=== PATIENT | female | born 1950 | race Caucasian/White ===

== ENCOUNTER → 2019-12-09 10:18 | Outpatient (BNVA) | payer MEDICARE, SELFPAY | PROVIDERS: Family Provider Family Medicine; PCP Family Medicine; Visit Provider Internal Medicine Rheumatology | DX: M35.00 Sjogren syndrome, unspecified (principal); M15.9 Polyosteoarthritis, unspecified; M06.9 Rheumatoid arthritis, unspecified; Z79.899 Other long term (current) drug therapy; M79.7 Fibromyalgia | CPT/HCPCS: 36415; 80053; 85007; 85027; 99214 ==

== ENCOUNTER → 2019-12-10 09:36 | Outpatient (BNVA) | payer MEDICARE, SELFPAY | PROVIDERS: Family Provider Family Medicine; PCP Family Medicine; Visit Provider Internal Medicine Rheumatology | DX: M75.51 Bursitis of right shoulder (principal); M75.52 Bursitis of left shoulder; M17.11 Unilateral primary osteoarthritis, right knee | CPT/HCPCS: 20610; J3301 ==

== ENCOUNTER 2020-02-03 09:45 | Outpatient (CLI) | payer MEDICARE, SELFPAY ==
--- NOTE | 2020-02-03 09:47 | MR_ITS ---
WS: [id number] MRI LUMBAR SPINE NONCONTRAST HISTORY: CHRONIC LUMBAR PAIN COMPARISON: Lumbar spine radiograph 10/30/2019 TECHNIQUE: Sagittal and axial multisequence imaging is submitted. Mild straightening of the normal lumbar lordosis. 20% compression fracture involving the superior end plate of L1 is reidentified. No retropulsion. No acute marrow edema. Very mild disc desiccation throughout the lumbar spine. Conus terminates normally at L1-2 disc level. L1-L2: Mild annular disc bulging and osteophytic ridging. There is a central disc osteophyte complex. No significant encroachment or narrowing of the central canal. L2-L3: No stenosis. L3-L4: Mild annular disc bulging with mild facet and ligamentum flavum arthropathy. No stenosis. L4-L5: Very mild annular disc bulging with annular fissures centrally and to the RIGHT. Moderate liga mentum flavum hypertrophy which is slightly asymmetric and greater on the LEFT. Widening of the with fluid. Fluid within the RIGHT facet joint measures 3.6 mm. There is mild central and subarticular rec ess stenosis. L5-S1: Mild annular disc bulging. 7.8 mm cyst in the far lateral LEFT foramen is inseparable from th e L5 nerve root. May be a nerve root sleeve diverticulum. There is contact on the L5 nerve root. Mild facet joint arthropathy and fluid in the facet joints. MR/MR lumbar spine wo con* [id number] IMPRESSION: 1. Mild central and subarticular recess stenosis at L4-5. 2. Widened fluid-filled facet joints at L4-5, greatest on the RIGHT with the f acet joint separation measuring 3.6 mm. 3. Cystic mass associated with the far lateral LEFT L5 nerve root measures 7.8 mm. May be a nerve root sleeve diverticulum. Further evaluation with contrast MRI is recommended. Cystic mass is inseparable from the LEFT L5 nerve root. 4. Stable 20% compression fracture L1.
== END 2020-02-03 09:46 | disposition home or self-care (01) ==
LOC: RADSHAW 09:45
PROVIDERS: Family Provider Family Medicine; PCP Family Medicine; Visit Provider Family Medicine
DX: M51.26 Other intervertebral disc displacement, lumbar region (principal); M48.061 Spinal stenosis, lumbar region without neurogenic claudication; M54.5 Low back pain; G89.29 Other chronic pain
CPT/HCPCS: 72148

== ENCOUNTER 2020-02-24 09:50 | Outpatient (CLI) | payer MEDICARE, SELFPAY ==
--- NOTE | 2020-02-24 09:56 | MR_ITS ---
WS: [id number] MRI LUMBAR SPINE WITH CONTRAST TECHNIQUE: Sagittal T2 imaging. Axial T1 and T2 imaging. Post gadolinium imaging was obtained. CLINICAL INFORMATION: CHRONIC BACK PAIN/CYSTIC MASS SHOWN ON MRI LSPINE W/O COMPARISON: February 03, 2020 FINDINGS: Again seen is the T2 hyperintense cystic lesion involving the exiting left L5 nerve root measuring 8 mm. Associated peripheral enhancement about the cystic lesion. Cystic lesion abuts the left L5 fluid- filled facets and most likely represents synovial cyst or nerve root sleeve cyst. Otherwise no signif icant changes from previous MR/MR lumbar spine w con [id number] IMPRESSION: 1. Peripheral enhancing 8 mm T2 hyperintense cystic lesion involving the exiti ng left L5 nerve root. This abuts the left L5 fluid-filled facet and most likel y represents synovial cyst or nerve root sleeve cyst. No internal enhancement. 2. Otherwise no significant changes from previous.
== END 2020-02-24 09:51 | disposition home or self-care (01) ==
LOC: RADWPI 09:55
PROVIDERS: Family Provider Family Medicine; PCP Family Medicine; Visit Provider Family Medicine
DX: G89.29 Other chronic pain (principal); M54.5 Low back pain
CPT/HCPCS: 72149; A9579

== ENCOUNTER → 2020-03-10 10:22 | Outpatient (BNVA) | payer MEDICARE, SELFPAY | PROVIDERS: Family Provider Family Medicine; PCP Family Medicine; Visit Provider Internal Medicine Rheumatology | DX: M19.90 Unspecified osteoarthritis, unspecified site (principal); M35.00 Sjogren syndrome, unspecified; Z79.899 Other long term (current) drug therapy; Z11.59 Encounter for screening for other viral diseases; Z72.89 Other problems related to lifestyle | CPT/HCPCS: 36415; 80076; 82565; 85025; 85651; 86140; 86704; 86803; 87340 ==

== ENCOUNTER 2020-05-25 11:00 | Outpatient (CLI) | payer MEDICARE, SELFPAY | END 2020-05-25 11:01 | disposition home or self-care (01) | LOC: SLEEP 05-26 11:57 | PROVIDERS: Family Provider Family Medicine; PCP Family Medicine; Visit Provider Internal Medicine Critical Care Medicine | DX: J96.90 Respiratory failure, unspecified, unspecified whether with hypoxia or hypercapnia (principal) | CPT/HCPCS: 94762 ==

== ENCOUNTER → 2020-06-18 11:37 | Outpatient (BNVA) | payer MEDICARE, SELFPAY | PROVIDERS: Family Provider Family Medicine; PCP Family Medicine; Visit Provider Internal Medicine | DX: M35.00 Sjogren syndrome, unspecified (principal); M17.0 Bilateral primary osteoarthritis of knee; Z79.899 Other long term (current) drug therapy | CPT/HCPCS: 99213 ==

== ENCOUNTER → 2020-06-25 10:26 | Day surgery (SDC) | payer MEDICARE, SELFPAY ==
[2020-06-25 10:45] VITALS: BP 122/72; PULSE 76; RESP 20; TEMP 37; O2SAT 96; BMI 36.8
[2020-06-25] MEDS: cosyntropin 0.25 mg SDV IVP (11:25)
[2020-06-25 12:04] LABS: Cosyntropin Baseline 2.88 mcg/dL
[2020-06-25 13:18] LABS: Cosyntropin 30 Minute 19.45 mcg/dL
== END ==
LOC: OPS 10:29
PROVIDERS: PCP Family Medicine; Visit Provider Family Medicine
DX: E87.1 Hypo-osmolality and hyponatremia (principal)
CPT/HCPCS: 36415; 82533; 96374; 96375; J0834

== ENCOUNTER 2020-07-22 16:11 | Emergency (ER) | payer MEDICARE, SELFPAY ==
[2020-07-22 16:11] VITALS: BP 115/64; PULSE 78; RESP 16; TEMP 36.8; O2SAT 95; BMI 36.2
--- NOTE | 2020-07-22 16:26 | ECG_ITS ---
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 Measurements Intervals [place] Rate: 48 P: 51 SC: 200 QRS: -58 QRSD: 134 T: 77 QT: 516 QTc: 464 Interpretive Statements SINUS BRADYCARDIA INTRAVENTRICULAR CONDUCTION DELAY LEFT VENTRICULAR HYPERTROPHY AND ST-T CHANGE POSSIBLE ANTEROSEPTAL MYOCARDIAL INFARCTION , OF INDETERMINATE AGE Compared to ECG 05/04/2015 05:29:44 Intraventricular conduction delay now present Left ventricular hypertrophy now present ST (T wave) deviation now present Myocardial infarct finding now present Sinus rhythm no longer present T-wave abnormality no longer present Electronically Signed On 07-23-2020 11:34:42 CDT by Pauly Haley M.D. [id number] f
--- NOTE | 2020-07-22 16:26 | XR_ITS ---
WS: [id number] Portable AP upright chest, 07/22/2020 Clinical Data: CHF Comparison: PA and lateral chest, 04/30/2018. Findings: No nodules, masses or effusions are seen. The heart is normal. The pulmonary vascularity is not increased. No pneumonia or pneumothorax is seen. The right diaphragm is elevated and unchanged. There is an orthopedic anchor in the right humeral head. The aortic arch and descending aorta show to rtuosity. XR/XR chest 1V portable [id number] Impression: Atherosclerosis.
--- NOTE | 2020-07-22 16:27 | ED_ITS ---
HPI - Recheck/Abnormal Lab/Rx General: Chief Complaint: Recheck/Abnormal Lab/Rx Stated Complaint: ABNORMAL LABS/ LEG PAIN Time Seen by Provider: 07/22/20 16:25 History of Present Illness: HPI narrative: Patient arrived from [place] [facility] with a history of possible high potassium - and leg swelling that is going on for the last week. Patient in [place] [facility] due to recent back surgery and he is in for rehab. Patient received 3 units of blood while in the hospital in [place] do the 2 bleeding she had from the back surgery where they went into her abdomen L3-L4 she says. Now her leg swelled over the last week she has a history of diabetes and CHF denies any shortness of breath Review of Systems Narrative: Possible high potassium Const: Denies: fever(s), chills or body aches Eyes: Denies: change in vision or blurry vision ENMT: Denies: throat pain or nasal congestion Card: Reports: other (Leg swelling); Denies: dyspnea on exertion Resp: Denies: dyspnea, productive cough or non-productive cough GI: Denies: abdominal pain, nausea or vomiting Musc: Reports: back pain (Chronic); Denies: extremity pain Skin/Breast: Denies: rash Neuro: Denies: headache(s) Psych: Denies: anxiety or depression Prince/Lymph: Denies: easy bruising PFSH ED PFSH: Medical History (Updated 06/10/20 @ 17:19 by Pauly Haley MD) Allergic rhinitis Anxiety Autoimmune disorder Conjunctivitis Coronary atherosclerosis CPAP (continuous positive airway pressure) dependence CVA (cerebral vascular accident) Diabetes mellitus Fibromyalgia Hypertension Immunosuppression Medication monitoring encounter Osteoarthritis of knees, bilateral Polyosteoarthritis, unspecified Recurrent falls Rotator cuff tear arthropathy of both shoulders Sinusitis Sjogren's disease Sjogrens syndrome Surgical History (Updated 05/25/20 @ 09:11 by Camryn Lugo MD) H/O removal of cyst H/O rotator cuff surgery History of cholecystectomy Hx of knee surgery Hx of LASIK Hx of tubal ligation Family History Father Stroke CAD (coronary artery disease) Mother Parkinson disease Other Dementia Diabetes Thyroid disease Social History Smoking and tobacco status: never smoked Alcohol intake: current Alcohol intake frequency: holidays/special occasions only Alcohol type: beer Lives independently: Yes Household members: spouse Housing: House Marital status: Number of children: 4 Current occupational status: retired and disabled History of recent travel: No Current gender identity: Female Physical Exam Const: COMMON NORMALS: no acute distress, average body habitus and patient oriented x3 HENMT: COMMON NORMALS: normocephalic HEAD & SCALP: normal to inspection and normocephalic FACE & SINUS: normal facial exam Eye: COMMON NORMALS: conjunctivae normal GENERAL EYE: appearance normal, both eyes and all related structures CONJUNCTIVA: Yes conjunctivae normal Neck/C-Spine: COMMON NORMALS: no JVD Chest: COMMONS NORMALS: normal inspection of the chest Resp: COMMON NORMALS: normal respiratory effort AUSCULTATION: diminished lung sounds Cardio: COMMON NORMALS: no JVD, regular rate and regular rhythm RATE: regular rate RHYTHM: regular rhythm OTHER: 3+ edema bilateral extremities mild redness to the left lower extremity dry skin GI: COMMON NORMALS: Normal to inspection, nondistended, normoactive bowel sounds present Extremity: COMMON NORMALS: normal to inspection and full ROM Neuro: COMMON NORMALS: patient oriented x3 Course Vital Signs: Vital signs: Vital Signs Temperature 98.2 F 07/22/20 16:11 Pulse Rate 78 07/22/20 16:11 Respiratory Rate 16 07/22/20 16:11 Blood Pressure 115/64 07/22/20 16:11 Pulse Oximetry 95 07/22/20 16:11 Discharge Plan Discharge Prescriptions: No Action albuterol sulfate [ProAir HFA] 90 mcg/actuation HFA aerosol inhaler 2 puff INHALATION QID PRN (Reason: Shortness Of Breath) RF: 0 aspirin 325 mg tablet 325 mg PO DAILY RF: 0 Women's Multivitamin 18 mg iron-400 mcg-500 mg tablet 1 tab PO DAILY RF: 0 cholecalciferol (vitamin D3) 1,000 unit capsule 3,000 unit PO DAILY RF: 0 ibuprofen 800 mg tablet 800 mg PO TID PRN (Reason: Pain, Mild) RF: 0 fluticasone propionate [Flonase Allergy Relief] 50 mcg/actuation spray,suspension 2 spray INTRANASAL DAILY RF: 0 levothyroxine 125 mcg capsule 125 mcg PO DAILY RF: 0 levothyroxine 100 mcg capsule 100 mcg PO DAILY RF: 0 tramadol 50 mg tablet See Rx Instructions PO Q8H PRN (Reason: pain) Qty: 180 RF: 2 mecobalamin (vitamin B12) 5,000 mcg tablet,disintegrating 5,000 mcg PO DAILY RF: 0 oxycodone-acetaminophen 5-325 mg tablet 1 tab PO Q8H PRN (Reason: Pain, Severe) RF: 0 Trelegy Ellipta 100-62.5-25 mcg blister with device 1 inh INHALATION Q24H RF: 0 spironolactone 25 mg tablet 25 mg PO DAILY RF: 0 metformin 500 mg tablet 1,000 mg PO DAILY RF: 0 citalopram [Celexa] 20 mg tablet 20 mg PO DAILY RF: 0 lisinopril 20 mg tablet 20 mg PO DAILY RF: 0 diltiazem HCl 240 mg capsule,extended release 24 hr 240 mg PO QAM RF: 0 montelukast 10 mg tablet 10 mg PO DAILY RF: 0 Narcan 4 mg/actuation spray,non-aerosol 4 mg INTRANASAL Q2M RF: 0 nitroglycerin [Nitrostat] 0.4 mg tablet, sublingual 0.4 mg SUBLINGUAL Q5M PRN (Reason: Chest Pain) RF: 0 pilocarpine HCl [Salagen (pilocarpine)] 5 mg tablet 5 mg PO BID Qty: 180 RF: 3 cyclobenzaprine 5 mg tablet 5 mg PO TID PRN (Reason: muscle spasm) Qty: 90 RF: 2 gabapentin 400 mg capsule See Rx Instructions PO DAILY Qty: 150 RF: 2 hydroxychloroquine [Plaquenil] 200 mg tablet 200 mg PO BID Qty: 60 RF: 2 omeprazole 20 mg capsule,delayed release(DR/EC) 20 mg PO DAILY Qty: 30 RF: 2 isosorbide dinitrate 30 mg Tablet 30 mg PO TID RF: 0 Myrbetriq 25 mg tablet extended release 24 hr 25 mg PO DAILY RF: 0 nystatin 100,000 unit/gram Powder 1 applic TOPICAL BID RF: 0 leflunomide 10 mg tablet 15 mg PO DAILY RF: 0 Savella 50 mg tablet 50 mg PO BID RF: 0 Coding Level of Care Code ED 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
[2020-07-22 16:54] VITALS: BP 115/63; PULSE 75; RESP 17; O2SAT 96
[2020-07-22 17:06] LABS: Basophils % 0.2 %; Eosinophils # 0.3 10^3/uL (0.0-0.8); Eosinophils % 4.2 %; Hematocrit 32.4 % (37.0-47.0); Hemoglobin 9.9 g/dL (11.5-15.3); Lymphocytes # 0.9 10^3/uL (0.8-4.8); Lymphocytes % 15.2 %; Mean Corpuscular HGB Conc 30.6 g/dL (30.0-36.0); Mean Corpuscular Hemoglobin 26.5 pg (28.0-34.0); Mean Corpuscular Volume 86.9 fL (81-99); Mean Platelet Volume 9.6 fL (7.4-10.4); Monocytes # 0.5 10^3/uL (0.2-0.9); Monocytes % 7.9 %; Neutrophils # 4.38 10^3/uL (1.8-7.7); Neutrophils % 70.6 %; Nucleated Red Blood Cells % 0 %; Platelet Count 515 10^3/cmm (130-400); Red Blood Count 3.73 10^6/uL (4.1-5.3); Red Cell Distribution Width 15.8 % (12.1-15.1); White Blood Count 6.2 10^3/uL (4.0-10.0)
[2020-07-22 17:40] LABS: Alanine Aminotransferase 13 U/L (0-33); Albumin Level 3.4 g/dL (3.5-5.2); Alkaline Phosphatase 159 IU/L (35-105); Anion Gap 17.4 (5-19); Aspartate Amino Transferase 20 U/L (0-32); Blood Urea Nitrogen 27 mg/dL (8-23); Calcium 8.6 mg/dL (8.5-10.5); Carbon Dioxide 19 mmol/L (22-29); Chloride 99 mmol/L (98-107); Globulin 2.4 g/dL (1.3-4.6); Glomerular Filtration Rate 34.4 mL/min (90-130); Glucose 87 mg/dL (65-115); NT Pro B Type Natriuretic Pept 757 pg/mL (0-125); Osmolality Calculated 266 mOsm/kg (285-295); Potassium 5.4 mmol/L (3.5-5.1); Sodium 130 mmol/L (136-145); Total Bilirubin 0.3 mg/dL (0.15-1.2); Total Protein 5.8 g/dL (6.6-8.7)
--- NOTE | 2020-07-22 18:11 | USCV_ITS ---
Sol Wall Age: 70 Gender: F : 1950 Exam Date: 07/22/2020 20:50 Ordering Phys: Chelsea Godoy MD Technologist: Severino Felder [place] [facility] [place]: BILAT EDEMA HISTORY: Lower extremity swelling. PROCEDURES: The venous duplex Doppler examination of both lower extremities was performed in the standard fashion. The following venous structures were evaluated: common femoral vein, profunda vein, proximal portion of the greater saphenous vein, superficial femoral vein, and the popliteal vein. In addition, the posterior tibial and peroneal trunk were evaluated. Bilaterally, the common femoral, superficial femoral, profunda femoral, popliteal, posterior tibial, greater saphenous veins, and the peroneal trunk were identified and interrogated in the standard fashion. These veins were found to be easily compressible with spontaneous blood flow. No evidence of insufficiency or thrombus noted. FINDINGS: Normal 2-D Doppler and augmentation and compressibility throughout the lower extremity venous structures. Additional imaging through the proximal calf veins also reveals no thrombus. Limited evaluation of the greater saphenous vein is patent with no thrombus.. CONCLUSIONS No evidence of right lower extremity DVT. No evidence of left lower extremity DVT. Malick Capone MD (Electronically Signed) Final Date: 23 July 2020 14:36 S
[2020-07-22 18:16] LABS: Add Urine Microscopic? YES; Bilirubin Urine Neg (NEGATIVE); Blood Urine Neg (Negative); Glucose Urine UA Norm (Normal); Ketones Urine Negative (Negative); Leukocyte Esterase Urine Negative (Negative); Nitrate Urine Negative (Negative); Protein Urine Neg (Negative); Urine Appearance Hazy (CLEAR); Urine Color Yellow (Yellow); Urobilinogen Urine Norm (Negative); pH Urine 5 (5-7)
[2020-07-22 18:22] LABS: Add Urine Culture? No; Bacteria Urine TRACE
[2020-07-22] MEDS: FUROsemide 10 mg/mL SDV 4mL 40 MG IVP (19:03)
[2020-07-22 19:05] VITALS: BP 105/51; PULSE 78; RESP 20; O2SAT 93
[2020-07-22 20:32] VITALS: BP 128/67; PULSE 83
[2020-07-22 21:15] VITALS: RESP 16
[2020-07-22] MEDS: morphine 4 mg/mL SDV 1 mL IVP (21:15)
[2020-07-22 22:23] VITALS: BP 114/69; O2SAT 90
== END 2020-07-22 22:26 | disposition home or self-care (01) ==
PROVIDERS: Nurse Practitioner Family; Emergency Provider Emergency Medicine; PCP Family Medicine
DX: M79.89 Other specified soft tissue disorders (principal); Z79.82 Long term (current) use of aspirin; Z86.73 Personal history of transient ischemic attack (TIA), and cerebral infarction without residual deficits; E11.9 Type 2 diabetes mellitus without complications; I10 Essential (primary) hypertension
CPT/HCPCS: 12345; 71045; 80053; 81001; 83880; 85025; 93005; 93970; 96374; 96375; 99283; J1940; J2270

== ENCOUNTER 2020-07-30 03:10 | Emergency (ER) | payer MEDICARE, SELFPAY ==
[2020-07-30 03:10] VITALS: BP 131/88; PULSE 89; RESP 16; TEMP 36.8; O2SAT 94; BMI 36.2
--- NOTE | 2020-07-30 03:14 | W.ED.FALL ---
HPI - Fall General: Chief Complaint: Fall Stated Complaint: FALL Time Seen by Provider: 07/30/20 03:10 Source: patient and EMS Mode of arrival: EMS Limitations: no limitations History of Present Illness: HPI Narrative: 70-year-old female states she had gotten up tonight and tripped and fell. She fell face forward onto her floor. She states she hit her head and her nose. She does have a small laceration to the bridge of her nose. She has mild pain in her nose she rates a 3 out of 10. She denies any other injuries. Denies any neck pain. Onset (ago): minute(s) Fall from: standing Fall witnessed: no Place fall occurred: home Loss of consciousness: None Associated symptoms-after fall: Denies abdominal pain, chest pain, headache(s) or neck pain Review of Systems Const: Denies: fever(s), chills, body aches or change in appetite Eyes: Denies: blurry vision or eye discomfort ENMT: Denies: throat pain or dental pain Card: Denies: chest pain Resp: Denies: dyspnea GI: Denies: abdominal pain, nausea, vomiting or diarrhea : Denies: dysuria Musc: Denies: neck pain or back pain Skin/Breast: Denies: rash Neuro: Denies: headache(s) Psych: Denies: depression Prince/Lymph: Denies: easy bruising All/Imm: Denies: urticaria PFSH ED PFSH: Medical History Allergic rhinitis Anxiety Autoimmune disorder Conjunctivitis Coronary atherosclerosis CPAP (continuous positive airway pressure) dependence CVA (cerebral vascular accident) Diabetes mellitus Fibromyalgia Hypertension Immunosuppression Medication monitoring encounter Osteoarthritis of knees, bilateral Polyosteoarthritis, unspecified Recurrent falls Rotator cuff tear arthropathy of both shoulders Sinusitis Sjogren's disease Sjogrens syndrome Surgical History H/O removal of cyst H/O rotator cuff surgery History of cholecystectomy Hx of knee surgery Hx of LASIK Hx of tubal ligation Family History Father Stroke CAD (coronary artery disease) Mother Parkinson disease Other Dementia Diabetes Thyroid disease Social History Smoking and tobacco status: never smoked Alcohol intake: current Alcohol intake frequency: holidays/special occasions only Alcohol type: beer Lives independently: Yes Household members: spouse Housing: House Marital status: Number of children: 4 Current occupational status: retired and disabled History of recent travel: No Current gender identity: Female Physical Exam Const: COMMON NORMALS: no acute distress, patient oriented x3 and healthy appearing HENMT: COMMON NORMALS: normocephalic and atraumatic HEAD & SCALP: normocephalic and atraumatic OTHER: contusion and laceration to bridge of nose. laceration is 1cm and superficial Eye: COMMON NORMALS: Equal, round and reactive pupils present and EOMs intact bilaterally PUPIL: Yes Equal, round and reactive pupils present Neck/C-Spine: COMMON NORMALS: full ROM and supple Chest: COMMONS NORMALS: normal inspection of the chest and normal palpation of entire chest wall Resp: COMMON NORMALS: normal respiratory effort, No retractions, No use of accessory muscles and clear to auscultation bilaterally AUSCULTATION: clear to auscultation bilaterally Cardio: COMMON NORMALS: regular rate, regular rhythm and No murmurs present (Cardio) RATE: regular rate RHYTHM: regular rhythm GI: COMMON NORMALS: Normal to inspection, nondistended, normoactive bowel sounds present, Soft to palpation, non-tender and no masses PALPATION: Yes Soft to palpation Extremity: COMMON NORMALS: normal to inspection and full ROM Neuro: COMMON NORMALS: patient oriented x3, moves all extremities and no focal motor deficits Psych: COMMON NORMALS: mental status grossly normal, Normal thought process present and cooperative THOUGHT PROCESS: Normal thought process present Skin: COMMON NORMALS: no rashes or lesions noted and no wounds GENERAL SKIN EXAM: no rashes or lesions noted Procedures Laceration Laceration 1: Site: face Size (cm): 1 Description: linear Depth: simple, single layer Pre-repair: wound explored and irrigated extensively Skin layer closed with: other (dermabond) Course Vital Signs: Vital signs: Vital Signs Temperature 98.3 F 07/30/20 03:10 Pulse Rate 89 07/30/20 03:10 Respiratory Rate 18 07/30/20 04:35 Blood Pressure 131/88 07/30/20 03:10 Pulse Oximetry 97 09/04/20 04:35 MDM - Fall MDM Narrative: Medical decision making narrative: Sol presents here with nasal fracture along with laceration from a fall. Patient's head CT here is normal CT face does show a nasal fracture.. The laceration with history of adhesive. Patient is well-appearing and stable for discharge. Patient is to follow-up with ENT and return if worsening. She understands and agrees to the plan. Imaging Data^: CT Head: Radiologist's impression: [address] [address] [address] Scan Report Signed Patient: Sol Wall Unit #: [id number] : 1950 Age/Sex: 70 / F ADM Date: 07/30/20 Loc: ER Room/Bed: Attending Dr: Ordering Provider/Ordering MD: Laura Lara MD Date of Service: 07/30/20 Procedure(s): CT head wo con* [id number] Accession Number(s): [id number] Report Number: [id number] PROCEDURE INFORMATION: Exam: CT Head Without Contrast Exam date and time: 07/30/2020 4:19 AM Age: 70 years old Clinical indication: Injury or trauma; Fall; Initial encounter; Blunt trauma (contusions or hematomas); Without loss of consciousness; Additional info: Head injury TECHNIQUE: Imaging protocol: Computed tomography of the head without contrast. Radiation optimization: All CT scans at this facility use at least one of these dose optimization techniques: automated exposure control; mA and/or kV adjustment per patient size (includes targeted exams where dose is matched to clinical indication); or iterative reconstruction. COMPARISON: MR head wo con* [id number] 01/10/2016 5:14 PM RADIATION DOSE METRICS: Total DLP (mGy-cm): 892 FINDINGS: Brain: There is mild diffuse cerebral atrophy. Patchy areas of hypoattenuation are seen in the deep white matter of the cerebral hemispheres bilaterally compatible with deep white matter microvascular disease. Ventricles: Normal. No ventriculomegaly. Bones/joints: There is deformity of the nasal bones compatible with nasal fractures. Sinuses: Fluid and mucosal thickening is seen within the left maxillary sinus. Mastoid air cells: Visualized mastoid air cells are well aerated. Soft tissues: Unremarkable. CT/CT head wo con* [id number] IMPRESSION: 1. There are no acute intracranial findings. 2. Nasal fractures. Other CT: Radiologist's impression: [facility] [address] [place] [address] CT Scan Report Signed Patient: Sol Wall Unit #: [id number] : 1950 Age/Sex: 70 / F ADM Date: 07/30/20 Loc: ER Room/Bed: Attending Dr: Ordering Provider/Ordering MD: Laura Lara MD Date of Service: 07/30/20 Procedure(s): CT facial bones wo con* [id number] Accession Number(s): [id number] Report Number: [id number] PROCEDURE INFORMATION: Exam: CT Maxillofacial Without Contrast Exam date and time: 07/30/2020 4:19 AM Age: 70 years old Clinical indication: Injury or trauma; Fall; Initial encounter; Blunt trauma (contusions or hematomas); Nose; Additional info: CT TECHNIQUE: Imaging protocol: Computed tomography images of the face without contrast. Radiation optimization: All CT scans at this facility use at least one of these dose optimization techniques: automated exposure control; mA and/or kV adjustment per patient size (includes targeted exams where dose is matched to clinical indication); or iterative reconstruction. COMPARISON: CT Sinus wo IV contrast* [id number] 11/16/2017 11:40 AM RADIATION DOSE METRICS: Total DLP (mGy-cm): 742.8 FINDINGS: Orbits: Orbits are normal. Globes are unremarkable. Bones/joints: There is deformity of the nasal bones compatible with bilateral nasal fractures. Sinuses: Fluid and mucosal thickening is seen within the left maxillary sinus. Soft tissues: Unremarkable. CT/CT facial bones wo con* [id number] IMPRESSION: Bilateral nasal fractures. Discharge Plan Discharge Patient Disposition: Home Clinical Impression: Fall Qualifiers: Encounter type: initial encounter Qualified Code(s): W19.XXXA - Unspecified fall, initial encounter Fracture of nasal bone Qualifiers: Encounter type: initial encounter Fracture type: closed Qualified Code(s): S02.2XXA - Fracture of nasal bones, initial encounter for closed fracture Laceration of nose Qualifiers: Encounter type: initial encounter Qualified Code(s): S01.21XA - Laceration without foreign body of nose, initial encounter Condition: Stable Prescriptions: No Action cholecalciferol (vitamin D3) 1,000 unit capsule 25 mcg PO DAILY RF: 0 fluticasone propionate [Flonase Allergy Relief] 50 mcg/actuation spray,suspension 2 spray INTRANASAL DAILY RF: 0 levothyroxine 100 mcg capsule 112 mcg PO DAILY RF: 0 tramadol 50 mg tablet See Rx Instructions PO Q8H PRN (Reason: pain) Qty: 180 RF: 2 oxycodone-acetaminophen 5-325 mg tablet 1 tab PO Q4H PRN (Reason: Pain, Severe) RF: 0 Trelegy Ellipta 100-62.5-25 mcg blister with device 2 inh INHALATION Q24H RF: 0 spironolactone 25 mg tablet 25 mg PO DAILY RF: 0 metformin 500 mg tablet 500 mg PO BID RF: 0 citalopram [Celexa] 20 mg tablet 20 mg PO DAILY RF: 0 lisinopril 20 mg tablet 20 mg PO DAILY RF: 0 diltiazem HCl 240 mg capsule,extended release 24 hr 240 mg PO QAM RF: 0 montelukast 10 mg tablet 10 mg PO DAILY RF: 0 pilocarpine HCl [Salagen (pilocarpine)] 5 mg tablet 5 mg PO BID Qty: 180 RF: 3 gabapentin 400 mg capsule See Rx Instructions PO DAILY Qty: 150 RF: 2 hydroxychloroquine [Plaquenil] 200 mg tablet 200 mg PO BID Qty: 60 RF: 2 omeprazole 20 mg capsule,delayed release(DR/EC) 20 mg PO DAILY Qty: 30 RF: 2 leflunomide 10 mg tablet 15 mg PO DAILY RF: 0 Lasix 40 mg Tablet 40 mg PO DAILY RF: 0 nystatin 100,000 unit/mL Suspension 1 ml PO QID RF: 0 prednisone 20 mg Tablet 40 mg PO DAILY RF: 0 Senna-S 8.6-50 mg Tablet 1 tab-cap PO BID PRN (Reason: Constipation) RF: 0 sodium chloride 1 gram Tablet 1,000 mg PO BID RF: 0 MagOx 400 mg (241.3 mg magnesium) Tablet 400 mg PO DAILY RF: 0 Milk of Magnesia 400 mg/5 mL Suspension 30 ml PO DAILY PRN (Reason: Constipation) RF: 0 bisacodyl 10 mg Suppository 10 mg OH DAILY PRN (Reason: Constipation) RF: 0 Benadryl 25 mg Capsule 25 mg PO Q6H PRN (Reason: Allergy Symptoms) RF: 0 Enema 19-7 gram/118 mL Enema 118 ml OH DAILY PRN (Reason: Constipation) RF: 0 aspirin 81 mg Tablet,Chewable 81 mg PO DAILY RF: 0 Miralax 17 gram/dose Powder 17 g PO DAILY PRN (Reason: Constipation) RF: 0 biotin 1,000 mcg Tablet,Chewable 1,000 mcg PO DAILY RF: 0 cyclobenzaprine 5 mg tablet 20 mg PO BID RF: 0 Discharge Orders: Discharge Order (Routine); Ordered 07/30/20 Ordered By: Laura Lara Referrals: Darrick Burnett MD [Physician] - 1-3 days Pool Arriaga MD [Primary Care Provider] - Discharge Diet: Advance as tolerated Discharge Activity: Resume usual activity Patient Instructions: Nasal Fracture (ED), Skin Adhesive Care (ED) Coding Level of Care Code ED Cotton Breeder for Chg Fwd Exam Comprehensive
[2020-07-30 04:35] VITALS: RESP 18; O2SAT 97
[2020-07-30 05:01] VITALS: BP 148/80
--- NOTE | 2020-07-30 08:06 | DCPLANNER ---
supportive employment case manager had message to schedule a follow up appointment for patient with Dr. Burnett, ENT. supportive employment case manager faxed patients information to the office of Dr. Burnett. Clinic will call patient with appointment information.
--- NOTE | 2020-08-06 15:35 | DCPLANNER ---
Patient has a follow up appointment scheduled for Sunday, August 09, [address] at 2:[address] Burnett. Clinic called patient with appointment information.
--- NOTE | 2020-08-19 08:26 | DCPLANNER ---
Patient had a follow up appointment with Dr. Burnett, ENT on 08.10.20 - patient did attend the appointment.
== END 2020-07-30 05:02 | disposition home or self-care (01) ==
PROVIDERS: Emergency Provider Emergency Medicine; PCP Family Medicine
DX: S02.2XXA Fracture of nasal bones, initial encounter for closed fracture (principal); S01.21XA Laceration without foreign body of nose, initial encounter; Z79.82 Long term (current) use of aspirin; W01.0XXA Fall on same level from slipping, tripping and stumbling without subsequent striking against object, initial encounter; Z86.73 Personal history of transient ischemic attack (TIA), and cerebral infarction without residual deficits; E11.9 Type 2 diabetes mellitus without complications; I10 Essential (primary) hypertension
CPT/HCPCS: 12345; 70450; 70486; 99281; 99283

== ENCOUNTER 2020-08-11 10:54 | Outpatient (CLI) | payer MEDICARE, SELFPAY ==
[2020-08-11 11:46] LABS: Lipase 57 U/L (13-60)
== END 2020-08-11 10:55 | disposition home or self-care (01) ==
LOC: LAB 10:58
PROVIDERS: PCP Family Medicine; Visit Provider Family Medicine
DX: R11.0 Nausea (principal); R62.7 Adult failure to thrive
CPT/HCPCS: 83690

== ENCOUNTER 2020-08-16 09:54 | Outpatient (CLI) | payer MEDICARE, SELFPAY ==
--- NOTE | 2020-08-16 10:04 | XR_ITS ---
WS: [id number] LUMBAR SPINE: 3 VIEWS TECHNIQUE: AP, lateral and L5-S1 spot. HISTORY: ARTHRODESIS STATUS COMPARISON: 10/30/2019 Anterior lumbar fusion at L4-5 with interbody spacer are new since 10/30/2019. No prior studies for co mparison. No lucency around the hardware. Moderate disc space narrowing at L4-5. Facet joint arthriti s most significant at L5-S1. Mild compression deformity involving the superior endplate of L1 probabl y not significantly changed since prior studies. SI joints are symmetric bilaterally. No soft tissue abnormalities. Prior cholecystectomy. XR/XR lumbar spine 2-3V* [id number] IMPRESSION: 1. Interval anterior lumbar fusion with interbody spacer at the L4-5 level sin ce 10/30/2019. No complications apparent. No comparison radiographs. 2. Stable chronic compression deformity of L1.
== END 2020-08-16 09:55 | disposition home or self-care (01) ==
LOC: RADWPI 09:59
PROVIDERS: Family Provider Family Medicine; PCP Family Medicine; Visit Provider Physician Assistant Surgical
DX: Z98.1 Arthrodesis status (principal)
CPT/HCPCS: 72100

== ENCOUNTER 2020-08-24 11:18 | Outpatient (CLI) | payer MEDICARE, SELFPAY ==
--- NOTE | 2020-08-24 11:25 | CT_ITS ---
WS: [id number] CT ABDOMEN PELVIS TECHNIQUE: Contrast-enhanced CT of the abdomen and pelvis with coronal and sagittal reformatted image s. CLINICAL INFORMATION: VOMITING COMPARISON: None. DLP: 1247.[address] scans at [facility] use at least one of these dose optimization techniques: automat ed exposure control; mA and/or kV adjustment per patient size (includes targeted exams where dose is matched to clinical indication); or iterative reconstruction. FINDINGS: Postoperative changes L4-5 anterior screw fixation with interbody fusion graft. No evidence of hardwa re loosening. Low-attenuation peripheral enhancing fluid collection in the left lower quadrant presum ably along the surgical tract. Fluid collection measures 11.8 x 11.8 x 11.6 cm with peripheral enhanc ement. Minimal surrounding induration. This extends to abut the anterior fusion at L4-5. Mass effect on the adjacent bowel loops. No evidence of high-grade obstruction. Normal liver. Mild intrahepatic biliary ductal dilatation. Cholecystectomy clips. Fatty atrophy of th e pancreas. Splenic granulomas. Normal GE junction. Normal bilateral renal parenchymal enhancement. S mall left adrenal adenoma measuring 13 mm. Slight subsegmental atelectasis in the lung bases. Left pelvocaliectasis and ureterectasis with obstruction of the left ureter via the large fluid colle ction. Left distal ureter not well visualized. Normal caliber abdominal aorta. No periaortic lymphadenopathy. Normal sigmoid colon. A few diverticul i. Sigmoid colon is displaced into the midabdomen. No evidence of large or small bowel obstruction. T hickening with peripheral enhancement and surrounding inflammation involving the cecum and ascending colon extending into the hepatic flexure suspicious for colitis. Transverse colon is normal and decom pressed. Normal appendix. Distal ileum appears normal. Mild inflammatory stranding with a few reactive lymph nodes in the right lower quadrant. CT/CT abdomen pelvis w con* [id number] IMPRESSION: 1. Large peripherally enhancing low-attenuation fluid collection in the left l ower abdomen extending into the pelvis. This abuts the L4-5 fusion likely due t o recent surgery. Low-attenuation fluid collection likely represents postoperat preston seroma with peripheral enhancement measuring 11.8 11.8 x 1.6 cm. Only minim al surrounding induration. 2. Inflammatory stranding with submucosal enhancement and thickening involving the cecum and ascending colon suspicious for colitis. A few reactive lymph nod es in the right lower quadrant. Appendix appears normal. 3. Prior cholecystectomy. 4. Mild left renal pelvocaliectasis and ureterectasis with obstruction left ur eter by the large seroma. Recommend correlation with renal function. Normal garima al parenchymal enhancement. 5. L4-5 fusion and interbody graft appears in good position. Notified Pool Arriaga MD at 08/24/2020 2:03 PM.
[2020-08-24] MEDS: iohexol 300 mg/mL 50 mL Btl PO (12:02)
[2020-08-24] MEDS: iodixanol 320 mg/mL 100mL Btl IV (13:19)
== END 2020-08-24 11:19 | disposition home or self-care (01) ==
LOC: RADWPI 11:23
PROVIDERS: Family Provider Family Medicine; PCP Family Medicine; Visit Provider Family Medicine
DX: R11.10 Vomiting, unspecified (principal); M43.26 Fusion of spine, lumbar region; N13.4 Hydroureter
CPT/HCPCS: 74177; Q9967

== ENCOUNTER → 2020-09-06 09:43 | Outpatient (BNVA) | payer MEDICARE, SELFPAY | PROVIDERS: Family Provider Family Medicine; PCP Family Medicine; Visit Provider Specialist | DX: M17.0 Bilateral primary osteoarthritis of knee (principal); M23.42 Loose body in knee, left knee; M23.41 Loose body in knee, right knee | CPT/HCPCS: 73560; 73565 ==

== ENCOUNTER 2020-09-13 13:01 | Outpatient (CLI) | payer MEDICARE, SELFPAY ==
--- NOTE | 2020-09-13 13:10 | CT_ITS ---
WS: [id number] CT ABDOMEN AND PELVIS WITH CONTRAST HISTORY: INTRA ABDOMINAL FLUID TECHNIQUE: Imaging performed of the abdomen and pelvis with IV contrast. Single phase imaging of the abdomen. Coronal and sagittal reformats are submitted. All CT scans at [facility] use at least one of these dose optimization techniques: automated exposure control; mA and/or kV adjustment per patient size (includes targeted exams where dose is matched to clinical indication); or iterativ e reconstruction. IV CONTRAST: Visipaque 320; 95 mL IV. Oral contrast: Yes. DLP: 1220.75 mGycm COMPARISON: 08/24/2020 and 07/16/2013 Lower thorax: Slight elevation of the RIGHT hemidiaphragm. Heart is normal size. Small hiatal hernia. Liver/biliary system: Mild central bile duct dilatation is probably physiologic. There is mild hepati c steatosis along the falciform ligament. Gallbladder: Status post cholecystectomy. Common bile duct at the pancreatic head is dilated to 9 mm. Pancreas: Pancreas is atrophied. Spleen: Normal size spleen with numerous granulomata. Adrenal glands: Mild thickening of the LEFT adrenal gland is stable. Nodule measures 1.5 x 1.0 cm wit h no change. Stable since 2012. Right kidney: Normal. Left kidney: Normal. Resolved hydronephrosis since 08/24/2020. Aorta: Mild atherosclerosis with no aneurysm. Moderate decrease in size of the ovoid fluid collection in the LEFT pelvis. This collection extends o christianne length of 8.7 cm x 10.5 x 8.1 cm. There is been a moderate decrease in size since the prior study . Mass is inseparable from the fusion hardware in the lower lumbar spine. LEFT iliac artery is closel y associated with the posterior aspect. There is no enhancement within this fluid collection although there is some very mild peripheral enhancement. Lymphadenopathy: None. Free fluid: No free fluid. GI tract: Normal appendix. No GI tract obstruction. There is mild fecal retention. No significant inf lammation involving the cecum. Abdominal wall: Unremarkable abdominal wall. No hernia. Pelvis: No free fluid in the pelvis. Uterus is midline. No adnexal mass. Bones: Prior anterior lumbar fusion at L4-5. CT/CT abdomen pelvis w con* [id number] IMPRESSION: 1. Fluid collection with peripheral enhancement in the LEFT pelvis has moderat johnathan decreased in size since 08/24/2020. Thought to be related to the prior lumba r surgery. May be a seroma or resolving hematoma or lymphocele. 2. Resolved cecal enhancement and colitis. 3. Resolved mild LEFT hydronephrosis. 4. Stable LEFT adrenal gland nodule.
[2020-09-13] MEDS: iohexol 300 mg/mL 50 mL Btl PO (13:18)
[2020-09-13] MEDS: iodixanol 320 mg/mL 100mL Btl IV (15:08)
== END 2020-09-13 13:02 | disposition home or self-care (01) ==
LOC: RADWPI 13:05
PROVIDERS: PCP Family Medicine; Visit Provider Family Medicine
DX: R18.8 Other ascites (principal); D44.12 Neoplasm of uncertain behavior of left adrenal gland
CPT/HCPCS: 74177; Q9967

== ENCOUNTER 2020-10-29 12:39 | Outpatient (CLI) | payer MEDICARE, SELFPAY ==
--- NOTE | 2020-10-29 12:58 | XR_ITS ---
WS: [id number] Lumbar spine, AP and lateral views, 10/29/2020 Clinical Data: LUMBAR SPINAL FUSION Comparison: Lumbar spine, 08/16/2020. Findings: The anterior fusion of L4 and L5 with an interbody device has not changed. The patient has since had a posterior fusion with bilateral pedicle screws connected with rods at L4-L5. The loss of anterior a nd central vertebral body height of L1 and the slight loss of central vertebral body height of L2 hav e not changed. There are clips in the upper abdomen from a cholecystectomy. The transverse processes and SI joints are not remarkable. XR/XR lumbar spine 2-3V* [id number] Impression: 1. Posterior lumbar fusion at L4 and L5. 2. No change in anterior fusion of L4 and L5.
== END 2020-10-29 12:40 | disposition home or self-care (01) ==
LOC: RADWPI 12:41
PROVIDERS: PCP Family Medicine; Visit Provider Physician Assistant Surgical
DX: Z98.1 Arthrodesis status (principal); M43.26 Fusion of spine, lumbar region
CPT/HCPCS: 72100

== ENCOUNTER → 2020-11-25 09:10 | Outpatient (BNVA) | payer MEDICARE, SELFPAY | PROVIDERS: PCP Family Medicine; Visit Provider Internal Medicine | DX: M19.90 Unspecified osteoarthritis, unspecified site (principal); M17.0 Bilateral primary osteoarthritis of knee; M35.00 Sjogren syndrome, unspecified; Z79.899 Other long term (current) drug therapy; D86.9 Sarcoidosis, unspecified | CPT/HCPCS: 36415; 80053; 85025; 85651; 86140; 86431; 99214 ==

== ENCOUNTER 2020-11-30 12:47 | Outpatient (CLI) | payer MEDICARE, MEDICAID, SELFPAY ==
--- NOTE | 2020-11-30 12:52 | XR_ITS ---
WS: [id number] TECHNIQUE: 2 views of the left hand CLINICAL INFORMATION: Z51.81 - Encounter for therapeutic drug level monitoring COMPARISON: None. FINDINGS: Normal metacarpals. Normal MCP joint. Metacarpal heads are normal in appearance. Erosive changes with loss of the joint space and periarticular osteophytes involving the second and third DIP joints. Thi s is progressed since 2010. Radiocarpal joint: Mild narrowing Carpal bones: Degenerative arthritis first CMC and STT. XR/XR hand LT 2V [id number] IMPRESSION: 1. Erosive changes with loss of the joint space and periarticular osteophytes with subluxation involving the second and third DIP joints. This is new since . 2. Mild degenerative narrowing radiocarpal joint. 3. Moderate degenerative arthritis first CMC and STT with subchondral sclerosi s.
--- NOTE | 2020-11-30 12:52 | XR_ITS ---
WS: [id number] TECHNIQUE: 2 views of the right hand CLINICAL INFORMATION: Z51.81 - Encounter for therapeutic drug level monitoring COMPARISON: 2010 FINDINGS: Normal metacarpals. Normal MCP joint. Metacarpal heads are normal in appearance. Mild degenerative na rrowing involving the second and third DIP joints worse involving the third DIP with a small amount o f subchondral sclerosis. No significant erosive changes. Radiocarpal joint: Mild narrowing Carpal bones: Normal. XR/XR hand RT 2V [id number] IMPRESSION: 1. Mild degenerative arthritis worse involving the second and third DIP joints . No significant erosive changes. Small amount of subchondral sclerosis third D IP joint. 2. Mild narrowing of the radiocarpal joint. 3. Above findings have progressed since 2010.
== END 2020-11-30 12:48 | disposition home or self-care (01) ==
LOC: RADWPI 12:49
PROVIDERS: PCP Family Medicine; Visit Provider Internal Medicine
DX: Z51.81 Encounter for therapeutic drug level monitoring (principal); M19.042 Primary osteoarthritis, left hand
CPT/HCPCS: 73120

== ENCOUNTER → 2021-01-27 13:19 | Outpatient (BNVA) | payer MEDICARE, SELFPAY | PROVIDERS: PCP Family Medicine; Visit Provider Internal Medicine | DX: M19.90 Unspecified osteoarthritis, unspecified site (principal); M35.00 Sjogren syndrome, unspecified; D89.9 Disorder involving the immune mechanism, unspecified | CPT/HCPCS: 36415; 80053; 85025; 85651; 86140; 99214 ==

== ENCOUNTER 2021-03-29 07:48 | Outpatient (CLI) | payer MEDICARE, MEDICAID, SELFPAY ==
--- NOTE | 2021-03-29 08:24 | XR_ITS ---
WS: [id number] LUMBAR SPINE: 2 VIEWS TECHNIQUE: AP and lateral. HISTORY: ARTHRODESIS STATUS COMPARISON: 10/29/2020 There is extensive anterior and posterior fusion hardware at the L4-5 level. Posterior fusion screws and vertical rods appears intact. There is mild lucency around the pedicle screws at L4. Anterior fus ion hardware with interbody spacer is unchanged. L1 10% fracture is similar to 10/29/2020. Prior cholecystectomy. XR/XR lumbar spine 2-3V* [id number] IMPRESSION: 1. Anterior and posterior lumbar fusion hardware at L4-5 is unchanged in posit ion. 2. Very mild lucency surrounding the pedicle screws at L4 from the posterior f usion hardware. Cannot exclude loosening of the posterior pedicle screws.
== END 2021-03-29 07:49 | disposition home or self-care (01) ==
PROVIDERS: PCP Family Medicine; Visit Provider Physician Assistant Surgical
DX: Z98.1 Arthrodesis status (principal); M43.26 Fusion of spine, lumbar region
CPT/HCPCS: 72100

== ENCOUNTER → 2021-04-11 15:21 | Outpatient (BNVA) | payer MEDICARE, MEDICAID, SELFPAY | PROVIDERS: PCP Family Medicine; Visit Provider Internal Medicine | DX: M19.90 Unspecified osteoarthritis, unspecified site (principal); M35.00 Sjogren syndrome, unspecified; D89.9 Disorder involving the immune mechanism, unspecified; Z79.899 Other long term (current) drug therapy | CPT/HCPCS: 99213; 99214 ==

== ENCOUNTER → 2021-07-05 08:50 | Outpatient (BNVA) | payer MEDICARE, MEDICAID, SELFPAY | PROVIDERS: PCP Family Medicine; Visit Provider Internal Medicine | DX: M19.90 Unspecified osteoarthritis, unspecified site (principal); M35.00 Sjogren syndrome, unspecified; Z11.1 Encounter for screening for respiratory tuberculosis; D89.9 Disorder involving the immune mechanism, unspecified; Z79.899 Other long term (current) drug therapy | CPT/HCPCS: 36415; 80053; 85025; 86480; 99213; 99214 ==

== ENCOUNTER → 2021-11-09 13:09 | Outpatient (BNVA) | payer MEDICARE, MEDICAID, SELFPAY | PROVIDERS: PCP Family Medicine; Visit Provider Internal Medicine | DX: M19.90 Unspecified osteoarthritis, unspecified site (principal); M35.00 Sjogren syndrome, unspecified; R53.1 Weakness | CPT/HCPCS: 99214 ==

== ENCOUNTER → 2022-02-28 08:19 | Outpatient (BNVA) | payer MEDICARE, MEDICAID, SELFPAY | PROVIDERS: PCP Family Medicine; Visit Provider Internal Medicine | DX: M15.9 Polyosteoarthritis, unspecified (principal); M35.00 Sjogren syndrome, unspecified; R09.02 Hypoxemia; Z79.899 Other long term (current) drug therapy | CPT/HCPCS: 99214 ==

== ENCOUNTER 2022-02-28 10:24 | Outpatient (CLI) | payer MEDICARE, MEDICAID, SELFPAY ==
--- NOTE | 2022-02-28 11:41 | XR_ITS ---
WS: [id number] PROCEDURE: XR chest 2V* [id number] CLINICAL INFORMATION: Z79.899 - Other long-term (current) drug therapy COMPARISON: July 22, 2020 FINDINGS: Heart: Mild cardiomegaly unchanged. Lungs: Chronic elevation RIGHT hemidiaphragm unchanged. No acute pulmonary infiltrates. No focal pneu monia or pleural fluid. A few calcified granulomas. Bones: RIGHT rotator cuff anchors. XR/XR chest 2V* [id number] IMPRESSION: No acute chest findings
== END 2022-02-28 10:25 | disposition home or self-care (01) ==
LOC: RAD 10:37
PROVIDERS: PCP Family Medicine; Visit Provider Internal Medicine
DX: Z79.899 Other long term (current) drug therapy (principal)
CPT/HCPCS: 71046

== ENCOUNTER → 2022-03-02 09:34 | Outpatient (BNVA) | payer MEDICARE, MEDICAID, SELFPAY | PROVIDERS: PCP Family Medicine; Visit Provider Internal Medicine Critical Care Medicine | DX: J45.909 Unspecified asthma, uncomplicated (principal); Q79.1 Other congenital malformations of diaphragm; J96.90 Respiratory failure, unspecified, unspecified whether with hypoxia or hypercapnia; G47.30 Sleep apnea, unspecified; E11.8 Type 2 diabetes mellitus with unspecified complications; I10 Essential (primary) hypertension | CPT/HCPCS: 99214 ==

== ENCOUNTER → 2022-04-03 08:48 | Outpatient (BNVA) | payer MEDICARE, MEDICAID, SELFPAY | PROVIDERS: PCP Family Medicine; Visit Provider Internal Medicine Critical Care Medicine | DX: G47.30 Sleep apnea, unspecified (principal); J45.909 Unspecified asthma, uncomplicated; J96.90 Respiratory failure, unspecified, unspecified whether with hypoxia or hypercapnia; Q79.1 Other congenital malformations of diaphragm; I10 Essential (primary) hypertension; E11.8 Type 2 diabetes mellitus with unspecified complications | CPT/HCPCS: 99214 ==

== ENCOUNTER 2022-04-25 09:10 | Outpatient (CLI) | payer MEDICARE, MEDICAID, SELFPAY ==
--- NOTE | 2022-04-25 13:11 | PFTS_ITS ---
Date of Study:04/25/22 Date of Dictation: 04/28/2022 MECHANICS: Postbronchodilator forced vital capacity (FVC) is normal. Postbronchodilator forced expiratory volume in one second (FEV1) is moderately reduced 73%. FEV1/FVC is reduced. There is no significant response to bronchodilators. FLOW VOLUME LOOP: Scooping of end expiratory limb suggestive of airflow obstruction and smaller airways . LUNG VOLUMES: Total lung capacity (TLC) is normal. Residual volume (RV) is normal. DIFFUSING CAPACITY FOR CARBON MONOXIDE: Mildly reduced . INTERPRETATION: The spirometry consistent with moderate airflow obstruction. No significant response to bronchodilators. Flow volume loop consistent with small airway obstruction. Lung volumes are normal. There is mild gas transfer defect. Constellation of findings consistent with mild obstructive lung disease. Clinical correlation recommended. [facility]
== END 2022-04-25 09:11 | disposition home or self-care (01) ==
LOC: RT 09:12
PROVIDERS: PCP Family Medicine; Visit Provider Internal Medicine Critical Care Medicine
DX: J45.909 Unspecified asthma, uncomplicated (principal)
CPT/HCPCS: 94060; 94726; 94729; J7611

== ENCOUNTER → 2022-04-27 09:43 | Outpatient (BNVA) | payer MEDICARE, MEDICAID, SELFPAY | PROVIDERS: PCP Family Medicine; Visit Provider Specialist | DX: M17.0 Bilateral primary osteoarthritis of knee (principal); Z71.89 Other specified counseling | CPT/HCPCS: 20610; J7327 ==

== ENCOUNTER 2022-04-29 08:34 | Inpatient (IN) | payer MEDICARE, MEDICAID, SELFPAY ==
[2022-04-29] VITALS (9 sets, daily range): BP systolic 89–121; BP diastolic 48–68; PULSE 71–86; RESP 16–18; TEMP 36.7–37.4; O2SAT 90–97; BMI 40.1
--- NOTE | 2022-04-29 09:00 | ED_ITS ---
HPI - Skin/Abscess/Foreign Bdy General: Chief complaint: Skin/Abscess/Foreign Body Stated complaint: has a boil on her stomach that keeps getting worse Time Seen by Provider: 04/29/22 08:38 Source: patient Mode of arrival: ambulatory Limitations: no limitations History of Present Illness: 71-year-old female presents emergency room from her doctor's office. She has a swollen inflamed area on the abdomen just above the umbilicus to the right of the midline. She is on Humira and recently had an area that was itching on her abdomen she itches it a few times in the no day or 2 later she noticed a small abscess and infection developing there. She is seen by primary care doctor started on oral antibiotics and follow-up the infection has extended significantly across her abdomen all the way out to her flank she is running low-grade fever at home and has noticed she is somewhat tachycardic. MD complaint: abscess/boil Onset (ago): day(s) Tetanus up to date: yes Severity: moderate Quality: burning and aching Pain Consistency: constant Relieving factors: none Associated symptoms: Deny arthralgias, chills, cough, fever(s), itching, myalgias, nausea, rigidity, short of breath or vomiting Treatments prior to arrival: none Review of Systems Const: Denies: fever(s) or chills ENMT: Denies: throat pain, ear or mastoid pain, nasal discharge or nasal congestion Card: Denies: chest pain, edema, dyspnea on exertion or orthopnea Resp: Denies: dyspnea, productive cough or non-productive cough GI: Denies: nausea or vomiting : Denies: flank pain, difficulty voiding, dysuria, urinary frequency or urinary urgency Skin/Breast: Denies: rash or pruritus PFSH ED PFSH: Medical History Allergic rhinitis Anxiety Autoimmune disorder Conjunctivitis Coronary atherosclerosis CPAP (continuous positive airway pressure) dependence CVA (cerebral vascular accident) Diabetes mellitus Fibromyalgia Hypertension Hypoxemia Immunosuppression Medication monitoring encounter Osteoarthritis of knees, bilateral Osteoarthritis, hand Polyosteoarthritis, unspecified Recurrent falls Rotator cuff tear arthropathy of both shoulders Sinusitis Sjogren's disease Sjogrens syndrome Sleep apnea Surgical History H/O removal of cyst H/O rotator cuff surgery History of cholecystectomy Hx of knee surgery Hx of LASIK Hx of tubal ligation Family History Father Stroke CAD (coronary artery disease) Mother Parkinson disease Other Dementia Diabetes Thyroid disease Social History Smoking and tobacco status: never smoked Alcohol intake: never Lives independently: Yes Household members: spouse Housing: House Marital status: Number of children: 4 Current occupational status: retired and disabled History of recent travel: No Current gender identity: Female Physical Exam Const: COMMON NORMALS: no acute distress GENERAL APPEARANCE: cooperative and comfortable ORIENTATION/CONSCIOUSNESS: Yes awake, Yes oriented to person, Yes oriented to place and Yes oriented to time HENMT: COMMON NORMALS: normocephalic, atraumatic and hearing grossly normal bilaterally HEAD & SCALP: normocephalic and atraumatic Neck/C-Spine: COMMON NORMALS: no JVD Resp: COMMON NORMALS: normal respiratory effort, No retractions, No use of accessory muscles and clear to auscultation bilaterally AUSCULTATION: clear to auscultation bilaterally Cardio: COMMON NORMALS: no JVD, regular rate, regular rhythm and No murmurs present (Cardio) RATE: regular rate RHYTHM: regular rhythm GI: COMMON NORMALS: Soft to palpation and No hepatosplenomegaly present AUSCULTATION: Yes normoactive bowel sounds PALPATION: Yes Soft to palpation, No Tenderness to palpation present (GI), No Guarding due to palpation present (GI) and Yes No hepatosplenomegaly present Extremity: COMMON NORMALS: normal to inspection, capillary refill normal, no c lubbing, cyanosis or edema, no calf tenderness and no pedal edema Neuro: SENSORIUM/ORIENTATION: Yes oriented to person, Yes oriented to place and Yes oriented to time Skin: OTHER: Reddened inflamed mildly indurated abdominal cellulitis with a central small draining fistula 1 to 2 mm in diameter attempts to express any purulent drainage results and only serosanguineous fluid. It is significantly tender to the touch. Course Vital Signs: Vital signs: Vital Signs Temperature 97.9 F 05/03/22 11:52 Pulse Rate 78 05/03/22 11:52 Respiratory Rate 16 05/03/22 11:52 Blood Pressure 162/87 05/03/22 11:52 Pulse Oximetry 96 05/03/22 11:52 MDM - Skin/Abscess/Foreign Bdy Medicial Decision Making Progressive cellulitis failing outpatient antibiotics will admit discussed with hospitalist orders written Medical Records I reviewed the patient's medical records. Lab Data I reviewed the patient's lab results. : 05/03/22 04:01 05/03/22 04:01 Radiology Impressions Abdomen/Pelvis CT 04/29/22 09:11 IMPRESSION: 1. Subcutaneous edema in the ventral abdominal wall consistent with cellulitis. No sign of necrotizing infection. No fluid collection. 2. Incidental findings above. COMMENTS: Consistent with the [employer]'s Incidental Findings Committee white paper (J Am Dinesh Radiol 2017): For any incidental adrenal lesion greater than 1 cm but less than 4 cm classified in this report as benign, likely benign, or containing fat (including classification as an adenoma or myelolipoma), no follow-up imaging is recommended per consensus recommendations based on imaging criteria. Further lab evaluation could be pursued if warranted based on clinical findings. Abdomen Ultrasound 04/30/22 00:23 IMPRESSION: No abdominal wall abscess in the area of interest. Laboratory Results WBC 25.9 10^3/uL (4.0-10.0) H 04/29/22 09:00 RBC 3.85 10^6/uL (4.1-5.3) L 04/29/22 09:00 Hgb 11.0 g/dL (11.5-15.3) L 04/29/22 09:00 Hct 33.4 % (37.0-47.0) L 04/29/22 09:00 MCV 86.8 fl (81-99) 04/29/22 09:00 MCH 28.6 pg (28.0-34.0) 04/29/22 09:00 MCHC 32.9 g/dL (30.0-36.0) 04/29/22 09:00 RDW 13.2 % (12.1-15.1) 04/29/22 09:00 Plt Count 400 10^3/cmm (130-400) 04/29/22 09:00 MPV 9.8 fL (7.4-10.4) 04/29/22 09:00 Neut % (Auto) 87.8 % 04/29/22 09:00 Lymph % (Auto) 2.6 % 04/29/22 09:00 [place] % (Auto) 7.8 % 04/29/22 09:00 Eos % (Auto) 0.3 % 04/29/22 09:00 Baso % (Auto) 0.2 % 04/29/22 09:00 Neut # (Auto) 22.70 10^3/uL (1.8-7.7) H 04/29/22 09:00 Lymph # (Auto) 0.7 10^3/uL (0.8-4.8) L 04/29/22 09:00 [place] # (Auto) 2.0 10^3/uL (0.2-0.9) H 04/29/22 09:00 Eos # (Auto) 0.1 10^3/uL (0.0-0.8) 04/29/22 09:00 Baso # (Auto) 0.1 10^3/uL (0.0-0.1) 04/29/22 09:00 Nucleated RBC % (auto) 0 % 04/29/22 09:00 Nucleated RBCs # 0.0 /100WBC 04/29/22 09:00 Sodium 128 mmol/L (136-145) L 04/29/22 09:00 Potassium 4.6 mmol/L (3.5-5.1) 04/29/22 09:00 Chloride 92 mmol/L (98-107) L 04/29/22 09:00 Carbon Dioxide 17 mmol/L (22-29) L 04/29/22 09:00 Anion Gap 23.6 (5-19) H 04/29/22 09:00 BUN 14 mg/dL (8-23) 04/29/22 09:00 Creatinine 1.4 mg/dL (0.5-0.9) H 04/29/22 09:00 GFR Calculation 37.2 mL/min (90-130) L 04/29/22 09:00 Glucose 123 mg/dL (65-115) H 04/29/22 09:00 Estimat Average Glucose 120 04/29/22 09:00 Hemoglobin A1c 5.8 % (4.0-6.0) 04/29/22 09:00 Calculated Osmolality 268 mOsm/kg (285-295) L 04/29/22 09:00 Lactic Acid 4.3 mmol/L (0.5-2.2) H* 04/29/22 09:00 Calcium 9.3 mg/dL (8.5-10.5) 04/29/22 09:00 Total Bilirubin 0.2 mg/dL (0.15-1.2) 04/29/22 09:00 AST 14 U/L (0-32) 04/29/22 09:00 ALT 19 U/L (0-33) 04/29/22 09:00 Alkaline Phosphatase 135 IU/L (35-105) H 04/29/22 09:00 Total Protein 6.5 g/dL (6.6-8.7) L 04/29/22 09:00 Albumin 3.8 g/dL (3.5-5.2) 04/29/22 09:00 Globulin 2.7 g/dL (1.3-4.6) 04/29/22 09:00 Discharge Plan Discharge Patient Disposition: Admitted As Inpatient Admit Provider: Kristi Boucher Clinical Impression: Abscess of skin or subcutaneous tissue, Diabetes mellitus, Sjogrens syndrome Condition: Stable Discharge Diet: Cardiac Discharge Activity: Increase activity as tolerated Coding Level of Care Code ED [employer] Dean for Isac Torres
[2022-04-29 09:11] LABS: Basophils # 0.1 10^3/uL (0.0-0.1); Basophils % 0.2 %; Eosinophils # 0.1 10^3/uL (0.0-0.8); Eosinophils % 0.3 %; Hematocrit 33.4 % (37.0-47.0); Lymphocytes # 0.7 10^3/uL (0.8-4.8); Lymphocytes % 2.6 %; Mean Corpuscular HGB Conc 32.9 g/dL (30.0-36.0); Mean Corpuscular Hemoglobin 28.6 pg (28.0-34.0); Mean Corpuscular Volume 86.8 fl (81-99); Mean Platelet Volume 9.8 fL (7.4-10.4); Monocytes % 7.8 %; Neutrophils % 87.8 %; Nucleated Red Blood Cells % 0 %; Platelet Count 400 10^3/cmm (130-400); Red Blood Count 3.85 10^6/uL (4.1-5.3); Red Cell Distribution Width 13.2 % (12.1-15.1); White Blood Count 25.9 10^3/uL (4.0-10.0)
--- NOTE | 2022-04-29 09:11 | CTR_ITS ---
PROCEDURE INFORMATION: Exam: CT Abdomen And Pelvis Without Contrast Exam date and time: 04/29/2022 9:36 AM Age: 71 years old Clinical indication: Abdominal pain; Generalized; Prior surgery; Surgery date: 6+ months; Patient HX: Anterior abdominal wall cellulitis; Additional info: Abd wall cellulitis, abscess TECHNIQUE: Imaging protocol: Computed tomography of the abdomen and pelvis without contrast. Radiation optimization: All CT scans at this facility use at least one of these dose optimization techniques: automated exposure control; mA and/or kV adjustment per patient size (includes targeted exams where dose is matched to clinical indication); or iterative reconstruction. COMPARISON: CT abdomen pelvis w con* [id number] 09/13/2020 3:05 PM RADIATION DOSE METRICS: Total DLP (mGy-cm): 1892.9 FINDINGS: Lungs: There is subsegmental atelectasis in the right lung. Diaphragm: There is mild asymmetric elevation of the right hemidiaphragm. Liver: The liver is mildly enlarged. There is no focal liver abnormality. Gallbladder and bile ducts: The gallbladder is absent. There is moderate dilation of the common bile duct and central intrahepatic ducts. Pancreas: There is mild atrophy of the pancreas. Spleen: Splenic size is normal. There are scattered calcifications consistent with healed granulomas. Adrenal glands: Low-attenuation 16 mm left adrenal nodule consistent with a benign lipid rich adenoma. The right adrenal gland is unremarkable. Kidneys and ureters: The kidneys are unremarkable. No hydronephrosis or stones. No ureteral dilation. Stomach and bowel: The stomach is decompressed, preventing meaningful evaluation of wall thickness. The small bowel is nondilated. There is moderate sigmoid colonic diverticulosis without evidence of diverticulitis. Appendix: The appendix is normal. Intraperitoneal space: There is no free air or significant intraperitoneal free fluid. Vasculature: There is mild aortic atherosclerotic disease. Lymph nodes: There is no lymphadenopathy in the retroperitoneum, mesentery, pelvis or inguinal regions. Urinary bladder: The urinary bladder is unremarkable. Reproductive: The uterus is unremarkable. There is no adnexal mass or large cyst. Bones/joints: Intact anterior, posterior and interbody fusion at L4-5. The bony pelvis is intact. Soft tissues: There is extensive subcutaneous edema in the ventral abdominal wall. No fluid collection. No soft tissue gas. Small fat containing umbilical hernia. CT/CT abdomen pelvis wo con [id number] IMPRESSION: 1. Subcutaneous edema in the ventral abdominal wall consistent with cellulitis. No sign of necrotizing infection. No fluid collection. 2. Incidental findings above. COMMENTS: Consistent with the [employer]'s Incidental Findings Committee white paper (J Am Dinesh Radiol 2017): For any incidental adrenal lesion greater than 1 cm but less than 4 cm classified in this report as benign, likely benign, or containing fat (including classification as an adenoma or myelolipoma), no follow-up imaging is recommended per consensus recommendations based on imaging criteria. Further lab evaluation could be pursued if warranted based on clinical findings.
[2022-04-29] MEDS: sodium chloride 0.9% 1,000 ML 999 ML IV (09:23)
[2022-04-29] MEDS: vancomycin 1,000 MG in sodium chloride 0.9% 250 ML 250 MG IV (09:26)
[2022-04-29 09:27] LABS: Alanine Aminotransferase 19 U/L (0-33); Albumin Level 3.8 g/dL (3.5-5.2); Alkaline Phosphatase 135 IU/L (35-105); Anion Gap 23.6 (5-19); Aspartate Amino Transferase 14 U/L (0-32); Blood Urea Nitrogen 14 mg/dL (8-23); Calcium 9.3 mg/dL (8.5-10.5); Carbon Dioxide 17 mmol/L (22-29); Chloride 92 mmol/L (98-107); Globulin 2.7 g/dL (1.3-4.6); Glomerular Filtration Rate 37.2 mL/min (90-130); Glucose 123 mg/dL (65-115); Osmolality Calculated 268 mOsm/kg (285-295); Potassium 4.6 mmol/L (3.5-5.1); Sodium 128 mmol/L (136-145); Total Bilirubin 0.2 mg/dL (0.15-1.2); Total Protein 6.5 g/dL (6.6-8.7)
[2022-04-29 10:04] LABS: Lactic Sepsis W/Reflex 4.3 mmol/L (0.5-2.2)
[2022-04-29 11:10] LABS: Reflex Lactate Order REFLEX LACTIC ORDERD
--- NOTE | 2022-04-29 11:28 | P.HP_ITS ---
Providers/Chief Complaint Admitting Physician: Kristi Boucher MD Primary Care Provider: Pool Arriaga MD Chief Complaint: has a boil on her stomach that keeps getting worse History of Present Illness Sol Wall is a 71 year old female who has history of Sjogren's, rheumatoid arthritis, recently started using Humira, presented for worsening of cellulitis of her abdominal wall. Patient is stating that she picked her scab about 10 days ago and since then has been noticing that her redness of abdominal wall was getting worse, she did see Dr. Arriaga who prescribed her Bactrim, despite Bactrim her redness was getting worse, she did not notice any temperature however this morning she started vomiting. That prompted her visit to the ER. She has not noticed any insect bite or spiders at home. Her second dose of Humira was also 10 days ago. Severe leukocytosis, she is afebrile CT scan did not show abscess, subcutaneous edema no fluid collection no signs of necrotizing fasciitis She was given vancomycin, I added aztreonam and metronidazole she has penicillin allergy Will request ultrasound of abdominal wall to rule out abscess Patient is diabetic Lactic acid improved with IV fluid hydration SHe is afebrile She has been on steroids for quite some time 2 years recently started using Humira, last dose of steroids was a month ago Review of Systems Const: Reports: body aches Eyes: Denies: change in vision ENMT: Denies: throat pain Card: Denies: chest pain Resp: Denies: dyspnea GI: Reports: abdominal pain : Denies: flank pain Musc: Reports: joint pain and joint stiffness Skin/Breast: Reports: pruritus, erythema, skin tenderness and new lesions Neuro: Denies: headache(s) Psych: Denies: anxiety Endo: Denies: polyuria Prince/Lymph: Denies: easy bruising All/Imm: Denies: urticaria Medications/Allergies Home Medications Medication Instructions Recorded Confirmed Last Taken Type diltiazem HCl 240 mg capsule,24 240 mg PO QAM 11/24/19 04/29/22 04/29/22 History hr,extended release fluticasone fur. 100 mcg-umeclid 2 inh INHALATION Q24H 11/24/19 04/29/22 04/29/22 History 62.5 mcg-vilant 25 mcg inhalat.powder (Trelegy Ellipta) lisinopril 20 mg tablet 20 mg PO DAILY tab 11/24/19 04/29/22 04/29/22 History montelukast 10 mg tablet 10 mg PO DAILY tab 11/24/19 04/29/22 04/29/22 History oxycodone-acetaminophen 5 mg-325 1 tab PO Q4H PRN 11/24/19 04/29/22 04/29/22 History mg tablet spironolactone 25 mg tablet 25 mg PO DAILY tab 11/24/19 04/29/22 04/29/22 History cholecalciferol (vitamin D3) 25 25 mcg PO DAILY cap 12/08/19 04/29/22 04/29/22 History mcg (1,000 unit) capsule tramadol 50 mg tablet See Rx Instructions PO Q8H PRN 12/09/19 04/29/22 07/22/20 Rx #180 tab fluticasone propionate 50 2 spray INTRANASAL DAILY 05/25/20 04/29/22 04/29/22 History mcg/actuation nasal spray,suspension (Flonase Allergy Relief) omeprazole 20 mg capsule,delayed 20 mg PO DAILY #30 cap 06/28/20 04/29/22 04/29/22 Rx release biotin 1,000 mcg chewable tablet 1,000 mcg PO DAILY 07/22/20 04/29/22 04/29/22 History cyclobenzaprine 5 mg tablet 20 mg PO BID 07/22/20 04/29/22 04/29/22 History diphenhydramine HCl 25 mg capsule 25 mg PO Q6H PRN 07/22/20 04/29/22 Unknown History (Benadryl) folic acid 1 mg tablet 1 mg PO DAILY #90 tab 01/27/21 04/29/22 04/29/22 Rx metformin 500 mg tablet 1,000 mg PO DAILY tab 04/11/21 04/29/22 04/29/22 History levothyroxine 100 mcg capsule 112 mcg PO DAILY cap 08/05/21 04/29/22 04/29/22 History Plaquenil 200 mg tablet 200 mg PO BID #60 tab NS 01/17/22 04/29/22 04/29/22 Rx (hydroxychloroquine) adalimumab 40 mg/0.8 mL 40 mg (0.8 mL) SUBCUT Q14D #2 ea 03/09/22 04/29/22 04/26/22 Rx subcutaneous pen kit (Humira Pen) desvenlafaxine succinate 25 mg 25 mg PO DAILY 04/29/22 04/29/22 04/29/22 History tablet,extended release 24 hr diclofenac sodium 1 % topical gel 4 g TOPICAL QID PRN 04/29/22 04/29/22 Unknown History (Voltaren Arthritis Pain) gabapentin 800 mg tablet 800 mg PO BID 04/29/22 04/29/22 04/29/22 History sulfamethoxazole 800 2 tab PO BID 04/29/22 04/29/22 04/29/22 History mg-trimethoprim 160 mg tablet Allergies Allergy/AdvReac Type Severity Reaction Status Date / Time coconut oil Allergy Severe ALGY-Anaphy Verified 04/27/22 09:59 laxis Penicillins Allergy Severe ALGY-Rash Verified 04/27/22 09:59 prochlorperazine AdvReac Severe ADR-Halluci Verified 04/27/22 09:59 [From Compazine] nating PFSH Acute PFSH: Medical History Allergic rhinitis Anxiety Autoimmune disorder Conjunctivitis Coronary atherosclerosis CPAP (continuous positive airway pressure) dependence CVA (cerebral vascular accident) Diabetes mellitus Fibromyalgia Hypertension Hypoxemia Immunosuppression Medication monitoring encounter Osteoarthritis of knees, bilateral Osteoarthritis, hand Polyosteoarthritis, unspecified Recurrent falls Rotator cuff tear arthropathy of both shoulders Sinusitis Sjogren's disease Sjogrens syndrome Surgical History H/O removal of cyst H/O rotator cuff surgery History of cholecystectomy Hx of knee surgery Hx of LASIK Hx of tubal ligation Family History Father Stroke CAD (coronary artery disease) Mother Parkinson disease Other Dementia Diabetes Thyroid disease Social History Smoking and tobacco status: never smoked Alcohol intake: never Lives independently: Yes Household members: spouse Housing: House Marital status: Number of children: 4 Current occupational status: retired and disabled History of recent travel: No Current gender identity: Female Vitals/I&O/Wt Last Vital Signs Temp 99.4 F 04/29/22 08:47 Pulse 73 04/29/22 09:26 Resp 16 04/29/22 09:26 BP 95/64 04/29/22 09:26 Pulse Ox 97 04/29/22 09:26 04/28/22 04/29/22 04/29/22 22:59 06:59 14:59 Intake Total 4529.48 / 4529.48 Balance 4529.48 / 4529.48 Weight last 48 hrs Weight 109.316 kg Physical Exam Narrative: Pleasant cooperative female Morbid obese Diabetic S1, S2 Abdominal wall cellulitis, serosanguineous discharge from her wound I have demarcated the area No signs of edema of legs Patient is awake and alert Nonfocal neuro exam At home uses 3 L of oxygen EOMI, PERRLA is at the bedside S1, S2 Abdominal wall tender to palpate however abdomen itself is soft, no signs of peritonitis guarding or rigidity Data : 04/29/22 09:00 04/29/22 09:00 Micro: Microbiology 04/29/22 09:15 Blood Culture - Preliminary Blood SPECIMEN COLLECTED 04/29/22 09:00 Blood Culture - Preliminary Blood SPECIMEN COLLECTED A&P Assessment and plan (1) Sepsis: Status: Acute (2) Cellulitis: Status: Acute (3) MENG (acute kidney injury): Status: Acute (4) Sleep apnea: Status: Acute Qualifiers: Sleep apnea type: unspecified type Qualified Code(s): G47.30 - Sleep apnea, unspecified (5) Immunosuppression: Status: Acute Plan Sepsis secondary to abdominal wall cellulitis Failed outpatient Bactrim Lactic acid for improved with IV fluids Severe leukocytosis She is afebrile I will start vancomycin yesterday and metronidazole she has penicillin allergy We will do ultrasound of abdominal wall throughout our system however CT abdomen pelvis did not show localized fluid collection/abscess no signs of necrotizing fasciitis Secondary to high lactic acid I will keep her on normal saline maintenance rate MENG related to sepsis, use of Bactrim, anticipating provement with IV fluids Diabetic Consistent carb diet Continue on sliding scale Would use opioids as analgesia COPD without acute exacerbation she received use of oxygen, non-smoker, never smoked in her life, urine awaited COPD, DuoNeb every 4 as needed She is full code Anticipating stay in the hospital across more than 2 midnights Wound care: Dry dressing 4 x 4, ABD, chlorhexidine skin wash, dressing change twice a day Attestations Medical Necessity Statement*: Anticipating more than 2 midnights in the h [facility]spital for management sepsis related to cellulitis abdominal wall Time Spent in Patient Care: 40mins Coding Level of Care Code 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
[2022-04-29 12:08] LABS: Glucose Point of Care 95 mg/dL (70-110)
[2022-04-29 12:20] LABS: Estmated Average Glucose 120; Hemoglobin A1C 5.8 % (4.0-6.0)
[2022-04-29] MEDS: sodium chloride 0.9% 1,000 ML 75 ML IV (12:53)
[2022-04-29] MEDS: metroNIDAZOLE IV 500 MG/100 ML PREMIX 100 MG IV ×2 (12:53→20:52)
[2022-04-29 13:14] LABS: Lactic Acid level (Lactate) 1.8 mmol/L (0.5-2.2)
[2022-04-29] MEDS: aztreonam 1,000 MG in sodium chloride 0.9% (plus) 50 ML 100 MG IV (14:05)
[2022-04-29] MEDS: pantoprazole 40 mg SDV IVP (16:52)
[2022-04-29] MEDS: morphine IR 15 mg Tablet PO (17:03)
[2022-04-29 17:39] LABS: Glucose Point of Care 126 mg/dL (70-110)
[2022-04-29] MEDS: chlorhexidine gluconate 4% Btl 118 mL 1 APPLIC TOPICAL (17:52)
[2022-04-29 21:04] LABS: Glucose Point of Care 121 mg/dL (70-110)
[2022-04-30] VITALS (11 sets, daily range): BP systolic 108–151; BP diastolic 62–84; PULSE 79–93; RESP 12–18; TEMP 36.6–37.1; O2SAT 95–99
[2022-04-30] MEDS: aztreonam 1,000 MG in sodium chloride 0.9% (plus) 50 ML 100 MG IV ×2 (00:03→14:25)
--- NOTE | 2022-04-30 00:23 | US_ITS ---
WS: [id number] Limited abdomen ultrasound. HISTORY: Evaluate for abscess. Ultrasound is directed along the anterior abdominal wall. There is edema and soft tissue thickening. No focal fluid collection or abscess identified. US/US abdomen limited [id number] IMPRESSION: No abdominal wall abscess in the area of interest.
--- NOTE | 2022-04-30 01:34 | PC.NURSE ---
Performed dressing change to medial abdomen as ordered. No increase of induration observed. Area is red, warm and tender to touch. Patient does have moderate amount of clear drainage from small open area to central abdomen. No foul odor detected. Patient tolerated well.
[2022-04-30] MEDS: sodium chloride 0.9% 1,000 ML 75 ML IV ×2 (03:13→20:50)
[2022-04-30] MEDS: metroNIDAZOLE IV 500 MG/100 ML PREMIX 100 MG IV ×3 (03:13→20:50)
[2022-04-30] MEDS: dilTIAZem ER (24HR) 240 mg Capsule PO (04:49)
[2022-04-30 04:57] LABS: Basophils % 0.2 %; Eosinophils # 0.4 10^3/uL (0.0-0.8); Eosinophils % 2.1 %; Hematocrit 29.1 % (37.0-47.0); Hemoglobin 9.5 g/dL (11.5-15.3); Lymphocytes # 1.7 10^3/uL (0.8-4.8); Lymphocytes % 8.9 %; Mean Corpuscular HGB Conc 32.6 g/dL (30.0-36.0); Mean Corpuscular Hemoglobin 28.8 pg (28.0-34.0); Mean Corpuscular Volume 88.2 fl (81-99); Mean Platelet Volume 9.8 fL (7.4-10.4); Monocytes % 5.4 %; Neutrophils # 15.98 10^3/uL (1.8-7.7); Neutrophils % 82.6 %; Nucleated Red Blood Cells % 0 %; Platelet Count 342 10^3/cmm (130-400); Red Cell Distribution Width 13.2 % (12.1-15.1); White Blood Count 19.4 10^3/uL (4.0-10.0)
[2022-04-30 05:18] LABS: Magnesium 1.7 mg/dL (1.7-2.3)
[2022-04-30 05:19] LABS: Anion Gap 15.3 (5-19); Blood Urea Nitrogen 12 mg/dL (8-23); Calcium 8.8 mg/dL (8.5-10.5); Carbon Dioxide 17 mmol/L (22-29); Chloride 101 mmol/L (98-107); Glomerular Filtration Rate 49.1 mL/min (90-130); Glucose 89 mg/dL (65-115); Osmolality Calculated 267 mOsm/kg (285-295); Potassium 4.3 mmol/L (3.5-5.1); Sodium 129 mmol/L (136-145)
[2022-04-30 06:50] LABS: Glucose Point of Care 105 mg/dL (70-110)
[2022-04-30] MEDS: levothyroxine 112 mcg Tablet PO (08:07)
[2022-04-30] MEDS: pantoprazole 40 mg SDV IVP ×2 (08:07→18:13)
[2022-04-30] MEDS: ondansetron 2 mg/ML SDV 2 mL 4 MG IVP (08:07)
[2022-04-30] MEDS: vancomycin 1,250 MG/250 ML PIGGYBACK 200 MG IV (09:12)
[2022-04-30 11:43] LABS: Glucose Point of Care 122 mg/dL (70-110)
--- NOTE | 2022-04-30 13:07 | PM.PN ---
Subjective Subjective: Leukocytosis trending down, afebrile, requested culture from her wound today Cultures negative to date Patient is endorsing feeling better, I have requested nurse to change her dressing today her dressing was soaked with serosanguineous to purulent discharge Ultrasound report is pending Vitals/I&O/Wt Last Vital Signs Temp 98.4 F 04/30/22 12:00 Pulse 88 04/30/22 12:00 Resp 16 04/30/22 12:00 BP 142/84 04/30/22 12:00 Pulse Ox 98 04/30/22 12:00 04/29/22 04/30/22 04/30/22 22:59 06:59 14:59 Intake Total 510 / 5379.48 1150 / 6529.48 490 / 490 Balance 510 / 5379.48 1150 / 6529.48 490 / 490 Weight last 48 hrs Weight 109.316 kg Physical Exam Narrative: Pleasant cooperative female, laying supine Currently on 3 L nasal cannula S1, S2 Abdomen soft, no signs of guarding rigidity, Erythema seems to be getting better, No lower extremity edema EOMI, PERRLA Nonfocal neuro exam Data : 04/30/22 04:30 04/30/22 04:30 Micro: Microbiology 04/29/22 09:15 Blood Culture - Preliminary Blood NEGATIVE TO DATE 04/29/22 09:00 Blood Culture - Preliminary Blood NEGATIVE TO DATE A&P Assessment and plan (1) MENG (acute kidney injury): Status: Acute (2) Cellulitis: Status: Acute (3) Sepsis: Status: Acute (4) Sleep apnea: Status: Acute Qualifiers: Sleep apnea type: unspecified type Qualified Code(s): G47.30 - Sleep apnea, unspecified Plan Purulent cellulitis of abdominal wall No signs of necrotizing fasciitis or abscess on CT scan Ultrasound report is pending Clinically she is doing better I would continue her triple antibiotics I would like to give her 48 hours to see final blood culture report She will need outpatient wound care clinic follow-up MENG related to dehydration: Improving with IV fluids Type 2 diabetes euglycemic Consistent carb diet with sliding scale She is full code DVT prophylaxis on board Attestations Medical Necessity Statement*: She will stay here in the hospital for management of purulent cellulitis might be able to go home on Sunday Time Spent in Patient Care: 30 Coding Level of Care Code Acute 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
[2022-04-30 17:34] LABS: Glucose Point of Care 114 mg/dL (70-110)
[2022-04-30 21:15] LABS: Glucose Point of Care 97 mg/dL (70-110)
[2022-05-01] VITALS (12 sets, daily range): BP systolic 124–149; BP diastolic 73–85; PULSE 80–94; RESP 12–20; TEMP 36.4–37.1; O2SAT 95–99
[2022-05-01] MEDS: aztreonam 1,000 MG in sodium chloride 0.9% (plus) 50 ML 100 MG IV ×2 (01:36→13:40)
[2022-05-01] MEDS: ondansetron 2 mg/ML SDV 2 mL 4 MG IVP (02:42)
[2022-05-01] MEDS: diphenhydrAMINE 25 mg Capsule PO (02:45)
[2022-05-01] MEDS: morphine IR 15 mg Tablet PO ×3 (04:50→19:23)
[2022-05-01 05:29] LABS: Basophils % 0.3 %; Eosinophils # 0.2 10^3/uL (0.0-0.8); Eosinophils % 1.5 %; Hematocrit 31.5 % (37.0-47.0); Hemoglobin 10.2 g/dL (11.5-15.3); Lymphocytes # 1.3 10^3/uL (0.8-4.8); Lymphocytes % 8.5 %; Mean Corpuscular HGB Conc 32.4 g/dL (30.0-36.0); Mean Corpuscular Hemoglobin 28.4 pg (28.0-34.0); Mean Corpuscular Volume 87.7 fl (81-99); Mean Platelet Volume 9.9 fL (7.4-10.4); Monocytes # 1.2 10^3/uL (0.2-0.9); Monocytes % 8.1 %; Neutrophils # 12.16 10^3/uL (1.8-7.7); Neutrophils % 80.1 %; Nucleated Red Blood Cells % 0 %; Platelet Count 414 10^3/cmm (130-400); Red Blood Count 3.59 10^6/uL (4.1-5.3); Red Cell Distribution Width 13.2 % (12.1-15.1); White Blood Count 15.1 10^3/uL (4.0-10.0)
[2022-05-01 05:41] LABS: Anion Gap 18.1 (5-19); Blood Urea Nitrogen 8 mg/dL (8-23); Calcium 9.2 mg/dL (8.5-10.5); Carbon Dioxide 19 mmol/L (22-29); Chloride 98 mmol/L (98-107); Glucose 86 mg/dL (65-115); Osmolality Calculated 270 mOsm/kg (285-295); Potassium 4.1 mmol/L (3.5-5.1); Sodium 131 mmol/L (136-145)
[2022-05-01] MEDS: metroNIDAZOLE IV 500 MG/100 ML PREMIX 100 MG IV ×3 (06:07→19:23)
[2022-05-01] MEDS: dilTIAZem ER (24HR) 240 mg Capsule PO (06:07)
[2022-05-01 06:26] LABS: Glucose Point of Care 96 mg/dL (70-110)
[2022-05-01] MEDS: vancomycin 1,250 MG/250 ML PIGGYBACK 200 MG IV (09:35)
[2022-05-01] MEDS: levothyroxine 112 mcg Tablet PO (09:36)
[2022-05-01] MEDS: pantoprazole 40 mg SDV IVP ×2 (09:36→17:23)
[2022-05-01] MEDS: sodium chloride 0.9% 1,000 ML 75 ML IV (09:37)
[2022-05-01] MEDS: chlorhexidine gluconate 4% Btl 118 mL 1 APPLIC TOPICAL ×2 (09:46→17:23)
[2022-05-01 10:25] LABS: Bacillus cereus group Not Detected (NOT DETECT); Bacillus subtillis group Not Detected (NOT DETECT); Corynebacterium Not Detected (NOT DETECT); Cutibacterium acnes (P.acnes) Not Detected (NOT DETECT); Enterococcus Not Detected (NOT DETECT); Enterococcus faecalis Not Detected (NOT DETECT); Enterococcus faecium Not Detected (NOT DETECT); Lactobacillus species Not Detected (NOT DETECT); Listeria Not Detected (NOT DETECT); Listeria monocytogenes Not Detected (NOT DETECT); Micrococcus Not Detected (NOT DETECT); Pan Candida Not Detected (NOT DETECT); Pan Gram-Negative Not Detected (NOT DETECT); Staphylococcus epidermidis Detected (NOT DETECT); Staphylococcus lugdunensis Not Detected (NOT DETECT); Staphylococcus species Detected (NOT DETECT); Streptococcus agalactiae Not Detected (NOT DETECT); Streptococcus anginosus group Not Detected (NOT DETECT); Streptococcus pneumoniae Not Detected (NOT DETECT); Streptococcus pyogenes Not Detected (NOT DETECT); Streptococcus species Not Detected (NOT DETECT); mecA Detected (NOT DETECT); mecC Not Detected (NOT DETECT)
[2022-05-01 11:10] LABS: Glucose Point of Care 89 mg/dL (70-110)
--- NOTE | 2022-05-01 11:49 | P.PN_ITS ---
Subjective Subjective: This morning patient is endorsing feeling better, her blood sugar is within normal range, I asked nurse to change her dressing Drainage from wound has decreased No signs of abscess formation as per the ultrasound and CT scan Continue IV antibiotics for 1 more day, de-escalate to p.o. antibiotics if her white count is improving by tomorrow Vitals/I&O/Wt Last Vital Signs Temp 98.0 F 05/01/22 08:00 Pulse 81 05/01/22 09:12 Resp 16 05/01/22 09:12 BP 147/73 05/01/22 08:00 Pulse Ox 98 05/01/22 09:12 04/30/22 05/01/22 05/01/22 22:59 06:59 14:59 Intake Total 1250 / 1740 50 / 1790 1538.75 / 1538.75 Balance 1250 / 1740 50 / 1790 1538.75 / 1538.75 Physical Exam Narrative: Patient is laying supine S1, S2 Very comfortable and cooperative Nonfocal neuro exam Saturating well on 2 L nasal cannula Visceral obesity, abdomen is soft no signs of guarding rigidity or peritonitis, redness is improving, erythema noticed on right side of her wound otherwise it shows signs of improvement Dressing is slightly soaked with serosanguineous discharge Lower extremity no edema Data : 05/01/22 04:32 05/01/22 04:32 Micro: Microbiology 04/30/22 11:00 Gram Stain - Final Abdomen Wound Culture - Preliminary Staphylococcus species 04/29/22 09:15 Blood Culture - Preliminary Blood Staphylococcus epidermidis 04/29/22 09:00 Blood Culture - Preliminary Blood NEGATIVE TO DATE A&P Assessment and plan (1) MENG (acute kidney injury): Status: Acute (2) Cellulitis: Status: Acute (3) Sepsis: Status: Acute Plan Purulent cellulitis of abdominal wall No signs of localized pus collection or abscess No need of drainage at this point Continue IV antibiotics I will plan to de-escalate antibiotics to p.o. 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
[2022-05-01 17:06] LABS: Glucose Point of Care 89 mg/dL (70-110)
[2022-05-01 21:54] LABS: Glucose Point of Care 82 mg/dL (70-110)
[2022-05-02] VITALS (8 sets, daily range): BP systolic 142–184; BP diastolic 77–87; PULSE 79–94; RESP 16–18; TEMP 36.4–36.9; O2SAT 97–99
[2022-05-02] MEDS: aztreonam 1,000 MG in sodium chloride 0.9% (plus) 50 ML 100 MG IV (01:15)
[2022-05-02] MEDS: metroNIDAZOLE IV 500 MG/100 ML PREMIX 100 MG IV (04:44)
[2022-05-02] MEDS: ondansetron 2 mg/ML SDV 2 mL 4 MG IVP (04:44)
--- NOTE | 2022-05-02 04:53 | PC.NURSE ---
Patient stated that she felt dizzy and nausea after getting up to bathroom. Patient states dizziness went away when laying back down, but still nausea. PRN Zofran given. Vital signs and blood sugar checked and all WNL.
[2022-05-02 04:58] LABS: Glucose Point of Care 80 mg/dL (70-110)
[2022-05-02] MEDS: dilTIAZem ER (24HR) 240 mg Capsule PO (04:58)
[2022-05-02 06:08] LABS: Basophils # 0.1 10^3/uL (0.0-0.1); Basophils % 0.7 %; Eosinophils # 0.4 10^3/uL (0.0-0.8); Eosinophils % 3.8 %; Hematocrit 33.7 % (37.0-47.0); Hemoglobin 11.2 g/dL (11.5-15.3); Lymphocytes # 2.1 10^3/uL (0.8-4.8); Mean Corpuscular HGB Conc 33.2 g/dL (30.0-36.0); Mean Corpuscular Hemoglobin 28.8 pg (28.0-34.0); Mean Corpuscular Volume 86.6 fl (81-99); Mean Platelet Volume 9.8 fL (7.4-10.4); Monocytes # 1.2 10^3/uL (0.2-0.9); Monocytes % 10.9 %; Neutrophils # 6.69 10^3/uL (1.8-7.7); Neutrophils % 61.3 %; Nucleated Red Blood Cells % 0 %; Platelet Count 475 10^3/cmm (130-400); Red Blood Count 3.89 10^6/uL (4.1-5.3); Red Cell Distribution Width 13.2 % (12.1-15.1); White Blood Count 10.9 10^3/uL (4.0-10.0)
[2022-05-02 06:31] LABS: Anion Gap 19.7 (5-19); Blood Urea Nitrogen 6 mg/dL (8-23); Calcium 9.5 mg/dL (8.5-10.5); Carbon Dioxide 20 mmol/L (22-29); Chloride 95 mmol/L (98-107); Glucose 75 mg/dL (65-115); Osmolality Calculated 268 mOsm/kg (285-295); Potassium 3.7 mmol/L (3.5-5.1); Sodium 131 mmol/L (136-145)
[2022-05-02 06:40] LABS: Glucose Point of Care 72 mg/dL (70-110)
--- NOTE | 2022-05-02 06:54 | PC.NURSE ---
Dr. Boucher notified of patient stating she doesn't feel right. Patient c/o nausea and dizziness. BG 72, juice provided. VSS.
[2022-05-02] MEDS: chlorhexidine gluconate 4% Btl 118 mL 1 APPLIC TOPICAL ×2 (09:40→18:06)
[2022-05-02] MEDS: levothyroxine 112 mcg Tablet PO (09:40)
[2022-05-02] MEDS: pantoprazole 40 mg SDV IVP (09:40)
[2022-05-02] MEDS: vancomycin 1,250 MG/250 ML PIGGYBACK 200 MG IV (09:45)
[2022-05-02 11:09] LABS: Glucose Point of Care 85 mg/dL (70-110)
--- NOTE | 2022-05-02 12:09 | P.PN_ITS ---
Subjective Subjective: Patient is endorsing feeling better, she wants to go home, This morning her dressing was soaked with serosanguineous discharge Her redness is improving I will switch her IV antibiotics to p.o. Plan to discharge tomorrow if clinically better Low sugar this morning, improved after a juice was given Hemoglobin A1c is 5.8, she is not diabetic Vitals/I&O/Wt Last Vital Signs Temp 98.3 F 05/02/22 11:31 Pulse 84 05/02/22 11:31 Resp 17 05/02/22 11:31 BP 142/81 05/02/22 11:31 Pulse Ox 98 05/02/22 11:31 05/01/22 05/02/22 05/02/22 22:59 06:59 14:59 Intake Total 370 / 2496.25 150 / 2646.25 480 / 480 Output Total 4 / 4 Balance 366 / 2492.25 150 / 2642.25 480 / 480 Physical Exam Narrative: Patient is laying flat Her dressing was soaked with serosanguineous discharge, asked nurse to change dressing Erythema around the wound is improving It is looking much better as compared to yesterday Abdomen is soft Awake and alert Saturating well on 3 L nasal cannula Looks euvolemic Data : 05/02/22 04:45 05/02/22 04:45 Micro: Microbiology 04/30/22 11:00 Gram Stain - Final Abdomen Anaerobic Culture - Preliminary Wound Culture - Final Staphylococcus aureus 04/29/22 09:15 Blood Culture - Preliminary Blood Staphylococcus epidermidis A&P Assessment and plan (1) MENG (acute kidney injury): Status: Acute (2) Cellulitis: Status: Acute (3) Sepsis: Status: Acute Plan Sepsis: Resolved Purulent cellulitis of abdominal wall Improving De-escalate antibiotics to clindamycin and doxycycline Plan to discharge her tomorrow No signs of abscess Hyperglycemia: Hemoglobin A1c is 5.8, does not need long-term insulin Plan to discharge her tomorrow She is afebrile Leukocytosis trending down Continue regular diet, discontinue consistent carb diet Topical chlorhexidine for staff aureus from wound Attestations Medical Necessity Statement*: Discharge tomorrow Time Spent in Patient Care: 30 Coding Level of Care Code 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
[2022-05-02] MEDS: clindamycin 150 mg Capsule 300 MG PO ×2 (13:44→21:04)
[2022-05-02 17:03] LABS: Glucose Point of Care 81 mg/dL (70-110)
--- NOTE | 2022-05-02 17:10 | PC.SOCIAL ---
IMM Update pg 2 of IMM updated and reviewed w/ patient. Copy provided and Copy placed in chart.
[2022-05-02] MEDS: doxycycline 100 mg Tablet PO (18:06)
--- NOTE | 2022-05-02 19:56 | PC.NURSE ---
Patient's oxygen changed to Cpap for bedtime per patient request
[2022-05-02 20:38] LABS: Glucose Point of Care 113 mg/dL (70-110)
[2022-05-02] MEDS: diphenhydrAMINE 25 mg Capsule PO (21:04)
[2022-05-03] VITALS: BP 169/91; PULSE 74; RESP 16; TEMP 36.6; O2SAT 100
[2022-05-03] MEDS: clindamycin 150 mg Capsule 300 MG PO ×2 (01:48→08:08)
[2022-05-03 04:00] VITALS: BP 168/83; PULSE 84; RESP 16; TEMP 36.6; O2SAT 100
[2022-05-03 05:14] LABS: Basophils % 0.3 %; Eosinophils # 0.3 10^3/uL (0.0-0.8); Eosinophils % 3.3 %; Hematocrit 32.9 % (37.0-47.0); Hemoglobin 11.5 g/dL (11.5-15.3); Lymphocytes # 1.8 10^3/uL (0.8-4.8); Lymphocytes % 18.4 %; Mean Corpuscular Hemoglobin 28.8 pg (28.0-34.0); Mean Corpuscular Volume 82.3 fl (81-99); Mean Platelet Volume 9.7 fL (7.4-10.4); Monocytes # 1.3 10^3/uL (0.2-0.9); Monocytes % 12.6 %; Neutrophils # 5.67 10^3/uL (1.8-7.7); Neutrophils % 56.8 %; Nucleated Red Blood Cells % 0 %; Platelet Count 485 10^3/cmm (130-400); Red Cell Distribution Width 12.7 % (12.1-15.1)
[2022-05-03] MEDS: dilTIAZem ER (24HR) 240 mg Capsule PO (05:23)
[2022-05-03 05:48] LABS: Anion Gap 16.7 (5-19); Blood Urea Nitrogen 8 mg/dL (8-23); Calcium 9.1 mg/dL (8.5-10.5); Carbon Dioxide 22 mmol/L (22-29); Chloride 92 mmol/L (98-107); Glucose 88 mg/dL (65-115); Osmolality Calculated 262 mOsm/kg (285-295); Potassium 3.7 mmol/L (3.5-5.1); Sodium 127 mmol/L (136-145)
[2022-05-03 06:10] LABS: Glucose Point of Care 85 mg/dL (70-110)
[2022-05-03 06:37] LABS: Slide Review Slide Review Perform
[2022-05-03 07:33] VITALS: BP 162/87; PULSE 77; RESP 18; TEMP 36.6; O2SAT 98
[2022-05-03] MEDS: acetaminophen 500 mg Tablet PO (08:07)
[2022-05-03] MEDS: pantoprazole DR 40 mg Tablet PO (08:08)
[2022-05-03] MEDS: chlorhexidine gluconate 4% Btl 118 mL 1 APPLIC TOPICAL (08:08)
[2022-05-03] MEDS: levothyroxine 112 mcg Tablet PO (08:08)
[2022-05-03] MEDS: doxycycline 100 mg Tablet PO (08:08)
[2022-05-03 10:44] VITALS: PULSE 78; RESP 16; O2SAT 96
[2022-05-03 11:06] LABS: Glucose Point of Care 112 mg/dL (70-110)
--- NOTE | 2022-05-03 11:44 | P.DS_ITS ---
Discharge Providers Date of Admission: 04/29/22 10:04 Date of Discharge: May 03, 2022 Attending Provider at Admission: Kristi Boucher MD Attending Provider at Discharge: Kristi Boucher MD Primary Care Provider: Pool Arriaga MD Diagnoses at Discharge Discharge Diagnosis (1) MENG (acute kidney injury): Status: Acute (2) Cellulitis: Status: Acute (3) Sepsis: Status: Acute Reason for Visit Reason for Visit: has a boil on her stomach that keeps getting worse Hospital Course Hospital Course Patient was admitted for management and evaluation of purulent cellulitis of abdominal wall. There were no signs of abdominal abscess on ultrasound and CT abdomen pelvis. She was treated with broad-spectrum antibiotics. Wound culture did show MRSA however blood cultures were positive for contamination with staph epidermidis. She remained afebrile, her leukocytosis improved gradually. Her hemoglobin A1c is 5.8 and she does not need metformin at the time of discharge. I will give her clindamycin 7-day course and wound care follow-up. I do not think her cellulitis is associated with Humira. My concern is related to steroid related thinning of her skin and she probably picked a scab that got infected. Redness around her wound has significantly improved. No localized pus collection. I have counseled patient that she will notice a lot of serosanguineous discharge until the whole redness/erythema has improved. She will do dressing change 3 times a day at home after chlorhexidine wash topically. Her MENG improved with IV fluid hydration. Sepsis related to purulent cellulitis of abdominal wall: Improved with broad- spectrum antibiotics, she did require limited fluid resuscitation at the time of admission with significant improvement. Because of significant improvement with limited fluid resuscitation aggressive septic boluses were avoided. Physical Exam Narrative: Pleasant cooperative female, laying supine Currently on 3 L nasal cannula S1, S2 Abdomen soft, no signs of guarding rigidity, Erythema seems to be getting better, redness has improved significantly, dressing was soaked with serosanguineous discharge No lower extremity edema EOMI, PERRLA Nonfocal neuro exam Discharge Data Studies Completed and Pending Completed Studies During Hospitalization Category Date Time Status CT abdomen pelvis wo con [id number] Stat Cat Scan 04/29/22 09:11 Completed US abdomen limited [id number] Routine Ultrasound 04/30/22 00:23 Completed Pending at discharge Category Date Time Status Anaerobic Culture Routine Lab 04/30/22 11:00 Results Blood Culture Stat Lab 04/29/22 09:15 Results Wound Culture and Gram Stain Routine Lab 04/30/22 11:00 Results Radiology Impressions Abdomen/Pelvis CT 04/29/22 09:11 IMPRESSION: 1. Subcutaneous edema in the ventral abdominal wall consistent with cellulitis. No sign of necrotizing infection. No fluid collection. 2. Incidental findings above. COMMENTS: Consistent with the [employer]'s Incidental Findings Committee white paper (J Am Dinesh Radiol 2017): For any incidental adrenal lesion greater than 1 cm but less than 4 cm classified in this report as benign, likely benign, or containing fat (including classification as an adenoma or myelolipoma), no follow-up imaging is recommended per consensus recommendations based on imaging criteria. Further lab evaluation could be pursued if warranted based on clinical findings. Abdomen Ultrasound 04/30/22 00:23 IMPRESSION: No abdominal wall abscess in the area of interest. Laboratory Results WBC 10.0 10^3/uL (4.0-10.0) 05/03/22 04:01 RBC 4.00 10^6/uL (4.1-5.3) L 05/03/22 04:01 Hgb 11.5 g/dL (11.5-15.3) 05/03/22 04:01 Hct 32.9 % (37.0-47.0) L 05/03/22 04:01 MCV 82.3 fl (81-99) 05/03/22 04:01 MCH 28.8 pg (28.0-34.0) 05/03/22 04:01 MCHC 35.0 g/dL (30.0-36.0) D 05/03/22 04:01 RDW 12.7 % (12.1-15.1) 05/03/22 04:01 Plt Count 485 10^3/cmm (130-400) H 05/03/22 04:01 MPV 9.7 fL (7.4-10.4) 05/03/22 04:01 Neut % (Auto) 56.8 % 05/03/22 04:01 Lymph % (Auto) 18.4 % 05/03/22 04:01 Dickens % (Auto) 12.6 % 05/03/22 04:01 Eos % (Auto) 3.3 % 05/03/22 04:01 Baso % (Auto) 0.3 % 05/03/22 04:01 Neut # (Auto) 5.67 10^3/uL (1.8-7.7) 05/03/22 04:01 Lymph # (Auto) 1.8 10^3/uL (0.8-4.8) 05/03/22 04:01 Dickens # (Auto) 1.3 10^3/uL (0.2-0.9) H 05/03/22 04:01 Eos # (Auto) 0.3 10^3/uL (0.0-0.8) 05/03/22 04:01 Baso # (Auto) 0.0 10^3/uL (0.0-0.1) 05/03/22 04:01 Nucleated RBC % (auto) 0 % 05/03/22 04:01 Nucleated RBCs # 0.0 /100WBC 05/03/22 04:01 Sodium 127 mmol/L (136-145) L 05/03/22 04:01 Potassium 3.7 mmol/L (3.5-5.1) 05/03/22 04:01 Chloride 92 mmol/L (98-107) L 05/03/22 04:01 Carbon Dioxide 22 mmol/L (22-29) 05/03/22 04:01 Anion Gap 16.7 (5-19) 05/03/22 04:01 BUN 8 mg/dL (8-23) 05/03/22 04:01 Creatinine 0.5 mg/dL (0.5-0.9) 05/03/22 04:01 GFR Calculation 122.0 mL/min (90-130) 05/03/22 04:01 Glucose 88 mg/dL (65-115) 05/03/22 04:01 POC Glucose 112 mg/dL (70-110) H 05/03/22 10:50 Estimat Average Glucose 120 04/29/22 09:00 Hemoglobin A1c 5.8 % (4.0-6.0) 04/29/22 09:00 Calculated Osmolality 262 mOsm/kg (285-295) L 05/03/22 04:01 Lactic Acid 4.3 mmol/L (0.5-2.2) H* 04/29/22 09:00 Lactic Acid (Sepsis) 1.8 mmol/L (0.5-2.2) 04/29/22 12:30 Lactate 1.0 mmol/L (0.5-2.2) 04/30/22 04:30 Calcium 9.1 mg/dL (8.5-10.5) 05/03/22 04:01 Magnesium 1.7 mg/dL (1.7-2.3) 04/30/22 04:30 Total Bilirubin 0.2 mg/dL (0.15-1.2) 04/29/22 09:00 AST 14 U/L (0-32) 04/29/22 09:00 ALT 19 U/L (0-33) 04/29/22 09:00 Alkaline Phosphatase 135 IU/L (35-105) H 04/29/22 09:00 C-Reactive Protein 278.0 mg/L (0.0-4.9) H 04/30/22 04:30 Total Protein 6.5 g/dL (6.6-8.7) L 04/29/22 09:00 Albumin 3.8 g/dL (3.5-5.2) 04/29/22 09:00 Globulin 2.7 g/dL (1.3-4.6) 04/29/22 09:00 Vitals Last Vital Signs Temp 97.9 F 05/03/22 07:33 Pulse 78 05/03/22 10:44 Resp 16 05/03/22 10:44 BP 162/87 05/03/22 07:33 Pulse Ox 96 05/03/22 10:44 Discharge Plan Discharge Patient Disposition: Home Condition: Stable Prescriptions: New chlorhexidine gluconate [Antiseptic Skin Clnsr(chlorhe)] 4 % liquid 1 applic topical Q5M Qty: 473 0RF clindamycin HCl 300 mg capsule 300 mg PO Q6H 7 Days Qty: 28 0RF Continued cholecalciferol (vitamin D3) 1,000 unit capsule 25 mcg PO DAILY 0RF fluticasone propionate [Flonase Allergy Relief] 50 mcg/actuation spray,suspension 2 spray INTRANASAL DAILY 0RF Rx Instructions: administer into each nostril tramadol 50 mg tablet See Rx Instructions PO Q8H PRN (Reason: pain) Qty: 180 2RF Rx Instructions: one to two tablets PO every 8 hours PRN; levothyroxine 100 mcg capsule 112 mcg PO DAILY 0RF Label Comments: S,, oxycodone-acetaminophen 5-325 mg tablet 1 tab PO Q4H PRN (Reason: Pain, Severe) 0RF Trelegy Ellipta 100-62.5-25 mcg blister with device 2 inh INHALATION Q24H 0RF spironolactone 25 mg tablet 25 mg PO DAILY 0RF lisinopril 20 mg tablet 20 mg PO DAILY 0RF diltiazem HCl 240 mg capsule,extended release 24 hr 240 mg PO QAM 0RF montelukast 10 mg tablet 10 mg PO DAILY 0RF folic acid 1 mg tablet 1 mg PO DAILY Qty: 90 1RF omeprazole 20 mg capsule,delayed release(DR/EC) 20 mg PO DAILY Qty: 30 2RF hydroxychloroquine [Plaquenil] 200 mg tablet 200 mg PO BID Qty: 60 2RF Humira Pen 40 mg/0.8 mL pen injector kit 40 mg SUBCUT Q14D Qty: 2 5RF diphenhydramine HCl [Benadryl] 25 mg Capsule 25 mg PO Q6H PRN (Reason: Allergy Symptoms) 0RF biotin 1,000 mcg Tablet,Chewable 1,000 mcg PO DAILY 0RF cyclobenzaprine 5 mg tablet 20 mg PO BID 0RF gabapentin 800 mg tablet 800 mg PO BID 0RF Voltaren Arthritis Pain 1 % gel 4 g topical QID PRN (Reason: Pain) 0RF Rx Instructions: apply to single knee, ankle, foot; for foot includes sole/toes/top of foot desvenlafaxine succinate 25 mg Tablet Extended Release 24 Hr 25 mg PO DAILY 0RF Discontinued metformin 500 mg tablet 1,000 mg PO DAILY 0RF sulfamethoxazole-trimethoprim 800-160 mg tablet 2 tab PO BID 0RF Discharge Orders: Discharge Order (Routine); Ordered 05/03/22 Ordered By: Kristi Boucher Other Ambulatory Orders: DME: Miscellaneous (Order) Location: None Selected Ordered By: Kristi Boucher Referrals: Pool Arriaga MD [Primary Care Provider] - 2 weeks [facility]OUND [facility]ARE [facility], [Staff Physician] - 4-7 days Discharge Diet: Cardiac Discharge Activity: Increase activity as tolerated Patient Instructions: Opioid Safety Activity Restrictions/Additional Instructions: dry wound dressing, you can change every 8 hours, apply topical chlorhexidine finish 7 days of antibiotics and follow-up with wound care clinic Since your blood sugar is running low I have stopped your metformin Do not take Bactrim, I am giving you clindamycin 7-day course Discharge Attestations Time Spent in Discharge Care*: less than 30 min Quality Metrics Clinical Quality Measures [ No reported AMI, CVA or VTE this stay] Coding Level of Care Code Acute Chg FW DC note Diagnoses MENG (acute kidney injury) N17.9 Cellulitis L03.90 Sepsis A41.9
[2022-05-03 11:52] VITALS: BP 162/87; PULSE 78; RESP 16; TEMP 36.6; O2SAT 96
== END 2022-05-03 13:00 | disposition home or self-care (01) | DRG 872 ==
LOC: ER 09:23 → MEDSURG 10:37
PROVIDERS: Admitting Provider Internal Medicine; Emergency Provider Family Medicine; PCP Family Medicine; Visit Provider Internal Medicine
DX: A41.9 Sepsis, unspecified organism (principal); L03.311 Cellulitis of abdominal wall; Z68.41 Body mass index [BMI] 40.0-44.9, adult; N17.9 Acute kidney failure, unspecified; D84.9 Immunodeficiency, unspecified; M35.00 Sjogren syndrome, unspecified; M06.9 Rheumatoid arthritis, unspecified; E11.9 Type 2 diabetes mellitus without complications; F41.9 Anxiety disorder, unspecified; I25.10 Atherosclerotic heart disease of native coronary artery without angina pectoris; Z99.89 Dependence on other enabling machines and devices; Z86.73 Personal history of transient ischemic attack (TIA), and cerebral infarction without residual deficits; M79.7 Fibromyalgia; I10 Essential (primary) hypertension; E66.01 Morbid (severe) obesity due to excess calories; G47.30 Sleep apnea, unspecified; Z79.4 Long term (current) use of insulin; Z79.891 Long term (current) use of opiate analgesic; B95.62 Methicillin resistant Staphylococcus aureus infection as the cause of diseases classified elsewhere
CPT/HCPCS: 20610; 36415; 36416; 74176; 76705; 80048; 80053; 82962; 83036; 83605; 83735; 85025; 86140; 87040; 87070; 87075; 87077; 87150; 87186; 87205; 96374; 99285; C9113; J2405; J3370; J3490; J7030; J7050; J7327; S0030

== ENCOUNTER → 2022-05-08 09:43 | Outpatient (BNVA) | payer MEDICARE, MEDICAID, SELFPAY | PROVIDERS: PCP Family Medicine; Visit Provider Thoracic Surgery (Cardiothoracic Vascular Surgery) | DX: L98.492 Non-pressure chronic ulcer of skin of other sites with fat layer exposed (principal); I96 Gangrene, not elsewhere classified | CPT/HCPCS: 99203 ==

== ENCOUNTER → 2022-05-15 10:38 | Outpatient (BNVA) | payer MEDICARE, MEDICAID, SELFPAY | PROVIDERS: PCP Family Medicine; Visit Provider Nurse Practitioner Family | DX: I96 Gangrene, not elsewhere classified (principal); L98.492 Non-pressure chronic ulcer of skin of other sites with fat layer exposed | CPT/HCPCS: 99212 ==

== ENCOUNTER 2022-07-04 10:21 | Outpatient (CLI) | payer MEDICARE, MEDICAID, SELFPAY ==
--- NOTE | 2022-07-04 09:15 | FL_ITS ---
WS: [id number] FL sniff test [id number] REASON FOR EXAM: 0 FLUOROSCOPY TIME: # OF SPOT FILMS: 0 FINDINGS: The movement of each diaphragm separately and together with shallow breathing, deep breathing, and at tempted forceful significant. The exam was limited due to the patient's inability to sniff with signi ficant force and rapidity. There was a degree of hypomotility of the right hemidiaphragm however no definite paradoxical movemen t was identified. The left hemidiaphragm appeared to move normally. FL/FL sniff test [id number] IMPRESSION: Limited examination as above. Alternate evaluation can be obtained with PA view of the chest in maximum forced expiration and maximum forced inspiration.
== END 2022-07-04 10:22 | disposition home or self-care (01) ==
LOC: RAD 10:22
PROVIDERS: PCP Family Medicine; Visit Provider Internal Medicine Critical Care Medicine
DX: M06.9 Rheumatoid arthritis, unspecified (principal); M35.00 Sjogren syndrome, unspecified; R09.02 Hypoxemia; R53.83 Other fatigue; Z79.899 Other long term (current) drug therapy; M19.90 Unspecified osteoarthritis, unspecified site; D89.9 Disorder involving the immune mechanism, unspecified; J98.6 Disorders of diaphragm
CPT/HCPCS: 76000; 80053; 85025; 85651; 86140; 99213; 99214

== ENCOUNTER → 2022-07-26 11:06 | Outpatient (BNVA) | payer MEDICARE, MEDICAID, SELFPAY | PROVIDERS: PCP Family Medicine; Visit Provider Internal Medicine Critical Care Medicine | DX: J45.909 Unspecified asthma, uncomplicated (principal); Q79.1 Other congenital malformations of diaphragm; J96.90 Respiratory failure, unspecified, unspecified whether with hypoxia or hypercapnia; G47.30 Sleep apnea, unspecified; Z99.81 Dependence on supplemental oxygen | CPT/HCPCS: 99213 ==

== ENCOUNTER → 2022-08-11 08:49 | Outpatient (BNVA) | payer MEDICARE, MEDICAID, SELFPAY | PROVIDERS: PCP Family Medicine; Visit Provider Internal Medicine Cardiovascular Disease | DX: R07.9 Chest pain, unspecified (principal); I10 Essential (primary) hypertension; I25.10 Atherosclerotic heart disease of native coronary artery without angina pectoris; J45.909 Unspecified asthma, uncomplicated; Z86.73 Personal history of transient ischemic attack (TIA), and cerebral infarction without residual deficits | CPT/HCPCS: 93005; 99214 ==

== ENCOUNTER → 2022-08-29 08:28 | Outpatient (BNVA) | payer MEDICARE, MEDICAID, SELFPAY | PROVIDERS: PCP Family Medicine; Visit Provider Podiatrist Foot & Ankle Surgery | DX: E11.8 Type 2 diabetes mellitus with unspecified complications (principal); M21.41 Flat foot [pes planus] (acquired), right foot; M19.071 Primary osteoarthritis, right ankle and foot; M06.9 Rheumatoid arthritis, unspecified; M76.821 Posterior tibial tendinitis, right leg; M19.072 Primary osteoarthritis, left ankle and foot | CPT/HCPCS: 99204 ==

== ENCOUNTER → 2022-11-09 08:08 | Outpatient (BNVA) | payer MEDICARE, MEDICAID, SELFPAY | PROVIDERS: PCP Family Medicine; Visit Provider Specialist | DX: M17.0 Bilateral primary osteoarthritis of knee (principal); Z71.89 Other specified counseling | CPT/HCPCS: 20610; 73560; 73565; J7327 ==

== ENCOUNTER → 2022-12-01 08:45 | Outpatient (BNVA) | payer MEDICARE, MEDICAID, SELFPAY | PROVIDERS: PCP Family Medicine; Visit Provider Internal Medicine | DX: M06.00 Rheumatoid arthritis without rheumatoid factor, unspecified site (principal); R09.02 Hypoxemia; M35.00 Sjogren syndrome, unspecified; R53.83 Other fatigue; M17.11 Unilateral primary osteoarthritis, right knee | CPT/HCPCS: 36415; 84550; 85025; 85651; 86140; 99214 ==

== ENCOUNTER → 2023-01-16 13:42 | Outpatient (BNVA) | payer MEDICARE, MEDICAID, SELFPAY | PROVIDERS: PCP Family Medicine; Visit Provider Podiatrist Foot & Ankle Surgery | DX: E11.9 Type 2 diabetes mellitus without complications (principal); M21.41 Flat foot [pes planus] (acquired), right foot; M19.072 Primary osteoarthritis, left ankle and foot; M19.071 Primary osteoarthritis, right ankle and foot; M76.821 Posterior tibial tendinitis, right leg; M60.9 Myositis, unspecified | CPT/HCPCS: 99214 ==

== ENCOUNTER → 2023-03-05 11:28 | Outpatient (BNVA) | payer MEDICARE, MEDICAID, SELFPAY | PROVIDERS: PCP Family Medicine; Visit Provider Internal Medicine | DX: M06.9 Rheumatoid arthritis, unspecified (principal); M35.00 Sjogren syndrome, unspecified; R53.83 Other fatigue | CPT/HCPCS: 99213 ==

== ENCOUNTER → 2023-04-06 10:09 | Outpatient (BNVA) | payer MEDICARE, MEDICAID, SELFPAY | PROVIDERS: PCP Family Medicine; Visit Provider Internal Medicine Cardiovascular Disease | DX: R53.83 Other fatigue (principal); R53.1 Weakness; E11.9 Type 2 diabetes mellitus without complications; Z79.84 Long term (current) use of oral hypoglycemic drugs; I10 Essential (primary) hypertension; I25.10 Atherosclerotic heart disease of native coronary artery without angina pectoris; M35.00 Sjogren syndrome, unspecified | CPT/HCPCS: 99213 ==

== ENCOUNTER → 2023-05-24 12:58 | Outpatient (BNVA) | payer MEDICARE, MEDICAID, SELFPAY | PROVIDERS: PCP Family Medicine; Visit Provider Specialist | DX: M17.0 Bilateral primary osteoarthritis of knee (principal); Z71.89 Other specified counseling | CPT/HCPCS: 20610; J7318 ==

== ENCOUNTER → 2023-06-19 14:34 | Outpatient (BNVA) | payer MEDICARE, MEDICAID, SELFPAY | PROVIDERS: PCP Family Medicine; Visit Provider Internal Medicine Pulmonary Disease | DX: R06.02 Shortness of breath (principal); Z79.899 Other long term (current) drug therapy | CPT/HCPCS: 36415; 82785; 86003; 99214 ==

== ENCOUNTER → 2023-07-04 11:15 | Outpatient (BNVA) | payer MEDICARE, SELFPAY | PROVIDERS: PCP Family Medicine; Visit Provider Internal Medicine | DX: M06.00 Rheumatoid arthritis without rheumatoid factor, unspecified site; M17.11 Unilateral primary osteoarthritis, right knee; M35.00 Sjogren syndrome, unspecified; R53.83 Other fatigue | CPT/HCPCS: 20610; 73562; 99214; J1030 ==

== ENCOUNTER → 2023-12-20 09:42 | Outpatient (BNVA) | payer MEDICARE, SELFPAY | PROVIDERS: PCP Family Medicine; Visit Provider Internal Medicine Pulmonary Disease | DX: J45.998 Other asthma (principal); Q79.1 Other congenital malformations of diaphragm; J96.90 Respiratory failure, unspecified, unspecified whether with hypoxia or hypercapnia; G47.30 Sleep apnea, unspecified; F32.A Depression, unspecified; M06.9 Rheumatoid arthritis, unspecified; Z99.81 Dependence on supplemental oxygen; Z99.89 Dependence on other enabling machines and devices; M17.0 Bilateral primary osteoarthritis of knee; Z71.89 Other specified counseling | CPT/HCPCS: 20610; 99214; J7318 ==

== ENCOUNTER → 2024-05-08 09:38 | Outpatient (BNVA) | payer MEDICARE, SELFPAY | PROVIDERS: PCP Family Medicine; Visit Provider Internal Medicine Rheumatology | DX: M35.00 Sjogren syndrome, unspecified (principal); M06.041 Rheumatoid arthritis without rheumatoid factor, right hand; M06.042 Rheumatoid arthritis without rheumatoid factor, left hand; Z79.899 Other long term (current) drug therapy; Z71.85 Encounter for immunization safety counseling; Z11.59 Encounter for screening for other viral diseases; Z11.1 Encounter for screening for respiratory tuberculosis; M19.041 Primary osteoarthritis, right hand; M19.042 Primary osteoarthritis, left hand | CPT/HCPCS: 80076; 82565; 85025; 85651; 86140; 86480; 86704; 86803; 87340; 99214 ==

== ENCOUNTER → 2024-06-27 08:38 | Outpatient (BNVA) | payer MEDICARE, SELFPAY | PROVIDERS: PCP Family Medicine; Visit Provider Specialist | DX: M17.0 Bilateral primary osteoarthritis of knee (principal) | CPT/HCPCS: 20610; J7318 ==

== ENCOUNTER → 2024-09-04 11:00 | Outpatient (BNVA) | payer MEDICARE, SELFPAY | PROVIDERS: PCP Family Medicine; Visit Provider Internal Medicine Rheumatology | DX: M06.041 Rheumatoid arthritis without rheumatoid factor, right hand (principal); M06.042 Rheumatoid arthritis without rheumatoid factor, left hand; M19.041 Primary osteoarthritis, right hand; M19.042 Primary osteoarthritis, left hand; M35.00 Sjogren syndrome, unspecified; Z79.899 Other long term (current) drug therapy; Z71.85 Encounter for immunization safety counseling | CPT/HCPCS: 36415; 80076; 82565; 83036; 84443; 85025; 85651; 86140; 99214 ==

== ENCOUNTER 2024-09-11 12:47 | Outpatient (CLI) | payer MEDICARE, SELFPAY ==
--- NOTE | 2024-09-11 12:40 | MM_ITS ---
WS: [id number] BILATERAL SCREENING DIGITAL TOMOSYNTHESIS MAMMOGRAM WITH CAD HISTORY: SCREEN COMPARISON: 05/21/2019, 01/11/2017 Bilateral CC and MLO views with tomosynthesis and synthetic mammography submitted. Computer aided det ection analyzed. Breast composition: There are scattered areas of fibroglandular density. No suspicious masses, microc alcifications or architectural distortion. Scattered round calcifications and arterial calcifications . The asymmetries are stable. MM/MM scr tomosynthesis [id number] IMPRESSION: BI-RADS: 2 - Benign. FOLLOW UP: 1 Year Follow-up
== END 2024-09-11 12:48 | disposition home or self-care (01) ==
LOC: MOBLMAM 12:48
PROVIDERS: PCP Family Medicine; Visit Provider Family Medicine
DX: Z12.31 Encounter for screening mammogram for malignant neoplasm of breast (principal); R92.323 Mammographic fibroglandular density, bilateral breasts; R92.1 Mammographic calcification found on diagnostic imaging of breast
CPT/HCPCS: 77063; 77067

== ENCOUNTER → 2025-01-01 10:16 | Outpatient (BNVA) | payer MEDICARE, SELFPAY | PROVIDERS: PCP Family Medicine; Visit Provider Internal Medicine Rheumatology | DX: M35.00 Sjogren syndrome, unspecified (principal); M06.041 Rheumatoid arthritis without rheumatoid factor, right hand; M06.042 Rheumatoid arthritis without rheumatoid factor, left hand; Z79.899 Other long term (current) drug therapy; Z71.85 Encounter for immunization safety counseling | CPT/HCPCS: 36415; 80076; 82565; 85025; 85651; 86140; 99214 ==

== ENCOUNTER → 2025-01-16 10:00 | Outpatient (BNVA) | payer MEDICARE, SELFPAY | PROVIDERS: PCP Family Medicine; Visit Provider Specialist | DX: M17.0 Bilateral primary osteoarthritis of knee (principal); Z71.89 Other specified counseling | CPT/HCPCS: 20610; J7318 ==

== ENCOUNTER → 2025-04-16 10:42 | Outpatient (BNVA) | payer MEDICARE, SELFPAY | PROVIDERS: PCP Family Medicine; Visit Provider Internal Medicine Rheumatology | DX: M35.00 Sjogren syndrome, unspecified (principal); M06.041 Rheumatoid arthritis without rheumatoid factor, right hand; M06.042 Rheumatoid arthritis without rheumatoid factor, left hand; Z79.899 Other long term (current) drug therapy; Z71.85 Encounter for immunization safety counseling | CPT/HCPCS: 36415; 80076; 82565; 85025; 85651; 86140; 99214 ==

== ENCOUNTER → 2025-07-06 13:15 | Outpatient (BNVA) | payer MEDICARE, SELFPAY | PROVIDERS: PCP Family Medicine; Visit Provider Internal Medicine Cardiovascular Disease | DX: I34.1 Nonrheumatic mitral (valve) prolapse (principal); J44.9 Chronic obstructive pulmonary disease, unspecified; I10 Essential (primary) hypertension; I25.10 Atherosclerotic heart disease of native coronary artery without angina pectoris | CPT/HCPCS: 99214 ==

== ENCOUNTER → 2025-07-20 13:43 | Outpatient (BNVA) | payer MEDICARE, SELFPAY | PROVIDERS: PCP Family Medicine; Visit Provider Specialist | DX: M17.0 Bilateral primary osteoarthritis of knee (principal) | CPT/HCPCS: 73560; 73565; 99214 ==

== ENCOUNTER 2025-07-29 07:29 | Observation (INO) | payer MEDICARE, SELFPAY ==
[2025-07-29] VITALS (19 sets, daily range): BP systolic 115–149; BP diastolic 52–97; PULSE 66–97; RESP 12–22; TEMP 36.6; O2SAT 92–99; BMI 35.0; BMI 35.3
--- OUTSIDE RECORDS SUMMARY | 2025-07-29 07:37 | XMS_ITS | Encounter Summary ---
Author Organization [facility] Address [address] [place] [address] Care Team Providers Care Scuba Instructor Name Role Phone Unavailable Primary Care Provider Unavailabl e Encounter Details Date Type Department Care Team (Latest Contact Info) Description 05/12/1998 Outpatient Historical [facility] Rheumatology- [facility] [place] [address] [place] [phone] Ajay Morris MD NO ADDRESS ON FILE Sicca syndrome (Primary Dx); Myalgia and myositis, unspecified Social History Tobacco Use Types Packs/Day Years Used Date Smoking Tobacco: Never Assessed Comments Unknown Sex and Gender Information Value Date Recorded Sex Assigned at Not on file 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
--- OUTSIDE RECORDS SUMMARY | 2025-07-29 07:37 | XMS_ITS | Clinical Summary ---
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 Gender Identity Not on file Sexual Orientation Not on file Plan of Treatment Upcoming Encounters Date Type Department Care Team (Late st Contact Info) Description 08/26/2025 9:30 AM CDT Office Visit [facility] [address] [place] [phone] Nelly Helm MD [address] [place] [phone] Health Maintenance Due Date Last Done Comments DTAP/TDAP/TD VACCINES (1 - Tdap) 1970 BREAST CANCER SCREENING 1991 COLORECTAL SCREENING 1996 Colorectal Cancer Screening 1996 FIT-DNA Q 3 years 1996 FIT/FOBT Q 1 year 1996 Flex Sig/CT Colonography Q 5 years 1996 PNEUMOCOCCAL VACCINE 50+ YEARS (1 of 1 - PCV) 05/26/20 ZOSTER VACCINE (1 of 2) 2001 OSTEOPOROSIS SCREENING 2016 INFLUENZA VACCINE (#1) 2025 RSV VACCINE (60+ or ) (1 - 1-dose 75+ series) 2026 Insurance [facility] DUAL ADVANTAGE O DSNP
--- OUTSIDE RECORDS SUMMARY | 2025-07-29 07:37 | XMS_ITS | Encounter Summary ---
Author Organization [facility] Address [address] [place] [address] Care Team Providers Care Stemhole Borer And Topper Name Role Phone Unavailable Primary Care Provider Unavailabl e Encounter Details Date Type Department Care Team (Latest Contact Info) Description 09/02/1998 Outpatient Historical [facility] Rheumatology- [place] [address] [place] [phone] Ajay Morris MD NO ADDRESS ON FILE Sicca syndrome (Primary Dx); Myalgia and myositis, unspecified Social History Tobacco Use Types Packs/Day Years Used Date Smoking Tobacco: Never Assessed Comments Unknown Sex and Gender Information Value Date Recorded Sex Assigned at Not on file 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
--- OUTSIDE RECORDS SUMMARY | 2025-07-29 07:37 | XMS_ITS | Encounter Summary ---
Author Organization [facility] Address [address] [place] [address] Care Team Providers Care Crematorium Operator Name Role Phone Unavailable Primary Care Provider Unavailabl e Encounter Details Date Type Department Care Team (Latest Contact Info) Description 06/03/1998 Outpatient Historical [facility] Rheumatology- [address] [place] [phone] Ajay Morris MD NO ADDRESS ON FILE Sicca syndrome (Primary Dx); Myalgia and myositis, unspecified Social History Tobacco Use Types Packs/Day Years Used Date Smoking Tobacco: Never Assessed Comments Unknown Sex and Gender Information Value Date Recorded Sex Assigned at Not on file 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
--- OUTSIDE RECORDS SUMMARY | 2025-07-29 07:37 | XMS_ITS | Clinical Summary ---
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
--- NOTE | 2025-07-29 07:47 | CTR_ITS ---
PROCEDURE INFORMATION: Exam: CT Head Without Contrast Exam date and time: 07/29/2025 7:52 AM Age: 75 years old Clinical indication: Stroke-like symptoms; Speech disturbance; Right facial droop; Additional info: Symptoms of acute stroke TECHNIQUE: Imaging protocol: Computed tomography of the head without contrast. Radiation optimization: All CT scans at this facility use at least one of these dose optimization techniques: automated exposure control; mA and/or kV adjustment per patient size (includes targeted exams where dose is matched to clinical indication); or iterative reconstruction. Other technique: STROKE PROTOCOL was implemented. COMPARISON: CT head wo con* [id number] 07/30/2020 4:12 AM RADIATION DOSE METRICS: Total DLP (mGy-cm): 1075.38 FINDINGS: Brain: Moderate hypoattenuating foci are noted in the anterior lateral ventricular periventricular white matter bilaterally. No intracranial hemorrhage. No mass or acute cortical infarction identified. Ventricles: Prominence of the ventricular system and subarachnoid spaces is consistent with the patient's age of 75 years. Paranasal sinuses: Visualized sinuses are unremarkable. No fluid levels. Mastoid air cells: Visualized mastoid air cells are well aerated. Orbital cavities: Prior cataract surgery with ocular lens replacement. Bones: No acute abnormality identified. No acute fracture. Soft tissues: Unremarkable. Vasculature: Atherosclerotic calcifications are present involving the carotid artery siphons bilaterally. CT/CT head thrombolytic [id number] IMPRESSION: 1. Age appropriate supratentorial and infratentorial atrophy. 2. Moderate chronic white matter microvascular ischemic disease. 3. No acute intracranial abnormality identified. ASSESSMENT: ASPECTS ([place]ile Stroke Program Early CT Score) is 10.
--- NOTE | 2025-07-29 07:47 | XR_ITS ---
WS: [id number] Portable AP upright chest, 07/29/2025 Clinical Data: cva Comparison: Two-view chest, 02/28/2022 Findings: No nodules, masses or effusions are seen. The heart is normal. The pulmonary vascularity is not increased. No pneumonia or pneumothorax is seen. The right diaphragm remains elevated. The aortic arch and descending thoracic aorta show tortuosity. Monitor leads are on the chest wall. XR/XR chest 1V portable [id number] Impression: Atherosclerosis.
--- NOTE | 2025-07-29 07:47 | CTR_ITS ---
PROCEDURE INFORMATION: Exam: CTA Head With Contrast, Arteriography Exam date and time: 07/29/2025 7:59 AM Age: 75 years old Clinical indication: Numbness and speech disturbance and weakness; Slurred speech; Additional info: CVA TECHNIQUE: Imaging protocol: Computed tomographic angiography of the head with contrast. Exam focused on the arteries. 3D rendering (Not supervised by radiologist): MIP reconstructed images were created by the technologist. Radiation optimization: All CT scans at this facility use at least one of these dose optimization techniques: automated exposure control; mA and/or kV adjustment per patient size (includes targeted exams where dose is matched to clinical indication); or iterative reconstruction. Contrast material: OMNI 350; Contrast volume: 100 ml; Contrast route: INTRAVENOUS (IV); COMPARISON: CT head thrombolytic [id number] 07/29/2025 7:52 AM RADIATION DOSE METRICS: Total DLP (mGy-cm): 439.13 FINDINGS: ANTERIOR CIRCULATION: Right internal carotid artery: Cavernous segment calcified plaque, less than 20% stenosis. Right middle cerebral artery: No occlusion or significant stenosis. No aneurysm. Right anterior cerebral artery: No occlusion or significant stenosis. No aneurysm. Left internal carotid artery: Cavernous and paraclinoid segment calcified plaque, less than 40% stenosis. Left middle cerebral artery: No occlusion or significant stenosis. No aneurysm. Left anterior cerebral artery: No occlusion or significant stenosis. No aneurysm. POSTERIOR CIRCULATION: Right vertebral artery: No occlusion or significant stenosis. No aneurysm. Left vertebral artery: No occlusion or significant stenosis. No aneurysm. Basilar artery: No occlusion or significant stenosis. No aneurysm. Right posterior cerebral artery: No occlusion or significant stenosis. No aneurysm. Left posterior cerebral artery: No occlusion or significant stenosis. No aneurysm. Brain: No definite mass, mass effect, or midline shift. Ventricles: No hydrocephalus. Bones/joints: No acute abnormality. No acute fracture. Soft tissues: Unremarkable. PROCEDURE INFORMATION: Exam: CTA Neck With Contrast Exam date and time: 07/29/2025 7:59 AM Age: 75 years old Clinical indication: Numbness and speech disturbance and weakness; Slurred speech; Additional info: CVA TECHNIQUE: Imaging protocol: Computed tomographic angiography of the neck with contrast. Exam focused on the cervical segments of the vasculature. 3D rendering (Not supervised by radiologist): MIP reconstructed images were created by the technologist. Radiation optimization: All CT scans at this facility use at least one of these dose optimization techniques: automated exposure control; mA and/or kV adjustment per patient size (includes targeted exams where dose is matched to clinical indication); or iterative reconstruction. Contrast material: OMNI 350; Contrast volume: 100 ml; Contrast route: INTRAVENOUS (IV); COMPARISON: CT head thrombolytic [id number] 07/29/2025 7:52 AM RADIATION DOSE METRICS: Total DLP (mGy-cm): 439.13 FINDINGS: Right common carotid artery: No stenosis. No dissection or occlusion. Right internal carotid artery: Posteromedial origin right internal carotid artery, normal variant. No stenosis/occlusion. Right external carotid artery: No occlusion or stenosis of the origin. Left common carotid artery: No stenosis. No dissection or occlusion. Left internal carotid artery: No stenosis of the extracranial segment. No dissection or occlusion. Left external carotid artery: No occlusion or stenosis of the origin. Right vertebral artery: No stenosis. No dissection or occlusion. Left vertebral artery: No stenosis. No dissection or occlusion. Soft tissues: Normal. No significant soft tissue swelling. Bones/joints: No acute fracture. Lungs: Bilateral upper lobe calcified pulmonary parenchymal granulomas. CT/CT angio headneck* [id number] IMPRESSION: No acute intracranial vascular abnormality identified. IMPRESSION: No acute extracranial vascular abnormality identified. REFERENCES: NASCET CRITERIA. The degree of stenosis in the cervical segment of the internal carotid artery is based on NASCET criteria. Normal is no stenosis. Mild is less than 50% stenosis. Moderate is 50-69% stenosis. Severe is 70% to 99% stenosis. Total occlusion is no detectable patent lumen.
--- NOTE | 2025-07-29 07:48 | W.ED.NEUROSD ---
HPI - Neuro Symptoms/Deficit General: Chief Complaint: Neuro Symptoms/Deficit Stated Complaint: rt side numbness Time Seen by Provider: 07/29/25 07:32 Source: patient Mode of arrival: ambulatory Limitations: no limitations History of Present Illness: 75-year-old female who states that she had went to bed last night at 9 she woke up at 3 AM feeling normal she states she then woke up this morning at roughly an hour ago with slurred speech she states she had right sided facial numbness and slight droop along with right sided arm and leg weakness. She denies any headaches she denies any history of stroke she denies any chest pain Associated symptoms: Deny chest pain, headache(s), nausea or vomiting Related Data Home Medications ?Medication ?Instructions ?Recorded ?Confirmed diltiazem HCl 240 mg capsule,24 240 mg PO QAM 11/24/19 07/20/25 hr,extended release montelukast 10 mg tablet 10 mg PO DAILY 11/24/19 07/20/25 oxycodone-acetaminophen 5 mg-325 1 tab PO Q4H PRN Pain, Severe 11/24/19 07/20/25 mg tablet spironolactone 25 mg tablet 25 mg PO DAILY 11/24/19 07/20/25 cholecalciferol (vitamin D3) 25 25 mcg PO DAILY 12/08/19 07/20/25 mcg (1,000 unit) capsule fluticasone propionate 50 2 spray intranasal DAILY 05/25/20 07/20/25 mcg/actuation nasal spray,suspension (Flonase Allergy Relief) biotin 1,000 mcg chewable tablet 1,000 mcg PO DAILY 07/22/20 07/20/25 diphenhydramine HCl 25 mg capsule 25 mg PO Q6H PRN Allergy Symptoms 07/22/20 07/20/25 (Benadryl) levothyroxine 100 mcg capsule 112 mcg PO DAILY 08/05/21 07/20/25 desvenlafaxine succinate 25 mg 25 mg PO DAILY 04/29/22 07/20/25 tablet,extended release 24 hr aspirin 325 mg tablet 325 mg PO DAILY 08/11/22 07/20/25 albuterol sulfate 90 mcg/actuation 2 puff inhalation Q6H PRN 12/20/23 07/20/25 aerosol inhaler cetirizine 10 mg tablet (Zyrtec) 10 mg PO DAILY PRN 07/06/25 07/20/25 citalopram 40 mg tablet 40 mg PO DAILY 07/06/25 07/20/25 cyanocobalamin (vitamin B-12) 1,000 mcg PO DAILY 07/06/25 07/20/25 1,000 mcg capsule metformin 500 mg tablet 1,000 mg PO DAILY 07/06/25 07/20/25 mirabegron 25 mg tablet,extended 25 mg PO DAILY 07/06/25 07/20/25 release 24 hr (Myrbetriq) Previous Rx's ?Medication ?Instructions ?Recorded tramadol 50 mg tablet See Rx Instructions PO Q8H PRN 12/09/19 pain #180 tabs fluticasone fur. 200 mcg-umeclid 1 inh inhalation DAILY #180 ea 05/05/24 62.5 mcg-vilant 25 mcg inhalat.powder (Trelegy Ellipta) pantoprazole 40 mg tablet,delayed See Rx Instructions PO DAILY #30 01/01/25 release tabs diclofenac sodium 1 % topical gel 4 g topical QID #100 grams 04/16/25 (Arthritis Pain (diclofenac)) prednisone 20 mg tablet See Rx Instructions PO .COMPLEX 04/16/25 PRN joint pain flare #30 tabs prednisone 5 mg tablet 5 mg PO DAILY #90 tabs 04/16/25 tofacitinib 5 mg tablet (Xeljanz) 5 mg PO BID #60 tabs 04/16/25 lisinopril 10 mg tablet See Rx Instructions .Route 04/27/25 .COMPLEX #90 tabs isosorbide mononitrate 30 mg 15 mg (1/2 x 30 mg) PO DAILY #45 07/01/25 tablet,extended release 24 hr tabs Allergies Allergy/AdvReac Type Severity Reaction Status Date / Time coconut oil Allergy Severe ALGY-Anaphy Verified 07/20/25 08:24 laxis Penicillins Allergy Severe ALGY-Rash Verified 07/20/25 08:24 prochlorperazine (From AdvReac Severe ADR-Halluci Verified 07/20/25 08:24 Compazine) nating gabapentin AdvReac Intermediate balance Verified 07/20/25 08:24 issues Review of Systems Const: Denies: fever(s), chills, body aches or change in appetite Eyes: Denies: blurry vision or eye discomfort ENMT: Denies: throat pain or dental pain Card: Denies: chest pain Resp: Denies: dyspnea GI: Denies: abdominal pain, nausea, vomiting or diarrhea Musc: Denies: neck pain or back pain Skin/Breast: Denies: rash Neuro: Reports: weakness in extremities and Slurred speech present; Denies: headache(s) PFSH ED PFSH: Medical History Immunization counseling High risk medication use Seronegative rheumatoid arthritis of both hands Hypoxemia Osteoarthritis, hand Sleep apnea CPAP (continuous positive airway pressure) dependence Hypertension Autoimmune disorder Coronary atherosclerosis Diabetes mellitus Anxiety CVA (cerebral vascular accident) Conjunctivitis Sinusitis Allergic rhinitis Polyosteoarthritis, unspecified Recurrent falls Immunosuppression Medication monitoring encounter Fibromyalgia Rotator cuff tear arthropathy of both shoulders Osteoarthritis of knees, bilateral Sjogrens syndrome Sjogren's disease Surgical History H/O removal of cyst Hx of tubal ligation Hx of LASIK History of cholecystectomy Hx of knee surgery H/O rotator cuff surgery Family History Father Stroke CAD (coronary artery disease) Mother Parkinson disease Other Dementia Diabetes Thyroid disease Social History Smoking and tobacco/nicotine status: never used tobacco/nicotine Alcohol intake: current Alcohol intake frequency: holidays/special occasions only Substance/Drug Use: never Lives independently: Yes Household members: spouse Housing: House Marital status: Number of children: 4 Current occupational status: retired and disabled Do you think of yourself as: Straight/Heterosexual Current gender identity: Female NIH stroke score NIHSS: Level Of Consciousness - 1a: 0 Level Of Consciousness Questions - 1b: Both Correct Level Of Consciousness Commands - 1c: Both Correct Best Gaze - 2: Normal Visual Hooks - 3: No Visual Loss Facial Palsy - 4: Minor Paralysis Motor Arm Right - 5: Drift Motor Arm Left - 5: No Drift Motor Leg Right - 6: Drift Motor Leg Left - 6: No Drift Limb Ataxia - 7: Absent Sensory - 8: Normal Best Language - 9: No Aphasia Dysarthia - 10: Mild/Moderate Dysarthia Extinction And Inattention - 11: 0 Score: Total Score: 4 Physical Exam Const: COMMON NORMALS: no acute distress, patient oriented x3 and healthy appearing HENMT: COMMON NORMALS: normocephalic and atraumatic HEAD & SCALP: normocephalic and atraumatic Eye: COMMON NORMALS: Equal, round and reactive pupils present, EOMs intact bilaterally and conjunctivae normal VISUAL HOOKS: No peripheral vision loss, No central vision loss, No left visual field cut, No right visual field cut, No bitemporal visual field cut, No binasal visual field cut and No visual field cut by quadrant CONJUNCTIVA: Yes conjunctivae normal PUPIL: Yes Equal, round and reactive pupils present Neck/C-Spine: COMMON NORMALS: full ROM and supple Chest: COMMONS NORMALS: normal inspection of the chest Resp: COMMON NORMALS: normal respiratory effort, No retractions, No use of accessory muscles and clear to auscultation bilaterally AUSCULTATION: clear to auscultation bilaterally Cardio: COMMON NORMALS: regular rate, regular rhythm and No murmurs present (Cardio) RATE: regular rate RHYTHM: regular rhythm Extremity: COMMON NORMALS: normal to inspection and full ROM Neuro: COMMON NORMALS: patient oriented x3 OTHER: Mild slurred speech does have drift to right arm and right leg Psych: COMMON NORMALS: mental status grossly normal, Normal thought process present and cooperative THOUGHT PROCESS: Normal thought process present Skin: COMMON NORMALS: no rashes or lesions noted and no wounds GENERAL SKIN EXAM: no rashes or lesions noted Course Vital Signs: Vital signs: Vital Signs Pulse Rate 66 07/29/25 08:58 Respiratory Rate 17 07/29/25 08:58 Blood Pressure 115/87 07/29/25 08:58 Pulse Oximetry 97 07/29/25 08:58 Oxygen Delivery Me thod Room Air 07/29/25 08:58 MDM - Neuro Symptoms/Deficit Medical Decision Making Patient presents for slurred speech and right sided weakness. Patient is out of the window for tPA her last known normal was 3 AM CTA showed no large vessel occlusion. Patient was given an aspirin here I spoke to the hospitalist will admit for further workup for stroke Medical Records I reviewed the patient's medical records. Lab Data I reviewed the patient's lab results. 07/29/25 07:51 07/29/25 07:51 Radiology Impressions Chest X-Ray 07/29/25 07:47 Impression: Atherosclerosis. Head CT 07/29/25 07:47 IMPRESSION: 1. Age appropriate supratentorial and infratentorial atrophy. 2. Moderate chronic white matter microvascular ischemic disease. 3. No acute intracranial abnormality identified. ASSESSMENT: ASPECTS ([place]ile Stroke Program Early CT Score) is 10. ADDENDUM: 07/29/25 0806 THIS REPORT CONTAINS FINDINGS THAT MAY BE CRITICAL TO PATIENT CARE. The findings were verbally communicated by me to DR. FARRUKH LEE via telephone conference at 8:05 AM CDT on 07/29/2025. The findings were acknowledged and understood. Head/Neck CTA 07/29/25 07:47 IMPRESSION: No acute intracranial vascular abnormality identified. IMPRESSION: No acute extracranial vascular abnormality identified. REFERENCES: NASCET CRITERIA. The degree of stenosis in the cervical segment of the internal carotid artery is based on NASCET criteria. Normal is no stenosis. Mild is less than 50% stenosis. Moderate is 50-69% stenosis. Severe is 70% to 99% stenosis. Total occlusion is no detectable patent lumen. Laboratory Results WBC 10.81 10^3/uL (3.29-11.43) 07/29/25 07:51 RBC 4.70 10^6/uL (3.85-5.65) 07/29/25 07:51 Hgb 12.10 g/dL (11.27-16.99) 07/29/25 07:51 Hct 38.9 % (36-47) 07/29/25 07:51 MCV 82.8 fl (85-98) L 07/29/25 07:51 MCH 25.7 pg (27-33) L 07/29/25 07:51 MCHC 31.1 g/dL (30-55) 07/29/25 07:51 RDW 14.3 % (12.1-15.1) 07/29/25 07:51 Plt Count 469 10^3/cmm (157-399) H 07/29/25 07:51 MPV 9.2 fL (7.4-10.4) 07/29/25 07:51 Neut % (Auto) 57.7 % 07/29/25 07:51 Lymph % (Auto) 30.6 % 07/29/25 07:51 Garvin % (Auto) 8.5 % 07/29/25 07:51 Eos % (Auto) 1.0 % 07/29/25 07:51 Baso % (Auto) 0.3 % 07/29/25 07:51 Neut # (Auto) 6.24 10^3/uL (1.8-7.7) 07/29/25 07:51 Lymph # (Auto) 3.3 10^3/uL (0.8-4.8) 07/29/25 07:51 Garvin # (Auto) 0.9 10^3/uL (0.2-0.9) 07/29/25 07:51 Eos # (Auto) 0.1 10^3/uL (0.0-0.8) 07/29/25 07:51 Baso # (Auto) 0.0 10^3/uL (0.0-0.1) 07/29/25 07:51 Nucleated RBC % (auto) 0 % 07/29/25 07:51 Nucleated RBCs # 0.0 /100WBC 07/29/25 07:51 PT 12.50 SECONDS (12.1-14.9) 07/29/25 07:51 INR 0.87 (0.8-1.2) 07/29/25 07:51 APTT 20.5 SECONDS (23.9-36.7) L 07/29/25 07:51 Sodium 133 mmol/L (136-145) L 07/29/25 07:51 Potassium 4.8 mmol/L (3.5-5.1) 07/29/25 07:51 Chloride 95 mmol/L (98-107) L 07/29/25 07:51 Carbon Dioxide 21 mmol/L (22-29) L 07/29/25 07:51 Anion Gap 21.8 (5-19) H 07/29/25 07:51 BUN 7 mg/dL (8-23) L 07/29/25 07:51 Creatinine 0.6 mg/dL (0.5-0.9) 07/29/25 07:51 GFR Calculation Not Reportable 07/29/25 07:51 Glucose 82 mg/dL (65-115) 07/29/25 07:51 POC Glucose 77 mg/dL (70-110) 07/29/25 07:47 Calculated Osmolality 273 mOsm/kg (285-295) L 07/29/25 07:51 Calcium 9.6 mg/dL (8.5-10.5) 07/29/25 07:51 Total Bilirubin 0.2 mg/dL (0.15-1.2) 07/29/25 07:51 AST 18 U/L (0-32) 07/29/25 07:51 ALT 11 U/L (0-33) 07/29/25 07:51 Alkaline Phosphatase 123 U/L (35-105) H 07/29/25 07:51 Total Protein 7.2 g/dL (6.6-8.7) 07/29/25 07:51 Albumin 4.1 g/dL (3.5-5.2) 07/29/25 07:51 Globulin 3.1 g/dL (1.3-4.6) 07/29/25 07:51 Urine Color Yellow (Yellow) 07/29/25 08:31 Urine Appearance Clear (CLEAR) 07/29/25 08:31 Urine pH 6.5 (5-7) 07/29/25 08:31 Ur Specific Ferguson 1.037 (1.005-1.030) H 07/29/25 08:31 Urine Protein Negative (Negative) 07/29/25 08:31 Urine Glucose (UA) Negative (Normal) 07/29/25 08:31 Urine Ketones Negative (Negative) 07/29/25 08:31 Urine Blood 1+ (Negative) A 07/29/25 08:31 Urine Nitrate Negative (Negative) 07/29/25 08:31 Urine Bilirubin Negative (Negative) 07/29/25 08:31 Urine Urobilinogen 1.0 mg/dL (Negative) 07/29/25 08:31 Ur Leukocyte Esterase Negative (Negative) 07/29/25 08:31 Urine RBC 0-2 /hpf (0-2) 07/29/25 08:31 Urine WBC 0-5 /hpf (0-5) 07/29/25 08:31 Ur Squamous Epith Cells 0-5 /hpf (0-5) 07/29/25 08:31 Amorphous Sediment Not Reportable 07/29/25 08:31 Urine Bacteria None seen /hpf (NONE) 07/29/25 08:31 Hyaline Casts 0-4 /lpf H 07/29/25 08:31 Urine Opiates Screen Negative ng/mL (Negative) 07/29/25 08:31 Ur Barbiturates Screen Negative ng/mL (Negative) 07/29/25 08:31 Ur Phencyclidine Scrn Negative ng/mL (Negative) 07/29/25 08:31 Ur Amphetamines Screen Negative ng/mL (Negative) 07/29/25 08:31 U Benzodiazepines Scrn Negative ng/mL (Negative) 07/29/25 08:31 Urine Cocaine Screen Negative ng/mL (Negative) 07/29/25 08:31 U Marijuana (THC) Screen Positive ng/mL (Negative) H 07/29/25 08:31 All radiology interpretation(s) finalized by discharge EKG Data EKG 1: I personally reviewed and interpreted this EKG as follows: EKG interpretation date: 07/29/25 EKG interpretation time: 08:06 Interpretation: nsr hr [address] or t wave abnormalities qrs 88 qtc 389 Discharge Plan Discharge Patient Disposition: Admitted As Inpatient Clinical Impression: CVA (cerebral vascular accident) Condition: Stable Coding Level of Care Code ED [employer] for [employer]
[2025-07-29 07:57] LABS: Hematocrit 38.9 % (36-47); Hemoglobin 12.10 g/dL (11.27-16.99); Mean Corpuscular HGB Conc 31.1 g/dL (30-55); Mean Corpuscular Hemoglobin 25.7 pg (27-33); Mean Corpuscular Volume 82.8 fl (85-98); Nucleated Red Blood Cells % 0 %; Platelet Count 469 10^3/cmm (157-399); Red Blood Count 4.70 10^6/uL (3.85-5.65); White Blood Count 10.81 10^3/uL (3.29-11.43)
--- NOTE | 2025-07-29 08:06 | ECG_ITS ---
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 Measurements Intervals [place] Rate: 74 P: 57 GA: 193 QRS: 54 QRSD: 88 T: 73 QT: 361 QTc: 403 Interpretive Statements SINUS RHYTHM Compared to ECG 07/22/2020 16:55:05 Sinus bradycardia no longer present Intraventricular conduction delay no longer present Left ventricular hypertrophy no longer present ST (T wave) deviation no longer present Myocardial infarct finding no longer present Electronically Signed On 07-29-2025 17:33:07 CDT by Angelica Lemon M.D. [email or web address]
[2025-07-29] MEDS: iohexol 350 mg/mL 500 mL Btl (per mL) IV (08:07)
[2025-07-29 08:18] LABS: Alanine Aminotransferase 11 U/L (0-33); Albumin Level 4.1 g/dL (3.5-5.2); Alkaline Phosphatase 123 U/L (35-105); Blood Urea Nitrogen 7 mg/dL (8-23); Calcium 9.6 mg/dL (8.5-10.5); Carbon Dioxide 21 mmol/L (22-29); Chloride 95 mmol/L (98-107); Creatinine Clr Calc Pharmacy 68.0146; Globulin 3.1 g/dL (1.3-4.6); Glucose 82 mg/dL (65-115); INR 0.87 (0.8-1.2); Osmolality Calculated 273 mOsm/kg (285-295); Prothrombin Time 12.50 SECONDS (12.1-14.9); Sodium 133 mmol/L (136-145); Total Protein 7.2 g/dL (6.6-8.7)
[2025-07-29 08:19] LABS: Partial Thromboplastin Time 20.5 SECONDS (23.9-36.7)
[2025-07-29 08:20] LABS: Anion Gap 21.8 (5-19); Aspartate Amino Transferase 18 U/L (0-32); Potassium 4.8 mmol/L (3.5-5.1)
[2025-07-29 08:41] LABS: Glucose Urine UA Negative (Normal); Nitrate Urine Negative (Negative)
[2025-07-29 08:46] LABS: Add Urine Microscopic? YES
[2025-07-29 08:48] LABS: PCP Screen Urine Negative (Negative)
[2025-07-29 08:51] LABS: Specific Gravity, Urine 1.037 (1.005-1.030)
--- NOTE | 2025-07-29 08:56 | PC.NURSE ---
placed R a/c IV in ER prior to CTA, infiltrated in CT
--- NOTE | 2025-07-29 10:20 | PC.PHAR ---
Pt presented current list and states she took all her medications yesterday 07/28/25
--- NOTE | 2025-07-29 12:24 | PM.HP ---
Providers/Chief Complaint Admitting Physician: Jesus Alberto Walton Primary Care Provider: Pool Arriaga MD Chief Complaint: rt side numbness History of Present Illness Sol Wall is a 75 year old patient with seronegative rheumatoid arthritis, hypertension, diabetes mellitus, allergic rhinitis, and Sj?gren syndrome who went to bed without issues around 9 p.m., awoke around 3 a.m. to use the bathroom without symptoms, and on awakening around 7 a.m. noted slurred speech, right facial numbness with slight droop, and right arm and leg weakness/heaviness (able to ambulate). Symptoms have improved; reports residual numbness around the mouth and nose. Reports prior transient ischemic attacks (TIAs) characterized by left-sided numbness previously associated with migraines; remote history of severe migraines, none recently. Denies fever, chills, sore throat, runny nose, cough, vomiting, diarrhea, or rashes. Emergency department (ED) workup: CT head showed moderate chronic white matter microvascular ischemic disease with no acute intracranial abnormality; age-appropriate supratentorial and infratentorial atrophy. CT angiogram of the neck without large-vessel obstruction; no carotid disease. Electrocardiogram (ECG) interpreted at bedside as sinus rhythm (official read pending). Vitals in ED: blood pressure 127/79 mmHg, pulse 69 bpm, respiratory rate 19, oxygen saturation 92% on room air. Laboratory data: complete blood count (CBC) with normal white blood cell count, hemoglobin, and platelets; sodium 133 mmol/L, potassium 4.8 mmol/L, bicarbonate 21 mmol/L, anion gap 21.8, blood glucose 82 mg/dL, alkaline phosphatase 123 U/L, total bilirubin normal, aspartate aminotransferase (AST) and alanine aminotransferase (ALT) normal; urinalysis unremarkable with 0?4 hyaline casts; urine drug screen positive for marijuana. Chest X-ray with incidental atherosclerosis. ED medications: aspirin 324 mg administered. Neurology was consulted; recommendation for inpatient post-stroke hospitalization. Not a candidate for acute intervention. Discussion held regarding evaluation for atrial fibrillation with monitoring and antithrombotic strategy; plan details documented below. Review of Systems Const: Denies: fever(s), chills, body aches or malaise ENMT: Denies: throat pain Card: Denies: chest pain, edema, pre-syncope or dyspnea on exertion Resp: Denies: dyspnea, productive cough, change in phlegm color or hemoptysis GI: Denies: abdominal pain, nausea, vomiting, diarrhea, constipation, hematochezia or melena : Denies: flank pain, urinary frequency or hematuria Musc: Denies: back pain, joint swelling or joint redness Skin/Breast: Denies: rash or new lesions Neuro: Reports: numbness in extremities, weakness in extremities, Slurred speech present and difficulty communicating thoughts; Denies: headache(s) or confusion Medications/Allergies Home Medications ?Medication ?Instructions ?Recorded ?Confirmed ?Last Taken ?Type diltiazem HCl 240 mg capsule,24 240 mg PO QAM 11/24/19 07/29/25 07/28/25 History hr,extended release montelukast 10 mg tablet 10 mg PO DAILY 11/24/19 07/29/25 07/28/25 History oxycodone-acetaminophen 5 mg-325 1 tab PO Q4H PRN Pain, Severe 11/24/19 07/29/25 04/29/22 History mg tablet spironolactone 25 mg tablet 25 mg PO DAILY 11/24/19 07/29/25 07/28/25 History cholecalciferol (vitamin D3) 25 25 mcg PO DAILY 12/08/19 07/29/25 07/28/25 History mcg (1,000 unit) capsule fluticasone propionate 50 2 spray intranasal DAILY 05/25/20 07/29/25 07/28/25 History mcg/actuation nasal spray,suspension (Flonase Allergy Relief) biotin 1,000 mcg chewable tablet 3,000 mcg PO DAILY 07/22/20 07/29/25 07/28/25 History albuterol sulfate 90 mcg/actuation 2 puff inhalation Q6H PRN 12/20/23 07/29/25 Unknown History aerosol inhaler Shortness Of Breath fluticasone fur. 200 mcg-umeclid 1 inh inhalation DAILY #180 ea 05/05/24 07/29/25 07/28/25 Rx 62.5 mcg-vilant 25 mcg inhalat.powder (Trelegy Ellipta) prednisone 20 mg tablet See Rx Instructions PO .COMPLEX 04/16/25 07/29/25 Unknown Rx PRN joint pain flare #30 tabs prednisone 5 mg tablet 5 mg PO DAILY #90 tabs 04/16/25 07/29/25 07/28/25 Rx tofacitinib 5 mg tablet (Xeljanz) 5 mg PO BID #60 tabs 04/16/25 07/29/25 07/28/25 Rx isosorbide mononitrate 30 mg 15 mg (1/2 x 30 mg) PO DAILY #45 07/01/25 07/29/25 07/28/25 Rx tablet,extended release 24 hr tabs cetirizine 10 mg tablet (Zyrtec) 10 mg PO DAILY PRN allergies 07/06/25 07/29/25 07/28/25 History citalopram 40 mg tablet 40 mg PO DAILY 07/06/25 07/29/25 07/28/25 History cyanocobalamin (vitamin B-12) 1,000 mcg PO DAILY 07/06/25 07/29/25 07/28/25 History 1,000 mcg capsule metformin 500 mg tablet 1,000 mg PO DAILY 07/06/25 07/29/25 07/28/25 History mirabegron 25 mg tablet,extended 25 mg PO DAILY 07/06/25 07/29/25 07/28/25 History release 24 hr (Myrbetriq) aspirin 81 mg tablet,delayed 81 mg PO DAILY 07/29/25 07/29/25 07/28/25 History release desvenlafaxine succinate 50 mg 50 mg PO DAILY 07/29/25 07/29/25 07/28/25 History tablet,extended release 24 hr epinephrine 0.3 mg/0.3 mL See Rx Instructions .Route .COMPLEX 07/29/25 07/29/25 Unknown History injection, auto-injector levothyroxine 112 mcg tablet 112 mcg PO DAILY 07/29/25 07/29/25 07/28/25 History lisinopril 10 mg tablet 10 mg PO DAILY 07/29/25 07/29/25 07/28/25 History pantoprazole 40 mg tablet,delayed 40 mg PO QAM 07/29/25 07/29/25 07/28/25 History release tramadol 50 mg tablet 50 - 100 mg PO Q8H PRN pain 07/29/25 07/29/25 07/28/25 History Allergies Allergy/AdvReac Type Severity Reaction Status Date / Time coconut oil Allergy Severe ALGY-Anaphy Verified 07/20/25 08:24 laxis Penicillins Allergy Severe ALGY-Rash Verified 07/20/25 08:24 prochlorperazine (From AdvReac Severe ADR-Halluci Verified 07/20/25 08:24 Compazine) nating gabapentin AdvReac Intermediate balance Verified 07/20/25 08:24 issues PFSH Acute PFSH: Medical History Mitral valve prolapse CAD (coronary artery disease) TIA (transient ischemic attack) Migraine Immunization counseling High risk medication use Seronegative rheumatoid arthritis of both hands Hypoxemia Osteoarthritis, hand Sleep apnea CPAP (continuous positive airway pressure) dependence Hypertension Autoimmune disorder Coronary atherosclerosis Diabetes mellitus Anxiety CVA (cerebral vascular accident) Conjunctivitis Sinusitis Allergic rhinitis Polyosteoarthritis, unspecified Recurrent falls Immunosuppression Medication monitoring encounter Fibromyalgia Rotator cuff tear arthropathy of both shoulders Osteoarthritis of knees, bilateral Sjogrens syndrome Sjogren's disease Surgical History H/O removal of cyst Hx of tubal ligation Hx of LASIK History of cholecystectomy Hx of knee surgery H/O rotator cuff surgery Family History Father Stroke CAD (coronary artery disease) Mother Parkinson disease Other Dementia Diabetes Thyroid disease Social History Smoking and tobacco/nicotine status: never used tobacco/nicotine Alcohol intake: current Alcohol intake frequency: holidays/special occasions only Substance/Drug Use: never Lives independently: Yes Household members: spouse Housing: House Marital status: Number of children: 4 Current occupational status: retired and disabled Do you think of yourself as: Straight/Heterosexual Current gender identity: Female Vitals/I&O/Wt Last Vital Signs Pulse 69 07/29/25 10:39 Resp 19 H 07/29/25 10:39 BP 127/79 07/29/25 10:39 Pulse Ox 92 07/29/25 10:39 O2 Del Method Room Air 07/29/25 08:58 Weight last 48 hrs Weight 92.533 kg Physical Exam Narrative: Accompanied by her . Const: COMMON NORMALS: patient oriented x3 and alert GENERAL APPEARANCE: cooperative ORIENTATION/CONSCIOUSNESS: Yes awake HENMT: COMMON NORMALS: oropharynx normal Neck/C-Spine: COMMON NORMALS: no JVD Resp: COMMON NORMALS: normal respiratory effort and clear to auscultation bilaterally AUSCULTATION: clear to auscultation bilaterally Cardio: COMMON NORMALS: no JVD, regular rhythm, S1 normal heart sound present, S2 normal heart sound present and No murmurs present (Cardio) RHYTHM: regular rhythm HEART SOUNDS: S1 normal heart sound present and S2 normal heart sound present GI: COMMON NORMALS: Normal to inspection, nondistended, normoactive bowel sounds present, Soft to palpation and non-tender PALPATION: Yes Soft to palpation Extremity: COMMON NORMALS: no joint enlargement and no pedal edema Neuro: COMMON NORMALS: patient oriented x3 and moves all extremities SENSORIUM/ORIENTATION: Yes alert OTHER: She is awake, alert, follows directions readily, minimal if any aphasia I do not detect dysarthria. Right-sided facial droop appears to have resolved. No difficulty with horizontal tracking. FNF normal. Visual biggs symmetrical, no visual extinction. She reports some mild subjective numbness on the right side of her mouth/upper lip. Minimal if any droop in right upper extremity, minimal droop right lower extremity, but weaker than the left side. Sensation symmetrical, no sensory extinction. Skin: COMMON NORMALS: no rashes or lesions noted GENERAL SKIN EXAM: no rashes or lesions noted Data 07/29/25 07:51 07/29/25 07:51 A&P Assessment and plan 1. CVA (cerebral vascular accident): Acute neurologic deficits concerning for small ischemic stroke : Presentation with slurred speech, right facial numbness/droop, right-sided weakness; CT head without acute findings; CTA neck without large-vessel occlusion; neurology recommends post-stroke hospitalization; not a candidate for acute intervention. Reviewed vitals, CBC, INR, CMP, UA, UDS, EKG, antibiotics per surgeon sinus rhythm, pending official read, reviewed chest x-ray, head CT, head and neck CTA, ED provider note, discussed with ED provider. - Admit for post-stroke hospitalization/monitoring (per neurology recommendation). - Increase aspirin dose to 162 mg while inpatient; after hospitalization, resume aspirin 81 mg daily. - Start clopidogrel (Plavix) for 21 days in combination with aspirin, then continue aspirin alone (based on ABCD score discussion). Monitor for risk of bleeding, discussed with her and her . Knows to seek medical attention in case of concerning or difficult to control bleeding. Reassess blood counts. - Intolerant of statin after trying multiple medications in the past. Discussed with her follow-up with primary provider for prior authorization for PCSK9 inhibitor. - Hold Xeljanz as per discussion due to increasing risk of CVA until follow-up with rheumatology and further discussion, consideration of alternatives. Similarly hold mirabegron due to increasing risk of CVA. - Order inpatient echocardiogram (ultrasound of the heart) to evaluate cardiac sources of emboli, including possible interatrial shunt. -Permissive hypertension - Telemetry monitoring while in the hospital. Cardiac monitoring after discharge to assess for atrial fibrillation with report of intermittent palpitations. - Arrange inpatient evaluations: physical therapy, occupational therapy, and speech therapy to assess mobility, fall risk, and swallowing. - Arrange outpatient neurology follow-up after discharge. Plan: Hypertension : Known history; ED blood pressure acceptable. Per hypertension for now. Hold blood pressure medications. Monitor blood pressures. - Monitor blood pressures while inpatient. Diabetes mellitus : Reports pre diabetes; ED glucose 82 mg/dL. Check A1c. - Check diabetes status while inpatient ( check on your diabetes in terms of the risk ). Seronegative rheumatoid arthritis : Active condition; on tofacitinib. - Hold tofacitinib until discussion with rheumatology and/or primary doctor due to stroke risk (patient to resume only after guidance). Sj?gren syndrome : Known autoimmune condition noted as a vascular risk factor. History of transient ischemic attacks (TIAs) : Prior episodes of left-sided numbness associated with migraines. Possible cardiac arrhythmia/palpitations : Reports intermittent slow/fast and irregular heart rates; current ECG sinus rhythm. - Continuous cardiac monitoring while inpatient. - Arrange outpatient cardiac rhythm monitoring for ~21 days after discharge to evaluate for atrial fibrillation; follow up with primary doctor for results. Dyslipidemia with statin intolerance : Patient reports intolerance to multiple statins; not currently on cholesterol medication. - Do not start statin due to intolerance. - Advise discussing prior authorization for a PCSK9 inhibitor with primary doctor. Local IV site irritation after CT angiogram : Irritation/blistering at IV site used for contrast; likely local reaction. Discussed with her and her : - Elevate affected limb; use warm compress. - Avoid blood pressure cuff on the affected side. Follow-up : Post-hospital care and coordination. - Follow up with primary care for rhythm monitor results and cholesterol therapy discussion (PCSK9 inhibitor). - Follow up with neurology in the office after discharge. PDMP PDMP Reviewed: Not Reviewed Attestations Medical Necessity Statement*: Place in observation for additional assessment and management after acute CVA in a lady with underlying risk factors. and High MDM includes amount and/or complexity of data reviewed/ordered [ previous or external records, resulted lab(s)/test(s), ordered lab(s)/test(s), independent test interpretation and other healthcare professional discussion] and described risk of complication, morbidity or mortality of management as documented Diagnoses CVA (cerebral vascular accident) I63.9
--- NOTE | 2025-07-29 12:49 | USCV_ITS ---
Sol Wall Age: 75 Gender: F : 1950 Exam Date: 07/29/2025 13:04 Ordering Phys: Jesus Alberto Walton MD Technologist: Exam Location: [facility] Indication: cva BP: 133 / 66 HR: 86 Rhythm: Sinus Technical Quality: Adequate MEASUREMENTS (Male / Female) Normal Values 2D ECHO LV Diastolic Diameter PLAX 4.7 cm 4.2 - 5.9 / 3.9 - 5.3 cm IVS Diastolic Thickness 1.1 cm 0.6 - 1.0 / 0.6 - 0.9 cm IVS Systolic Thickness 1.9 cm LVPW Diastolic Thickness 1.3 cm 0.6 - 1.0 / 0.6 - 0.9 cm LVPW Systolic Thickness 1.7 cm LVOT Diameter 2.1 cm LV Ejection Fraction 2D Teich 63.9 % LV Ejection Fraction MOD 4C 69.0 % LV Ejection Fraction MOD 2C 59.5 % LV Ejection Fraction 2C AL 59.3 % LA Diameter 4.2 cm RA Systolic Volume 4C AL 37.0 ml RA Systolic Volume 4C MOD 34.4 ml Aorta at Sinotubular Diameter 2.8 cm IVC Diameter 2.1 cm M-MODE LA Ao Ratio MM 1.2 AV Cusp Separation MM 2.2 cm DOPPLER AV Peak Velocity 207.0 cm/s LVOT Peak Velocity 108.0 cm/s AV Area Cont Eq vti 1.6 cm squared AV Area Cont Eq pk 1.7 cm squared MV Peak Velocity 140.0 cm/s MV Area PHT 6.1 cm squared Mitral E to A Ratio 0.7 TR Peak Velocity 246.0 cm/s TR Peak Gradient 24.2 mmHg PV Peak Velocity 117.0 cm/s FINDINGS Left Ventricle Normal left ventricular size, systolic function and wall thickness, with no regional wall motion abnormalities. Left ventricular ejection fraction is estimated at 60 %. Grade I/IV diastolic dysfunction (abnormal relaxation filling pattern), normal to mildly elevated filling pressures. Right Ventricle The right ventricle is normal in size and function. Right Atrium The right atrium is normal in size. Left Atrium The left atrium is normal in size. Mitral Valve Moderately thickened mitral valve. Mild mitral annular calcification. Aortic Valve Moderate aortic valve calcification. No aortic valve stenosis. No aortic valve regurgitation. Tricuspid Valve Structurally normal tricuspid valve without significant stenosis or regurgitation. Pulmonary artery systolic pressure is normal. Pulmonic Valve Structurally normal pulmonic valve without significant stenosis. There is no pulmonic regurgitation. Pericardium Normal pericardium without effusion. Aorta Normal ascending aorta dimension. IVC The inferior vena cava appears normal. CONCLUSIONS Normal left ventricular size, systolic function and wall thickness, with no regional wall motion abnormalities. Left ventricular ejection fraction is estimated at 60 %. Grade I/IV diastolic dysfunction (abnormal relaxation filling pattern), normal to mildly elevated filling pressures. Moderately thickened mitral valve. Mild mitral annular calcification. There is no pericardial effusion. Right atrial pressure is around 5 mm of mercury. Kristi Andrea MD (Electronically Signed) Final Date: 30 July 2025 09:29 S
--- NOTE | 2025-07-29 18:47 | PC.NURSE ---
this nurse attempted to give report to nurse and transport after S/C, MS requesting visiting teacher nurse to give report d/t receiving nurse not available at this time.
--- NOTE | 2025-07-29 20:39 | PC.RESP ---
CPAP PT STATED SHE WOULD LIKE TO USE OXYGEN AT NIGHT INSTEAD OF CPAP. INSTUCTED PT TO CALL IF SHE CHANGED HER MIND AND CPAP WOULD BE PROVIDED.
[2025-07-30 01:00] VITALS: BP 137/79; PULSE 76; RESP 16; TEMP 36.8; O2SAT 96
[2025-07-30 04:48] LABS: Cholesterol 216 mg/dL (0-200); HDL Cholesterol 63 mg/dL (60-100); Triglycerides 162 mg/dL (0-150)
[2025-07-30 05:00] VITALS: BP 150/68; PULSE 81; RESP 16; TEMP 36.9; O2SAT 98
[2025-07-30 05:07] LABS: Estmated Average Glucose 131; Hemoglobin A1C 6.2 % (4.0-6.0)
[2025-07-30 06:00] VITALS: PULSE 81
--- OUTSIDE RECORDS SUMMARY | 2025-07-30 06:40 | XMS_ITS | Clinical Summary ---
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
--- OUTSIDE RECORDS SUMMARY | 2025-07-30 06:40 | XMS_ITS | Encounter Summary ---
Author Organization [facility] Address [address] [place] [address] Care Team Providers Care Furs Salesperson Name Role Phone Unavailable Primary Care Provider Unavailabl e Encounter Details Date Type Department Care Team (Latest Contact Info) Description 09/02/1998 Outpatient Historical [facility] Rheumatology- [place] [address] [place] [phone] Ajay Morris MD NO ADDRESS ON FILE Sicca syndrome (Primary Dx); Myalgia and myositis, unspecified Social History Tobacco Use Types Packs/Day Years Used Date Smoking Tobacco: Never Assessed Comments Unknown Sex and Gender Information Value Date Recorded Sex Assigned at Not on file 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
--- OUTSIDE RECORDS SUMMARY | 2025-07-30 06:40 | XMS_ITS | Clinical Summary ---
Author Organization [facility] Address [address] Attn: [place] [address] Care Team Providers Care Bartenders Name Role Phone Unavailable Primary Care Provider Unavailabl e Social History Tobacco Use Types Packs/Day Years Used Date Smoking Tobacco: Never Assessed Comments Unknown Sex and Gender Information Value Date Recorded Sex Assigned at Not on file Legal Sex Female 3:17 PM PUBLIC SAF[employer]Y POLICE Gender Identity Not on file Sexual Orientation Not on file Plan of Treatment Upcoming Encounters Date Type Department Care Team (Late st Contact Info) Description 08/26/2025 9:30 AM CDT Office Visit [facility]mon[facility] [address] [place] [phone] Nelly Helm MD [address] [place] [phone] Health Maintenance Due Date Last Done Comments [...] 1-dose 75+ series) 2026 Insurance [employer] O DSNP
--- OUTSIDE RECORDS SUMMARY | 2025-07-30 06:40 | XMS_ITS | Encounter Summary ---
Author Organization [facility] Address [address] [place] [address] Care Team Providers Care Salvage Clerk Name Role Phone Unavailable Primary Care Provider Unavailabl e Encounter Details Date Type Department Care Team (Latest Contact Info) Description 05/12/1998 Outpatient Historical [facility] Rheumatology- [facility] [place] [address] [place] [phone] Ajay Morris MD NO ADDRESS ON FILE Sicca syndrome (Primary Dx); Myalgia and myositis, unspecified Social History Tobacco Use Types Packs/Day Years Used Date Smoking Tobacco: Never Assessed Comments Unknown Sex and Gender Information Value Date Recorded Sex Assigned at Not on file 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
--- OUTSIDE RECORDS SUMMARY | 2025-07-30 06:40 | XMS_ITS | Encounter Summary ---
Author Organization [facility] Address [address] [place] [address] Care Team Providers Care Finger Buffs Assembler Name Role Phone Unavailable Primary Care Provider Unavailabl e Encounter Details Date Type Department Care Team (Latest Contact Info) Description 06/03/1998 Outpatient Historical [facility] Rheumatology- [place] [address] [place] [phone] Ajay Morris MD NO ADDRESS ON FILE Sicca syndrome (Primary Dx); Myalgia and myositis, unspecified Social History Tobacco Use Types Packs/Day Years Used Date Smoking Tobacco: Never Assessed Comments Unknown Sex and Gender Information Value Date Recorded Sex Assigned at Not on file Legal Sex 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
[2025-07-30 07:31] VITALS: BP 128/67; PULSE 83; RESP 17; TEMP 36.8; O2SAT 93
[2025-07-30 08:38] VITALS: PULSE 87; RESP 18; O2SAT 95
[2025-07-30] MEDS: fluticasone nasal spray 16gm Btl 2 SPRAY INTRANASAL (08:46)
--- NOTE | 2025-07-30 09:07 | P.DS_ITS ---
Discharge Providers Date of Admission: 07/29/25 13:00 Date of Discharge: July 30, 2025 Attending Provider at Admission: Jesus Alberto Walton Attending Provider at Discharge: Jesus Alberto Walton Primary Care Provider: Pool Arriaga MD Diagnoses at Discharge Discharge Diagnosis 1. CVA (cerebral vascular accident): Reason for Visit Reason for Visit: rt side numbness Brief History: Sol Wall is a 75 year old patient with seronegative rheumatoid arthritis, hypertension, diabetes mellitus, allergic rhinitis, and Sj?gren syndrome who went to bed without issues around 9 p.m., awoke around 3 a.m. to use the bathroom without symptoms, and on awakening around 7 a.m. noted slurred speech, right facial numbness with slight droop, and right arm and leg weakness/heaviness (able to ambulate). Symptoms have improved; reports residual numbness around the mouth and nose. Reports prior transient ischemic attacks (TIAs) characterized by left-sided numbness previously associated with migraines; remote history of severe migraines, none recently. Denies fever, chills, sore throat, runny nose, cough, vomiting, diarrhea, or rashes. Emergency department (ED) workup: CT head showed moderate chronic white matter microvascular ischemic disease with no acute intracranial abnormality; age- appropriate supratentorial and infratentorial atrophy. CT angiogram of the neck without large-vessel obstruction; no carotid disease. Electrocardiogram (ECG) interpreted at bedside as sinus rhythm (official read pending). Vitals in ED: blood pressure 127/79 mmHg, pulse 69 bpm, respiratory rate 19, oxygen saturation 92% on room air. Laboratory data: complete blood count (CBC) with normal white blood cell count, hemoglobin, and platelets; sodium 133 mmol/L, potassium 4.8 mmol/L, bicarbonate 21 mmol/L, anion gap 21.8, blood glucose 82 mg/dL, alkaline phosphatase 123 U/L, total bilirubin normal, aspartate aminotransferase (AST) and alanine aminotransferase (ALT) normal; urinalysis unremarkable with 0?4 hyaline casts; urine drug screen positive for marijuana. Chest X-ray with incidental atherosclerosis. ED medications: aspirin 324 mg administered. Neurology was consulted; recommendation for inpatient post-stroke hospitalization. Not a candidate for acute intervention. Discussion held regarding evaluation for atrial fibrillation with monitoring and antithrombotic strategy; plan details documented below. Hospital Course Hospital Course She was admitted and monitored on telemetry, aspirin was continued she was started on Plavix which she has prescription with her should continue for 21 days. She has been intolerant of statin and will follow-up with primary provider for discussion of arrangements for PCSK9 inhibitor. Xeljanz and Myrbetriq were held due to increased risk of stroke, consider whether these medications may be safe to resume or consider alternatives. Permissive hypertension was maintained. She underwent additional evaluation with echocardiogram bubble study results of which are pending. A1c and lipid profile were obtained. Noted some worsening in her prediabetes A1c up to 6.2%. CT angiogram head and neck did not show any significant stenosis or abnormality. This morning she is doing much better her symptoms for the most part have significantly improved/resolved. She states was seen by all therapies and did well. She is requesting to be discharged home. Discharge crab backer is requested for her to further assess for any paroxysmal atrial fibrillation due to reports of intermittent palpitations. Physical Exam Const: COMMON NORMALS: patient oriented x3 and alert GENERAL APPEARANCE: cooperative ORIENTATION/CONSCIOUSNESS: Yes awake HENMT: COMMON NORMALS: oropharynx normal Neck/C-Spine: COMMON NORMALS: no JVD Resp: COMMON NORMALS: normal respiratory effort and clear to auscultation bilaterally AUSCULTATION: clear to auscultation bilaterally Cardio: COMMON NORMALS: no JVD, regular rhythm, S1 normal heart sound present, S2 normal heart sound present and No murmurs present (Cardio) RHYTHM: regular rhythm HEART SOUNDS: S1 normal heart sound present and S2 normal heart sound present GI: COMMON NORMALS: Normal to inspection, nondistended, normoactive bowel sounds present, Soft to palpation and non-tender PALPATION: Yes Soft to palpation Extremity: COMMON NORMALS: no joint enlargement and no pedal edema Neuro: COMMON NORMALS: patient oriented x3 and moves all extremities SENSORIUM/ORIENTATION: Yes alert OTHER: Awake alert, no trouble tracking, no facial droop, no aphasia or dysarthria. Visual biggs full to confrontation, no visual extinction. Sensation symmetrical, no extinction. No upper or lower extremity drift. Skin: COMMON NORMALS: no rashes or lesions noted GENERAL SKIN EXAM: no rashes or lesions noted Discharge Data Studies Completed and Pending Completed Studies During Hospitalization Category Date Time Status CT angio headneck* [id number] Stat Cat Scan 07/29/25 07:[address] head thrombolytic [id number] Stat Cat Scan 07/29/25 07:47 Completed XR chest 1V portable [id number] Stat Exams 07/29/25 07:47 Completed Pending at discharge Category Date Time Status CV. echo w/w bubble cont [id number] Routine Ultrasound 07/29/25 12:49 Taken Radiology Impressions Chest X-Ray 07/29/25 07:47 Impression: Atherosclerosis. Head CT 07/29/25 07:47 IMPRESSION: 1. Age appropriate supratentorial and infratentorial atrophy. 2. Moderate chronic white matter microvascular ischemic disease. 3. No acute intracranial abnormality identified. ASSESSMENT: ASPECTS ([place] Stroke Program Early CT Score) is 10. ADDENDUM: 07/29/25 0806 THIS REPORT CONTAINS FINDINGS THAT MAY BE CRITICAL TO PATIENT CARE. The findings were verbally communicated by me to DR. FARRUKH LEE via telephone conference at 8:05 AM CDT on 07/29/2025. The findings were acknowledged and understood. Head/Neck CTA 07/29/25 07:47 IMPRESSION: No acute intracranial vascular abnormality identified. IMPRESSION: No acute extracranial vascular abnormality identified. REFERENCES: NASCET CRITERIA. The degree of stenosis in the cervical segment of the internal carotid artery is based on NASCET criteria. Normal is no stenosis. Mild is less than 50% stenosis. Moderate is 50-69% stenosis. Severe is 70% to 99% stenosis. Total occlusion is no detectable patent lumen. Laboratory Results WBC 10.81 10^3/uL (3.29-11.43) 07/29/25 07:51 RBC 4.70 10^6/uL (3.85-5.65) 07/29/25 07:51 Hgb 12.10 g/dL (11.27-16.99) 07/29/25 07:51 Hct 38.9 % (36-47) 07/29/25 07:51 MCV 82.8 fl (85-98) L 07/29/25 07:51 MCH 25.7 pg (27-33) L 07/29/25 07:51 MCHC 31.1 g/dL (30-55) 07/29/25 07:51 RDW 14.3 % (12.1-15.1) 07/29/25 07:51 Plt Count 469 10^3/cmm (157-399) H 07/29/25 07:51 MPV 9.2 fL (7.4-10.4) 07/29/25 07:51 Neut % (Auto) 57.7 % 07/29/25 07:51 Lymph % (Auto) 30.6 % 07/29/25 07:51 Nolan % (Auto) 8.5 % 07/29/25 07:51 Eos % (Auto) 1.0 % 07/29/25 07:51 Baso % (Auto) 0.3 % 07/29/25 07:51 Neut # (Auto) 6.24 10^3/uL (1.8-7.7) 07/29/25 07:51 Lymph # (Auto) 3.3 10^3/uL (0.8-4.8) 07/29/25 07:51 Nolan # (Auto) 0.9 10^3/uL (0.2-0.9) 07/29/25 07:51 Eos # (Auto) 0.1 10^3/uL (0.0-0.8) 07/29/25 07:51 Baso # (Auto) 0.0 10^3/uL (0.0-0.1) 07/29/25 07:51 Nucleated RBC % (auto) 0 % 07/29/25 07:51 Nucleated RBCs # 0.0 /100WBC 07/29/25 07:51 PT 12.50 SECONDS (12.1-14.9) 07/29/25 07:51 INR 0.87 (0.8-1.2) 07/29/25 07:51 APTT 20.5 SECONDS (23.9-36.7) L 07/29/25 07:51 Sodium 133 mmol/L (136-145) L 07/29/25 07:51 Potassium 4.8 mmol/L (3.5-5.1) 07/29/25 07:51 Chloride 95 mmol/L (98-107) L 07/29/25 07:51 Carbon Dioxide 21 mmol/L (22-29) L 07/29/25 07:51 Anion Gap 21.8 (5-19) H 07/29/25 07:51 BUN 7 mg/dL (8-23) L 07/29/25 07:51 Creatinine 0.6 mg/dL (0.5-0.9) 07/29/25 07:51 GFR Calculation Not Reportable 07/29/25 07:51 Glucose 82 mg/dL (65-115) 07/29/25 07:51 POC Glucose 77 mg/dL (70-110) 07/29/25 07:47 Estimat Average Glucose 131 07/30/25 02:35 Hemoglobin A1c 6.2 % (4.0-6.0) H 07/30/25 02:35 Calculated Osmolality 273 mOsm/kg (285-295) L 07/29/25 07:51 Calcium 9.6 mg/dL (8.5-10.5) 07/29/25 07:51 Total Bilirubin 0.2 mg/dL (0.15-1.2) 07/29/25 07:51 AST 18 U/L (0-32) 07/29/25 07:51 ALT 11 U/L (0-33) 07/29/25 07:51 Alkaline Phosphatase 123 U/L (35-105) H 07/29/25 07:51 Total Protein 7.2 g/dL (6.6-8.7) 07/29/25 07:51 Albumin 4.1 g/dL (3.5-5.2) 07/29/25 07:51 Globulin 3.1 g/dL (1.3-4.6) 07/29/25 07:51 Triglycerides 162 mg/dL (0-150) H 07/30/25 02:35 Cholesterol 216 mg/dL (0-200) H 07/30/25 02:35 LDL Cholesterol, Calc 121 mg/dL (50-129) 07/30/25 02:35 HDL Cholesterol 63 mg/dL (60-100) 07/30/25 02:35 LDL/HDL Ratio 1.92 RATIO (0.00-3.22) 07/30/25 02:35 Cholesterol/HDL Ratio 3.43 mg/dL (0.0-4.40) 07/30/25 02:35 Urine Color Yellow (Yellow) 07/29/25 08:31 Urine Appearance Clear (CLEAR) 07/29/25 08:31 Urine pH 6.5 (5-7) 07/29/25 08:31 Ur Specific [place] 1.037 (1.005-1.030) H 07/29/25 08:31 Urine Protein Negative (Negative) 07/29/25 08:31 Urine Glucose (UA) Negative (Normal) 07/29/25 08:31 Urine Ketones Negative (Negative) 07/29/25 08:31 Urine Blood 1+ (Negative) A 07/29/25 08:31 Urine Nitrate Negative (Negative) 07/29/25 08:31 Urine Bilirubin Negative (Negative) 07/29/25 08:31 Urine Urobilinogen 1.0 mg/dL (Negative) 07/29/25 08:31 Ur Leukocyte Esterase Negative (Negative) 07/29/25 08:31 Urine RBC 0-2 /hpf (0-2) 07/29/25 08:31 Urine WBC 0-5 /hpf (0-5) 07/29/25 08:31 Ur Squamous Epith Cells 0-5 /hpf (0-5) 07/29/25 08:31 Amorphous Sediment Not Reportable 07/29/25 08:31 Urine Bacteria None seen /hpf (NONE) 07/29/25 08:31 Hyaline Casts 0-4 /lpf H 07/29/25 08:31 Urine Opiates Screen Negative ng/mL (Negative) 07/29/25 08:31 Ur Barbiturates Screen Negative ng/mL (Negative) 07/29/25 08:31 Ur Phencyclidine Scrn Negative ng/mL (Negative) 07/29/25 08:31 Ur Amphetamines Screen Negative ng/mL (Negative) 07/29/25 08:31 U Benzodiazepines Scrn Negative ng/mL (Negative) 07/29/25 08:31 Urine Cocaine Screen Negative ng/mL (Negative) 07/29/25 08:31 U Marijuana (THC) Screen Positive ng/mL (Negative) H 07/29/25 08:31 Vitals Last Vital Signs Temp 98.2 F 07/30/25 07:31 Pulse 87 07/30/25 08:38 Resp 18 07/30/25 08:38 BP 128/67 07/30/25 07:31 Pulse Ox 95 07/30/25 08:38 O2 Del Method Nasal Cannula 07/30/25 08:38 O2 Flow Rate 2 07/30/25 08:38 Discharge Plan Discharge Patient Disposition: Home Condition: Stable Prescriptions: New clopidogrel 75 mg Tablet 75 mg PO DAILY Qty: 21 0RF Continued cholecalciferol (vitamin D3) 1,000 unit capsule 25 mcg PO DAILY fluticasone propionate [Flonase Allergy Relief] 50 mcg/actuation sp ray,suspension 2 spray INTRANASAL DAILY Rx Instructions: administer into each nostril oxycodone-acetaminophen 5-325 mg tablet 1 tab PO Q4H PRN (Reason: Pain, Severe) spironolactone 25 mg tablet 25 mg PO DAILY diltiazem HCl 240 mg capsule,extended release 24 hr 240 mg PO QAM montelukast 10 mg tablet 10 mg PO DAILY metformin 500 mg tablet 1,000 mg PO DAILY citalopram 40 mg tablet 40 mg PO DAILY cetirizine [Zyrtec] 10 mg tablet 10 mg PO DAILY PRN (Reason: allergies) cyanocobalamin (vitamin B-12) 1,000 mcg capsule 1,000 mcg PO DAILY prednisone 20 mg tablet See Rx Instructions PO .COMPLEX PRN (Reason: joint pain flare) Qty: 30 1RF Rx Instructions: Take 2 tablets by mouth daily for 7 days as needed for arthritis flare. prednisone 5 mg tablet 5 mg PO DAILY Qty: 90 1RF albuterol sulfate 90 mcg/actuation HFA aerosol inhaler 2 puff inhalation Q6H PRN (Reason: Shortness Of Breath) Trelegy Ellipta 200-62.5-25 mcg blister with device 1 inh inhalation DAILY Qty: 180 6RF isosorbide mononitrate 30 mg tablet extended release 24 hr 15 mg PO DAILY Qty: 45 3RF biotin 1,000 mcg Tablet,Chewable 3,000 mcg PO DAILY aspirin 81 mg Tablet,Delayed Release (Dr/Ec) 81 mg PO DAILY epinephrine 0.3 mg/0.3 mL auto-injector See Rx Instructions .ROUTE .COMPLEX Rx Instructions: Use per package instructions. levothyroxine 112 mcg tablet 112 mcg PO DAILY desvenlafaxine succinate 50 mg tablet extended release 24 hr 50 mg PO DAILY tramadol 50 mg tablet 50 - 100 mg PO Q8H PRN (Reason: pain) pantoprazole 40 mg tablet,delayed release (DR/EC) 40 mg PO QAM Rx Instructions: 30 minutes before meal lisinopril 10 mg tablet 10 mg PO DAILY Discontinued mirabegron [Myrbetriq] 25 mg tablet extended release 24 hr 25 mg PO DAILY Xeljanz 5 mg tablet 5 mg PO BID Qty: 60 5RF Discharge Order = DC NOW: Discharge Order (Routine); Ordered 07/30/25 Ordered By: Jesus Alberto Walton Other Ambulatory Orders: MCT/Event Monitor 21 Days (Routine) Timeframe: 1 Day Facility: [facility] - Location: Radiology Ordered By: Jesus Alberto Walton Referrals: Sylvia Thompson MD [Physician, Neurology] - 2 weeks Referral Note: Pool Bland MD [Primary Care Provider, Family Practice] - 4-7 days Discharge Diet: Cardiac and Diabetic Patient Instructions: Clopidogrel (By mouth), Opioid Safety, Stroke Stoplight, Patient Portal & Samreen Instructions Activity Restrictions/Additional Instructions: Follow-up with your primary doctor and with neurology for reassessment after suspected stroke. Continue aspirin and Plavix added for 21 days as per discussion. To help reduce risk of recurrent strokes discuss with your primary provider prior authorization for a PCSK9 inhibitor for continued cholesterol management. Additionally please stop Xeljanz and Myrbetriq due to risk of stroke at this time as discussed, follow-up with prescribing providers as well as with neurology for consideration of further these may be resumed. Continue to monitor your blood pressures and save values to bring to your appointment. Continue to optimize prediabetes, as discussed A1c was 6.2. Follow-up to be set up for crab backer for 21 days send for follow-up with your primary doctor for results. Echocardiogram with bubble study has been obtained as well as results are not yet available, follow-up with your primary doctor to discuss the results. Have your primary doctor reassessed the local irritation on the right arm after IV site. Discharge Attestations Time Spent in Discharge Care*: greater than 30 min Quality Metrics Clinical Quality Measures [ Cerebrovascular Accident { Contraindication to Antithrombotic: None; antithrombotic prescribed; Contraindication to Anticoagulation: Overlap treatment not indicated; Contraindication to Statin: Drug intolerance;}] Coding Level of Care Code Acute Code for [facility] Fwd Diagnoses CVA (cerebral vascular accident) I63.9
--- NOTE | 2025-07-30 10:14 | PC.NURSE ---
tax collection coordinator rounds at 0930- gave patient and stroke education book. Patient's face looks more symmetrical today and patient states the numbness is cone and all sensation and strengths have returned to baseline. We went through the stroke book together. Discussed risk factors, preventions, symptoms, and what to do if she has symptoms again. Gave her and her my contact info.
[2025-07-30 10:42] VITALS: BP 128/67; PULSE 87; RESP 18; TEMP 36.8; O2SAT 95
--- NOTE | 2025-07-30 12:31 | PC.OT ---
OT EVALUATION UNABLE TO BE COMPLETED PATIENT HAS ALREADY BEEN D/C
== END 2025-07-30 10:44 | disposition home or self-care (01) ==
LOC: ER 08:55 → ER IP 16:46 → MEDSURG 22:54 → ER IP 07-30 06:39 → MEDSURG 07-30 06:39
PROVIDERS: Admitting Provider Internal Medicine; Emergency Provider Emergency Medicine; PCP Family Medicine; Visit Provider Internal Medicine
DX: I63.9 Cerebral infarction, unspecified (principal); R29.704 NIHSS score 4; M06.9 Rheumatoid arthritis, unspecified; I10 Essential (primary) hypertension; E11.9 Type 2 diabetes mellitus without complications; M35.00 Sjogren syndrome, unspecified; Z79.84 Long term (current) use of oral hypoglycemic drugs; Z79.82 Long term (current) use of aspirin; K21.9 Gastro-esophageal reflux disease without esophagitis; I25.10 Atherosclerotic heart disease of native coronary artery without angina pectoris; I34.1 Nonrheumatic mitral (valve) prolapse; Z86.73 Personal history of transient ischemic attack (TIA), and cerebral infarction without residual deficits; G47.30 Sleep apnea, unspecified; Z99.89 Dependence on other enabling machines and devices; F41.9 Anxiety disorder, unspecified; R29.6 Repeated falls; M79.7 Fibromyalgia; Z82.3 Family history of stroke; Z82.49 Family history of ischemic heart disease and other diseases of the circulatory system
CPT/HCPCS: 36415; 36416; 70450; 70496; 70498; 71045; 80053; 80061; 80306; 81001; 82962; 83036; 85025; 85610; 85730; 92523; 92610; 93005; 94664; 96372; 97110; 97161; 99285; C8929; G0378; J1650; J7030; J9999

== ENCOUNTER → 2025-08-03 12:42 | Outpatient (BNVA) | payer MEDICARE, SELFPAY | PROVIDERS: PCP Family Medicine; Referring Provider Emergency Medicine; Visit Provider Specialist | DX: I63.9 Cerebral infarction, unspecified (principal); R41.3 Other amnesia; R07.9 Chest pain, unspecified | CPT/HCPCS: 36415; 82542; 83520; 85651; 99205 ==

== ENCOUNTER → 2025-08-10 09:38 | Outpatient (BNVA) | payer MEDICARE, SELFPAY | PROVIDERS: PCP Family Medicine; Visit Provider Internal Medicine | DX: J45.20 Mild intermittent asthma, uncomplicated (principal); J82.83 Eosinophilic asthma; Q79.1 Other congenital malformations of diaphragm; J96.10 Chronic respiratory failure, unspecified whether with hypoxia or hypercapnia; Z99.81 Dependence on supplemental oxygen; G47.30 Sleep apnea, unspecified; Z99.89 Dependence on other enabling machines and devices; J44.9 Chronic obstructive pulmonary disease, unspecified | CPT/HCPCS: 99214 ==

== ENCOUNTER → 2025-08-11 09:26 | Outpatient (BNVA) | payer MEDICARE, SELFPAY | PROVIDERS: PCP Family Medicine; Visit Provider Internal Medicine Rheumatology | DX: M35.00 Sjogren syndrome, unspecified (principal); M06.041 Rheumatoid arthritis without rheumatoid factor, right hand; M06.042 Rheumatoid arthritis without rheumatoid factor, left hand; Z79.899 Other long term (current) drug therapy; Z71.85 Encounter for immunization safety counseling | CPT/HCPCS: 99214 ==

== ENCOUNTER 2025-08-25 07:09 | Outpatient (CLI) | payer MEDICARE, SELFPAY ==
--- NOTE | 2025-08-25 07:15 | MR_ITS ---
WS: [id number] MRI HEAD WITH CONTRAST TECHNIQUE: Sagittal T1, T2 axial, T2 axial FLAIR, axial susceptibility weighted imaging, axial diffusion weighted images, and coronal T2 images were obtained. Pre and post-T1 axial and post T1 coronal images. ADC and FSPGR images. CLINICAL INFORMATION: I63.9 - Cerebral infarction, unspecified COMPARISON: MRI 2016 FINDINGS: No evidence of restricted diffusion to suggest acute ischemia. Moderate small vessel changes progressed since 2016. Mild parenchymal volume loss. Normal posterior fossa. Normal vascular flow voids at the skull base. No extra-axial fluid collections. No evidence of mass or mass effect. Paranasal sinuses are well aerated. Mastoid air cells are well aerated. Normal optic chiasm and pituitary infundibulum. Temporal lobes and hippocampal formations are normal in appearance. Enhancement in the RIGHT anterior temporal lobe probably benign venous angioma. MR/MR head wo/w con [id number] IMPRESSION: 1. No evidence of restricted diffusion to suggest acute ischemia. 2. Moderate small vessel changes with mild parenchymal volume loss. Small vess el changes progressed since 2016. 3. No hemosiderin on susceptibility-weighted images. 4. Benign venous angioma RIGHT anterior temporal lobe. 5. No abnormal intracranial enhancement.
--- NOTE | 2025-08-25 08:00 | MR_ITS ---
WS: [id number] MRA HEAD TECHNIQUE: Axial 3-D TOF images obtained with axial images and axial, sagittal, and coronal 2-D reformatted images. CLINICAL INFORMATION: I63.9 - Cerebral infarction, unspecified COMPARISON: 2016 FINDINGS: Distal vertebral arteries are patent. Basilar artery is patent. Normal vascularity to the [employer] territory bilaterally. Both ICAs are patent at the skull base. Patent anterior communicating artery. Normal vascularity to the JOSE DANIEL and MCA territories bilaterally. No evidence of proximal flow-limiting stenosis. Small RIGHT A1 segment. MR/MR angio head wo con [id number] IMPRESSION: 1. Mild intracranial atheromatous disease more prominent involving the carotid siphon and [employer] territories. 2. Otherwise unremarkable intracranial MRA.
[2025-08-25] MEDS: gadobenate dimeglumine 20 mL vial IV (08:14)
== END 2025-08-25 07:10 | disposition home or self-care (01) ==
LOC: RAD 07:13
PROVIDERS: PCP Family Medicine; Visit Provider Specialist
DX: I63.9 Cerebral infarction, unspecified (principal); R41.3 Other amnesia; I67.2 Cerebral atherosclerosis; I67.89 Other cerebrovascular disease; D18.02 Hemangioma of intracranial structures
CPT/HCPCS: 70544; 70553

== ENCOUNTER 2025-09-09 06:56 | Outpatient (CLI) | payer MEDICARE, SELFPAY ==
[2025-09-09 07:28] VITALS: PULSE 111; RESP 18; O2SAT 97
== END 2025-09-09 06:57 | disposition home or self-care (01) ==
LOC: RT 06:56
PROVIDERS: PCP Family Medicine; Visit Provider Internal Medicine
DX: J44.9 Chronic obstructive pulmonary disease, unspecified (principal); J98.8 Other specified respiratory disorders
CPT/HCPCS: 94060; 94726; 94729; J7613